=== PATIENT | female | born 1955 | race Caucasian/White ===

== ENCOUNTER 2021-06-09 14:49 | Outpatient (CLI) | payer OTHER, SELFPAY ==
--- NOTE | ~2021-06-09 | DEXA_ITS ---
Bone Density Report Name: GLENNA BETTS Age: 66 Sex: Female Ethnicity: White Date of : 1955 Indication: postmenopausal; parental hip fracture; hysterectomy; Referring Provider: SHADE LARIOS Study: Bone densitometry was performed. Exam Date: June 09, 2021 Accession number: [id number] Bone Density: Region BMD T-score Z-score Classification AP Spine (L1-L4) 1.038 -0.1 1.8 Normal Femoral Neck (Left) 0.849 0.0 1.6 Normal Total Hip (Left) 1.049 0.9 2.2 Normal Total Hip Bilateral Avg 1.020 0.6 2.0 Normal Femoral Neck (Right) 0.853 0.0 1.7 Normal Total Hip (Right) 0.989 0.4 1.7 Normal World Health Organization criteria for BMD impression classify patients as: Normal (T-score at or above -1.0), Osteopenia (T-score between -1.0 and -2.5), or Osteoporosis (T-score at or below -2.5). 10-year Fracture Risk: FRAX not reported because: All T-scores for Spine Total, Hip Total, Femoral Neck at or above -1.0 Previous Exams: Region Exam Age BMD T-score BMD Change BMD Change Date g/cm2 vs Baseline vs Previous AP Spine(L1-L4) 06/09/2021 66 1.038 -0.1 0.052(5.3%)# -0.060(-5.5%)# 08/23/2012 57 1.098 0.5 0.113(11.4%)# 0.086(8.5%)# 05/15/2010 55 1.012 -0.3 0.027(2.8%)* 0.027(2.8%)* 06/24/2006 51 0.985 -0.6 Total Hip(Left) 06/09/2021 66 1.049 0.9 -0.059(-5.4%)# -0.066(-5.9%)# 08/23/2012 57 1.115 1.4 0.006(0.6%)# 0.080(7.7%)# 05/15/2010 55 1.035 0.8 -0.073(-6.6%)* -0.073(-6.6%)* 06/24/2006 51 1.109 1.4 Total Hip(Right) 06/09/2021 66 0.989 0.4 -0.046(-4.4%)# -0.144(-12.7%) 08/23/2012 57 1.133 1.6 0.098(9.5%)# 0.054(5.0%)# 05/15/2010 55 1.079 1.1 0.044(4.3%)* 0.044(4.3%)* 06/24/2006 51 1.035 0.8 *Denotes significance at 95% confidence level, LSC for AP Spine = 0.022 g/cm2, LSC for Total Hip = 0.027 g/cm2 Clinical Information Provided by Patient: Parent has had a hip fracture Has used the following medications: Vitamin D Has the following medical conditions: Hysterectomy Patient maximum height was 61 Menopause Age: 49 No regular weight bearing exercise Drinks caffeinated beverages Onset of menses at age 12 Number of children 1 Impression: The patient has normal bone mass. The patient has risk factors, including: parental hip fracture. No significant bone loss was observed. Discussion: BONE DENSITY IS ABOVE THE MINIMUM DESIRABLE LEVEL AT ALL SKELETAL
--- NOTE | ~2021-06-09 | MM_ITS ---
EXAMINATION: MM screening [facility] BI w олег HISTORY: Screening TECHNIQUE: Craniocaudal and mediolateral oblique 3-D tomosynthesis images were obtained and synthetic 2-D images were generated. CAD analysis was submitted and interpreted. COMPARISON: Comparison to multiple prior studies sequentially, with oldest reviewed study dated 07/26. BREAST PARENCHYMAL COMPOSITION: There are scattered areas of fibroglandular density. FINDINGS: There is no evidence of suspicious mass, calcification, or architectural distortion to sugg est malignancy in either breast. There has been no suspicious interval change. IMPRESSION: 1. No mammographic evidence of malignancy. 2. Recommend routine screening mammography in one year. BI-RADS Category 1: Negative Reviewed, dictated and finalized at location A.
== END 2021-06-09 14:50 | disposition home or self-care (01) ==
LOC: ANHIMG 14:50
PROVIDERS: PCP Emergency Medicine; Visit Provider Emergency Medicine
DX: Z12.31 Encounter for screening mammogram for malignant neoplasm of breast (principal); Z78.0 Asymptomatic menopausal state
CPT/HCPCS: 77063; 77067; 77080

== ENCOUNTER 2023-12-29 13:46 | Outpatient (CLI) | payer OTHER, SELFPAY ==
--- NOTE | ~2023-12-29 | XR_ITS ---
XR chest 2V DATE: 12/29/2023 14:06 INDICATION: Shortness of breath for 3 months, increasing in severity TECHNIQUE: PA and lateral views COMPARISON: None FINDINGS: Cardiomegaly. Aortic calcification and mild unfolding. No pulmonary consolidation, pleural effusion, pulmonary vascular congestion or pneumothorax is eviden t. Osteopenia. Scoliosis and degenerative spurring of the thoracic spine. IMPRESSION: Cardiomegaly, aortic atherosclerosis Reviewed, dictated and finalized at location B.
[2023-12-29 15:27] LABS: Hemoglobin A1C 5.3 % (<5.7)
[2023-12-29 15:31] LABS: Alanine Aminotransferase 15 U/L (6-35); Albumin Level 3.7 g/dL (3.5-5.1); Alkaline Phosphatase 55 U/L (38-126); Anion Gap 5 mmol/L (4-12); Aspartate Amino Transferase 19 U/L (14-36); Bilirubin,Total 0.4 mg/dL (0.2-1.3); Blood Urea Nitrogen 16 mg/dL (7-17); Calcium 9.1 mg/dL (8.4-10.2); Carbon Dioxide 31 mmol/L (22-30); Chloride 103 mmol/L (98-107); Cholesterol 155 mg/dL (0-200); Estimated Glomerular Filt Rate 55; Glucose 89 mg/dL (65-110); HDL Direct 46 mg/dL; Potassium 3.9 mmol/L (3.4-5.0); Sodium 139 mmol/L (137-145); Triglycerides 127 mg/dL (<150)
[2023-12-29 15:42] LABS: LDL Cholesterol Direct 100 mg/dL
[2023-12-29 16:06] LABS: Vitamin D 25 Hydroxy 37.1 ng/mL
== END 2023-12-29 13:47 | disposition home or self-care (01) ==
PROVIDERS: PCP Emergency Medicine; Visit Provider Emergency Medicine
DX: R07.1 Chest pain on breathing (principal); I10 Essential (primary) hypertension; E11.9 Type 2 diabetes mellitus without complications; E55.9 Vitamin D deficiency, unspecified; R06.02 Shortness of breath; I51.7 Cardiomegaly
CPT/HCPCS: 36415; 71046; 80053; 80061; 82306; 83036

== ENCOUNTER 2024-01-16 12:47 | Outpatient (CLI) | payer OTHER, SELFPAY ==
--- NOTE | 2024-01-16 12:51 | ECHO_ITS ---
Patient Info Name: Joann Rice Age: 68 years : 1955 Gender: Female Ht: 61 in Wt: 273 lbs BSA: 2.39 m2 HR: 83 bpm BP: 189 / 115 mmHg Heart Rhythm: Sinus Rhythm Technical Quality: Poor Exam Date: 01/16/2024 1:12 PM Exam Location: Echo Lab Patient Status: Outpatient Admit Date: 01/16/2024 Staff Ordering Physician: Ronnell Figueroa MD Esthetician Facialist: Cierra Palomares RDCS Attending Provider: Ronnell Figueroa MD Referring Physician: Henry FLYNN; Exam Type: CA echo dop color flow w con Study Info Indications - cardiomegaly Complete two-dimensional, color flow and Doppler transthoracic echocardiogram is performed with contrast to opacify the left ventricle and to improve the deliniation of the left ventricle endocardial borders. Contrast/Agitated Saline Contrast/Ag. Saline: Definity Amount: 3.00 ml Reason for Poor Study: poor echocardiographic windows Summary 1. Technically suboptimal study due to poor sonographic images. 2. Contrast administered improved wall motion interpretation. 3. Left ventricular chamber dimension is normal. 4. Left ventricular systolic function is normal, estimated at 65-70%. 5. There is moderate concentric increased left ventricular wall thickness. 6. The left ventricular diastolic function is grade I diastolic dysfunction. 7. E/e' 8 is minimally elevated. 8. No pulmonary hypertension, estimated pulmonary arterial systolic pressure is 11 mmHg. Left Ventricle Technically suboptimal study due to poor sonographic images. E/e' 8 is minimally elevated. Contrast administered improved wall motion interpretation. Left ventricular chamber dimension is normal. Left ventricular systolic function is normal, estimated at 65-70%. There is moderate concentric increased left ventricular wall thickness. The left ventricular diastolic function is grade I diastolic dysfunction. Right Ventricle Right ventricular systolic function is normal and with normal TAPSE 2.7 cm. Right ventricular chamber dimension is normal. Left Atria Left atrial chamber dimension is normal. Right Atria Right atrial chamber dimension is normal. Aortic Valve The aortic valve is not well visualized. Cannot determine number of aortic valve leaflets. There is no aortic valve stenosis. There is no aortic valve regurgitation. Pulmonic Valve There is no pulmonic regurgitation. Mitral Valve There is no mitral valve stenosis. There is no mitral valve regurgitation. Tricuspid Valve There is no tricuspid valve regurgitation. No pulmonary hypertension, estimated pulmonary arterial systolic pressure is 11 mmHg. Pericardium/Pleural There is no pericardial effusion. Inferior Vena Cava Inferior vena cava is not well visualized. Aorta The aortic root size at the sinus of Valsalva is not well visualized. Left Ventricular Outflow Tract Name Value Normal LVOT 2D LVOT Diameter 1.99 cm LVOT Doppler LVOT Peak Gradient 4 mmHg LVOT Mean Gradient 3 mmHg LVOT VTI 26.36 cm LVOT VTI/AV VTI Ratio 0.98 LVOT Stroke Volume 82.27 ml
[2024-01-16] MEDS: PERFLUTREN LIPID MICROSPHERES 1.5 ML VIAL DILUTED TO 10 ML TOTAL VOLUME IV PUSH (13:35)
--- NOTE | 2024-01-16 13:56 | IVDEFINITY ---
Prior to administration of IV Definity the patient was educated on the risks and benefits of the imaging enhancing agent including potential adverse side effects. The patient verbalized understanding. Allergies were verified. No exclusion criteria were identified and at least one of the following inclusion criteria were met: 1) physician request, 2) patient technically difficult to image (per the [place] [employer] of Echocardiography guidelines of two or more segments not discernable within the apical view), or 3) questionable left ventricular function. ?
== END 2024-01-16 12:48 | disposition home or self-care (01) ==
LOC: ANHCARD 12:48
PROVIDERS: PCP Emergency Medicine; Visit Provider Emergency Medicine
DX: I51.7 Cardiomegaly (principal); I70.0 Atherosclerosis of aorta; R93.1 Abnormal findings on diagnostic imaging of heart and coronary circulation
CPT/HCPCS: C8929; Q9957

== ENCOUNTER 2024-09-10 11:52 | Outpatient (CLI) | payer OTHER, SELFPAY ==
[2024-09-10 12:32] LABS: Alanine Aminotransferase 17 U/L (6-35); Albumin Level 4.3 g/dL (3.5-5.1); Alkaline Phosphatase 66 U/L (38-126); Anion Gap 7 mmol/L (4-12); Aspartate Amino Transferase 25 U/L (14-36); Bilirubin,Total 0.8 mg/dL (0.2-1.3); Blood Urea Nitrogen 10 mg/dL (7-17); Calcium 9.2 mg/dL (8.4-10.2); Carbon Dioxide 31 mmol/L (22-30); Chloride 102 mmol/L (98-107); Estimated Glomerular Filt Rate > 60; Glucose 95 mg/dL (65-110); Potassium 3.6 mmol/L (3.4-5.0); Sodium 140 mmol/L (137-145)
== END 2024-09-10 11:53 | disposition home or self-care (01) ==
LOC: ANHLAB 11:55
PROVIDERS: PCP Emergency Medicine; Visit Provider Emergency Medicine
DX: E78.5 Hyperlipidemia, unspecified (principal); E55.9 Vitamin D deficiency, unspecified
CPT/HCPCS: 36415; 80053; 82306

== ENCOUNTER 2025-06-11 20:20 | Inpatient (IN) | payer OTHER, SELFPAY ==
--- NOTE | ~2025-06-11 | CT_ITS ---
EXAMINATION: CTA chest PE abdomen pel DATE: 06/11/2025 23:04 INDICATION: Hypoxia. Abdominal pain. TECHNIQUE: Computed tomography angiography (CTA) of the chest was performed with 100 mL Omnipaque-350 intravenous contrast timed to evaluate the pulmonary arteries. Coronal maximum intensity projection 3D-reconstructions were created by the technologist. Computed tomography (CT) of the abdomen and pelvis was performed with intravenous contrast. Automated exposure control and iterative reconstruction technique were employed. The dose-length product was 2238.86 mGy-cm. COMPARISON: None. FINDINGS: CTA chest: The lungs demonstrate mild atelectasis with a dependent predominance. There are small right and moderate-sized left pleural effusions. Cardiomegaly is noted. No pericardial effusion. The central pulmonary arteries are enlarged, consistent with pulmonary arterial hypertension. There is no pulmonary embolus. There are bridging endplate osteophytes at multiple levels in the spine, consistent with diffuse idiopathic skeletal hyperostosis (DISH). CT abdomen and pelvis: There is heterogeneous liver enhancement, consistent with passive hepatic congestion. The spleen is normal. There are gallstones in the gallbladder, which is normal in size. The pancreas and adrenal glands are normal. 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 There are no dilated loops of bowel. The appendix is normal. There are no pathologically enlarged lymph nodes. There is no free intraperitoneal fluid. Body wall edema is noted. There is severe lumbar spondylosis. IMPRESSION: 1. Small right and moderate-sized left pleural effusions. 2. No pulmonary embolus. 3. Small volume of perihepatic ascites. 4. Heterogeneous liver enhancement, consistent with passive hepatic congestion. Reviewed, dictated and finalized at location E.
--- NOTE | ~2025-06-11 | US_ITS ---
EXAMINATION: US venous doppler [facility], 06/12/2025 8:45 CDT HISTORY: Elevated D-dimer COMPARISON: None Technique: Manuel-scale and color Doppler images were attempted of the lower saphenofemoral junction, common femoral vein,superficial femoral vein, proximal deep femoral vein, proximal deep femoral vein, popliteal vein and posterior tibial veins. Findings: Deep Venous System: There is thrombus within the left femoral vein with diminished flow compression, the remaining visualized deep venous system is unremarkable Within the superficial right greater saphenous vein there is thrombus with diminished flow Probable complex Mejia's cyst right knee measures 2.3 x 1.7 cm, outpatient MRI is suggested. IMPRESSION: 1. Left-sided DVT detailed above. Right-sided superficial thrombophlebitis Reviewed, dictated and finalized at location A.
--- NOTE | ~2025-06-11 | XR_ITS ---
Examination: XR chest 1V portable Clinical History: resp failure Comparison: 06/11/2025 Technique: Portable AP Findings: Right PICC. Heart size unchanged. Persistent left pleural effusion with complete lower lobe atelectasis and consolidation. Diffuse airspace opacities right lung. No acute bony abnormality. IMPRESSION: 1. Developing edema and/or airspace disease right lung. 2. Persistent left pleural effusion with complete lower lobe atelectasis and airspace consolidation. Reviewed, dictated and finalized at location R. IMPRESSION: 1. Developing edema and/or airspace disease right lung. 2. Persistent left pleural effusion with complete lower lobe atelectasis and a irspace consolidation.
--- NOTE | ~2025-06-11 | XR_ITS ---
EXAMINATION: XR chest 1V portable DATE: 06/11/2025 20:39 INDICATION: Hypoxia. Generalized weakness. TECHNIQUE: frontal view of the chest was obtained. COMPARISON: Chest radiograph dated 12/29/2023 FINDINGS: Diffuse perihilar and lower lung predominant indistinct interstitial opacities consistent with mild pulmonary edema. Opacities at the left lower lung zones with blunting at the costophrenic angle consistent with small left pleural effusion and associated left basilar atelectasis and/or pneumonia. No pn eumothorax or right-sided pleural effusion. Indeterminate 3 x 2 cm masslike opacity projecting over the right hilar region. Heart size is normal. There are bridging osteophytes at multiple levels consistent with diffuse idiopathic skeletal hyperostosis (DISH). IMPRESSION: 1. Perihilar and lower lung predominant indistinctness opacities consistent with mild pulmonary edema. 2. Small left pleural effusion with associated left basilar atelectasis and/or pneumonia. 3. Indeterminate 3 x 2 cm masslike opacity in the right hilar region which could represent an enlarged pulmonary artery in the setting of pulmonary hypertension, hilar or pulmonary mass or right hilar lymphadenopathy. Recommend follow-up chest CT with contrast for further evaluation. Reviewed, dictated and finalized at location A. IMPRESSION: 1. Perihilar and lower lung predominant indistinctness opacities consistent wit h mild pulmonary edema. 2. Small left pleural effusion with associated left basilar atelectasis and/or pneumonia. 3. Indeterminate 3 x 2 cm masslike opacity in the right hilar region which coul d represent an enlarged pulmonary artery in the setting of pulmonary hypertensi on, hilar or pulmonary mass or right hilar lymphadenopathy. Recommend follow-up chest CT with contrast for further evaluation.
--- NOTE | ~2025-06-11 | CT_ITS ---
EXAMINATION: CT cervical spine wo con DATE: 06/11/2025 20:58 INDICATION: Fall with head injury TECHNIQUE: Computed tomography (CT) of the cervical spine was performed without intravenous contrast. Automated exposure control and iterative reconstruction technique were employed. The dose-length product was 488.00 mGy-cm. COMPARISON: None FINDINGS: Alignment is normal. Mild osteoarthritis at the atlantoaxial articulation. Vertebral body and disc heights are normal. No fractures identified. Multilevel mild bilateral cervical uncovertebral osteoarthritis. There is also multilevel facet osteoarthritis, severe on the left at C6-C7, moderate severity on the right at C7-T1 and on the left at C2-C3 through C4-C5 and mild at the remaining cervical facet joints. There is also severe facet osteoarthritis bilaterally at T2-3 and T3-T4. No central canal stenosis. Neural foraminal stenosis, moderate on the right and mild on the left at T3-T4, mild bilaterally at T2-T3. Additional mild additional mild neural foraminal stenosis on the left at C6-C7. Small posterior layering pleural effusion at the visualized left upper lung zone. Cervical soft tissues are unremarkable. IMPRESSION: 1. Degenerative skeletal changes as detailed above. No acute osseous abnormality. 2. Incompletely visualized at least small left pleural effusion. Reviewed, dictated and finalized at location A. IMPRESSION: 1. Degenerative skeletal changes as detailed above. No acute osseous abnormalit y. 2. Incompletely visualized at least small left pleural effusion.
--- NOTE | ~2025-06-11 | XR_ITS ---
EXAMINATION: XR chest 1V portable DATE: 06/16/2025 08:55 INDICATION: Pneumonia TECHNIQUE: frontal view of the chest was obtained. COMPARISON: Chest radiograph dated 06/14/2025 FINDINGS: Right upper extremity peripherally inserted central venous catheter (PICC) tip at the caudal superior vena cava. Persistent opacities in the left lower lung zone which likely includes a small left pleural effusion. Mild bronchial wall thickening most prominent in the right perihilar region. No pneumothorax or right-sided pleural effusion. Cardiomegaly. IMPRESSION: 1. Persistent opacity left lower lung zone consistent with small pleural effusion and associated left basilar atelectasis and/or pneumonia. 2. Right perihilar bronchial wall thickening which could be seen with bronchitis or peribronchial cuffing related mild pulmonary edema. 3. Cardiomegaly. Reviewed, dictated and finalized at location A. IMPRESSION: 1. Persistent opacity left lower lung zone consistent with small pleural effusi on and associated left basilar atelectasis and/or pneumonia. 2. Right perihilar bronchial wall thickening which could be seen with bronchiti s or peribronchial cuffing related mild pulmonary edema. 3. Cardiomegaly.
--- NOTE | ~2025-06-11 | CT_ITS ---
EXAMINATION: CT brain wo con DATE: 06/11/2025 20:58 INDICATION: Fall with head injury TECHNIQUE: Computed tomography (CT) of the head was performed without intravenous contrast. Sagittal and coronal reconstructions were performed. The mA was adjusted according to patient size. Iterative reconstruction technique was employed. The dose-length product was 681.00 mGy-cm. COMPARISON: None FINDINGS: No fracture. No acute intracranial hemorrhage, acute infarction or abnormal extra axial fluid collection. There is moderate scattered white matter hypoattenuation consistent with chronic small vessel ischemic disease. Symmetric prominence of the sulci and ventricles consistent with mild age-appropriate diffuse cerebral volume loss. Ventricles are normal and symmetric. No mass/mass effect. The orbits, paranasal sinuses and mastoid air cells are normal. IMPRESSION: 1. Normal aging brain. No fracture or acute intracranial process. Reviewed, dictated and finalized at location A.
[2025-06-11 20:15] VITALS: BP 182/102; PULSE 96; RESP 24; TEMP 36.3; O2SAT 79
[2025-06-11 20:25] VITALS: PULSE 95
--- NOTE | 2025-06-11 20:25 | ECG_ITS ---
Test Date: 2025-06-11 20:27:57 Measurements Intervals [place] Rate: 94 P: 53 NH: 209 QRS: -75 QRSD: 80 T: 91 QT: 341 QTc: 428 Interpretive Statements SINUS RHYTHM MARKED LEFT AXIS DEVIATION [QRS AXIS < -30] POSSIBLE ANTERIOR MYOCARDIAL INFARCTION , OF INDETERMINATE AGE [30 ms Q WAVE IN V3/V4, OR R < 0.2 mV IN V4] ABNORMAL ECG No previous ECG available for comparison Electronically Signed On 06-12-2025 07:57:25 CDT by Nitish Palafox M.D.
[2025-06-11 20:27] VITALS: O2SAT 96; O2SAT 98
--- NOTE | 2025-06-11 20:31 | ED_ITS ---
HPI - Weakness General Chief complaint: Dizziness Stated complaint: LAID IN SAME PLACE x 2 DAYS, DIZZY Time Seen by Provider: 06/11/25 20:27 Source: patient and RN notes reviewed Mode of arrival: EMS History of Present Illness HPI Narrative: Patient presents with generalized weakness. Fell 2 days ago but couldn't get up so laid in the same place until she finally called her sister. Denies underlying respiratory conditions. States she told she has an enlarged heart. She has a months long history of dizziness but not now. Hit her head. No loss of consciousness. Not on anticoagulation. Weakness is not unilateral. Blood sugar 72 for EMS who also found her to be saturating 85% on room air and applied 2L NC. Upon arrival, patient reportedly 77% on room air, placed on 3L NC. She reports she has had a cough productive of mucous/phlegm but attributed it to chronic sinusitis. She has had a light fever and chills. Lives by herself. Sometimes short of breath. Has had abdominal pain for awhile. No nausea/vomiting/diarrhea. Does note that because she was on the ground for 2 days she had urinated and defecated on self. PCP Dr Figueroa. Related Data Allergies Allergy/AdvReac Type Severity Reaction Status Date / Time nystatin (From Mycostatin) Allergy Itching Verified 06/12/25 01:54 [facility] Past Medical History Medical History (Updated 06/12/25 @ 11:18 by Sony De La Cruz DO) Major depressive disorder, single episode, in partial remission URI with cough and congestion Fatigue Primary osteoarthritis of both knees Primary osteoarthritis involving multiple joints Mixed stress and urge urinary incontinence Hypertension Vitamin D deficiency disease Surgical History Surgical History (Updated 06/12/25 @ 04:33 by Phyllis Callejas APRN) History of medial meniscus repair of left knee H/O: hysterectomy Family History Family History Mother Patient's mother is in good health Father Cerebrovascular accident, Onset Age: 89 Other Carcinoma of colon Social History Social History (Updated 06/12/25 @ 04:34 by Phyllis Callejas APRN) Social History: She lives home alone. She has 1 estranged daughter. 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 Code status: Full code Smoking status: Never smoker Alcohol intake: never Substance use: never Do You Feel Safe in your Home?: Yes Lack of Transportation: No Lack of Food: Never True Current Housing: I Have Housing Concerned About Future Housing: No Difficulty Paying Gas/Electric Bills: No Difficulty Paying for Meds: No Currently Unemployed: No Education: Bachelor's Degree Difficulty w/ Childcare or Family Care: No Living arrangements: with family Spiritual care concerns: No Exam 2 Narrative: GENERAL: Well-appearing, well-nourished, and in no acute distress. HEAD: Normocephalic, atraumatic. EYES: Non injected, non icteric ENT: Nares clear, no rhinorrhea or epistaxis. Gross auditory acuity intact. Dry mucous membranes. NECK: Supple. No meningismus. CHEST: Speaking in full sentences. No respiratory distress. Diminished bilaterally. HEART: Regular rate and rhythm. . ABDOMEN: Soft, slightly distended. No rigidity or guarding. Not peritoneal SKIN: Warm, dry, no rash. NEURO: No focal deficits. Alert and oriented, occasional word finding difficulty. Answering questions. Following commands. Normal speech without aphasia or dysarthria. PSYCH:Somewhat strange affect. Course Vital Signs Vital signs: Vital Signs Temperature 97.4 F L 06/11/25 20:15 Pulse Rate 96 06/11/25 20:15 Respiratory Rate 24 H 06/11/25 20:15 Blood Pressure 182/102 H 06/11/25 20:15 Pulse Oximetry 79 L 06/11/25 20:15 Oxygen Delivery Room Air 06/11/25 20:15 Temperature 98.1 F 06/12/25 20:00 Pulse Rate 78 06/12/25 22:00 Respiratory Rate 16 06/12/25 21:15 Blood Pressure 124/71 06/12/25 20:00 Pulse Oximetry 93 06/12/25 21:15 Oxygen Delivery High Flow Nasal Cannula 06/12/25 21:15 Oxygen Flow Rate 6 06/12/25 21:15 MDM - Weakness MDM Narrative Medical decision making narrative: Patient presents with generalized weakness. Fell 2 days ago and struck head. Unable to get self up so laid in same place. In the emergency department she is afebrile with vital signs that show tachypnea, hypoxia on room air requiring nasal cannula, and hypertension. Lactic acid is elevated and she does appear dehydrated but given concern for heart failure, will be judicious with fluids and give 500cc initially. BNP is elevated concerning for acute heart failure with no prior for comparison and no diagnosis in EMR and she denied knowledge of history of this, not on meds for this. No leukocytosis. Her hemoglobin and hematocrit are elevated with no prior for comparison and I suggest this to be due to hemoconcentration given no p.o. intake/dehydration. She has an NSTEMI given the elevated troponin but otherwise normal EKG. No chest pain. Will order aspirin and repeat troponin. She has an LILY. Mild transaminitis. Dimer greater than 3. Will proceed with CTA imaging for PE and include the abdomen pelvis to be comprehensive given these abnormalities. Patient refusing further attempts at ABG. She has evidence of urinary tract infection verses markedly contaminated urine. Out of an abundance of precaution, will treat as such and ceftriaxone given. No previous cultures to guide therapy. It has reflexed to culture this time. Patient being difficult about obtaining repeat labs. I did request that antibiotics be initiated even if 2nd set of cultures not yet obtained. Repeat troponin essentially flat. There is evidence of pulmonary hypertension and this appears to be a new diagnosis given she had an echo in 2023 which explicitly noted that this was not present at the time. CT shows minimal of ground-glass attenuation of the lungs. Given this and her O2 requirement, although felt to likely represent the heart failure, azithromycin to cover for atypicals if there is a pneumonia. Discussed with patient her work up and need for admission. Repeat echo ordered. Discussed with hospitalist NIK Ferguson for admission, IMU given NSTEMI. Differential Diagnosis Differential diagnosis: Likely acute myocardial infarction, anemia, hypoglycemia, hypothyroidism, rhabdomyolysis, sepsis, dehydration and other (acute heart failure; PE; acute viral syndrome; pneumonia; UTI; electrolyte abnormalities) Medical Records Attestation: I reviewed the patient's medical records. Medical records narrative: ECHO 2023 Summary 1. Technically suboptimal study due to poor sonographic images. 2. Contrast administered improved wall motion interpretation. 3. Left ventricular chamber dimension is normal. 4. Left ventricular systolic function is normal, estimated at 65-70%. 5. There is moderate concentric increased left ventricular wall thickness. 6. The left ventricular diastolic function is grade I diastolic dysfunction. 7. E/e' 8 is minimally elevated. 8. No pulmonary hypertension, estimated pulmonary arterial systolic pressure is 11 mmHg. Lab Data 06/12/25 07:26 06/12/25 07:26 Labs: Lab Results 06/11/25 06/11/25 06/11/25 Range/Units 20:46 21:26 23:57 WBC 8.3 (4.5-10.0) K/mm3 RBC 6.00 H (4.2-5.4) M/mm3 Hgb 17.6 H (12.0-15.0) g/dL Hct 57.6 H (37.0-47.0) % MCV 96.0 (80-100) fl MCH 29.3 (26-34) pg MCHC 30.6 L (32-36) g/dl RDW 17.1 H (11.5-14.5) % Plt Count 219 (150-375) k/mm3 MPV 10.4 (7.4-10.4) fl Immature Gran % (Auto) 0.5 (0-0.5) % Neut % (Auto) 78.9 H (45.5-73.1) % Lymph % (Auto) 12.8 L (18.3-44.2) % Morton % (Auto) 7.2 (2.6-8.5) % Eos % (Auto) 0.1 (0-4.4) % Baso % (Auto) 0.5 (0.2-1.2) % Lymph # (Auto) 1.07 (0.9-3.2) K/mm3 Morton # (Auto) 0.6 (0.1-0.6) K/mm3 Eos # (Auto) 0.0 (0-0.3) K/mm3 Baso # (Auto) 0.0 (0.0-0.1) K/mm3 Abs Immat Gran (auto) 0.04 H (0.00-0.031) K/mm3 Absolute Neuts (auto) 6.6 (1.3-6.7) K/mm3 Absolute Nucleated RBC 0.000 (0.0-0.012) K/mm3 Nucleated RBC % 0.0 (0.0-0.2) % D-Dimer 3.35 H (<0.48) ug/mL Sodium 140 (137-145) mmol/L Potassium 4.7 (3.4-5.0) mmol/L Chloride 98 (98-107) mmol/L Carbon Dioxide 31 H (22-30) mmol/L Anion Gap 11 (4-12) mmol/L BUN 48 H D (7-17) mg/dL Creatinine 1.49 H (0.7-1.0) mg/dL Estim Creat Clear Calc 37 ml/min Estimated GFR 34 L (59 - ) Glucose 98 (65-110) mg/dL Lactic Acid 3.2 H (0.7-2.0) mmol/L Calcium 9.7 (8.4-10.2) mg/dL Magnesium 1.9 (1.6-2.3) mg/dL Total Bilirubin 2.2 H (0.2-1.3) mg/dL Direct Bilirubin 0.2 (0-0.3) mg/dL Indirect Bilirubin 0.7 (0-1.1) mg/dL AST 49 H (14-36) U/L ALT 41 H (6-35) U/L Alkaline Phosphatase 63 (38-126) U/L Total Creatine Kinase 94 (30-135) U/L Troponin I 0.069 H* 0.070 H* (0.000-0.034) ng/mL NT-Pro-B Natriuret Pep 04399 H (19.9-100) pg/mL Total Protein 8.2 (6.3-8.2) g/dL Albumin 4.4 (3.5-5.1) g/dL Lipase 158 (23-300) U/L TSH 2.060 (0.465-4.680) uIU/mL Urine Color Dark yellow (Yellow) Urine Appearance Clear (Clear) Urine pH 5.0 (5.0-9.0) Ur Specific [place] 1.022 (1.001-1.035) Urine Protein 1+ H (Negative) mg/dL Urine Glucose (UA) Trace H (Negative) mg/dL Urine Ketones Trace H (Negative) mg/dL Ur Blood (Man) Non-hemolyzed trace H (Negative) Urine Nitrate Positive H (Negative) Urine Bilirubin 1+ H (Negative) Urine Urobilinogen 2.0 H (<2.0) mg/dL Add Ur Microanalysis Reviewed Leukocyte Esterase Rfl 1+ H (Negative) KUSUM/UL Urine RBC 0-2 (0-2) /hpf Urine WBC 11-20 H (0-3) /hpf Ur Squamous Epith Cells Occasional (Few) /hpf Urine Bacteria 3+ H /hpf Urine Casts 11-20 Hyaline Casts Present (None) /lpf Urine Yeast (Budding) Present H (None) /hpf Influenza A (RT-PCR) Negative (Negative) Influenza B (RT-PCR) Negative (Negative) RSV (RT-PCR) Negative (Negative) SARS-CoV-2 RNA (RT-PCR) Negative (Negative) 06/12/25 06/12/25 Range/Units 07:26 07:34 WBC 8.7 (4.5-10.0) K/mm3 RBC 5.62 H (4.2-5.4) M/mm3 Hgb 16.4 H (12.0-15.0) g/dL Hct 54.5 H (37.0-47.0) % MCV 97.0 (80-100) fl MCH 29.2 (26-34) pg MCHC 30.1 L (32-36) g/dl RDW 16.0 H (11.5-14.5) % Plt Count 192 (150-375) k/mm3 MPV 10.6 H (7.4-10.4) fl Immature Gran % (Auto) 0.3 (0-0.5) % Neut % (Auto) 72.0 (45.5-73.1) % Lymph % (Auto) 18.2 L (18.3-44.2) % Morton % (Auto) 9.0 H (2.6-8.5) % Eos % (Auto) 0.3 (0-4.4) % Baso % (Auto) 0.2 (0.2-1.2) % Lymph # (Auto) 1.58 (0.9-3.2) K/mm3 Morton # (Auto) 0.8 H (0.1-0.6) K/mm3 Eos # (Auto) 0.0 (0-0.3) K/mm3 Baso # (Auto) 0.0 (0.0-0.1) K/mm3 Abs Immat Gran (auto) 0.03 (0.00-0.031) K/mm3 Absolute Neuts (auto) 6.2 (1.3-6.7) K/mm3 Absolute Nucleated RBC 0.020 H (0.0-0.012) K/mm3 Nucleated RBC % 0.2 (0.0-0.2) % D-Dimer (<0.48) ug/mL Sodium 139 (137-145) mmol/L Potassium 4.1 (3.4-5.0) mmol/L Chloride 95 L (98-107) mmol/L Carbon Dioxide 35 H (22-30) mmol/L Anion Gap 9 (4-12) mmol/L BUN 44 H (7-17) mg/dL Creatinine 1.45 H (0.7-1.0) mg/dL Estim Creat Clear Calc 39 ml/min Estimated GFR 36 L (59 - ) Glucose 78 (65-110) mg/dL Lactic Acid 1.0 (0.7-2.0) mmol/L Calcium 8.9 (8.4-10.2) mg/dL Magnesium (1.6-2.3) mg/dL Total Bilirubin (0.2-1.3) mg/dL Direct Bilirubin (0-0.3) mg/dL Indirect Bilirubin (0-1.1) mg/dL AST (14-36) U/L ALT (6-35) U/L Alkaline Phosphatase (38-126) U/L Total Creatine Kinase 76 (30-135) U/L Troponin I 0.072 H* (0.000-0.034) ng/mL NT-Pro-B Natriuret Pep (19.9-100) pg/mL Total Protein (6.3-8.2) g/dL Albumin (3.5-5.1) g/dL Lipase (23-300) U/L TSH (0.465-4.680) uIU/mL Urine Color (Yellow) Urine Appearance (Clear) Urine pH (5.0-9.0) Ur Specific [place] (1.001-1.035) Urine Protein (Negative) mg/dL Urine Glucose (UA) (Negative) mg/dL Urine Ketones (Negative) mg/dL Ur Blood (Man) (Negative) Urine Nitrate (Negative) Urine Bilirubin (Negative) Urine Urobilinogen (<2.0) mg/dL Add Ur Microanalysis Leukocyte Esterase Rfl (Negative) KUSUM/UL Urine RBC (0-2) /hpf Urine WBC (0-3) /hpf Ur Squamous Epith Cells (Few) /hpf Urine Bacteria /hpf Urine Casts Hyaline Casts (None) /lpf Urine Yeast (Budding) (None) /hpf Influenza A (RT-PCR) (Negative) Influenza B (RT-PCR) (Negative) RSV (RT-PCR) (Negative) SARS-CoV-2 RNA (RT-PCR) (Negative) ABG Data ABG results: 06/11/25 06/12/25 21:39 07:34 Puncture Site Cancelled Right radial ABG pH Cancelled 7.355 ABG pCO2 Cancelled 56.7 H ABG pO2 Cancelled 77.4 L ABG PO2/FiO2 Ratio Cancelled 2.42 ABG HCO3 Cancelled 31.0 H ABG O2 Saturation Cancelled 94.7 L ABG O2 Content Cancelled 22.1 H ABG Base Excess Cancelled 3.6 A-a Gradient Cancelled 84.4 Oxyhemoglobin Cancelled 92.4 Total Hemoglobin Cancelled 17.0 O2 Delivery Device Cancelled Nasal cannula O2 Liters/Min Cancelled 4.0 FiO2 Cancelled 32 Imaging Data Radiologist's impression: CTA Chest STat Rad: No pulmonary embolism. Cardiomegaly and pulmonary vascular congestion. Moderate left and small right pleural effusions. Pulmonary arterial hypertension. Incidental findings: Enlarged main and central pulmonary arteries suggesting pulmonary arterial hypertension. Mediastinal lipomatosis. Cardiomegaly. Pulmonary vascular congestion. Moderate left and small right pleural effusions with associated atelectasis. Minimal ground-glass attenuation of the lungs. CT Abd & Pelvis: Findings suggesting passive hepatic congestion. Cholelithiasis. Mild bladder wall thickening. Correlate for cystitis. Incidental findings: Dilated IVC. Heterogenous liver enhancement. Cholelithiasis. Horseshoe kidney. Hysterectomy. Edema in the subcutaneous tissues of the body wall. Minimal perihepatic and perisplenic free fluid. There is mild bladder wall thickening. Colonic diverticulosis. Normal appendix. ECG Data EKG #1: Attestation: I personally reviewed and interpreted this ECG as follows: ECG completion date: 06/11/25 ECG completion time: 20:27 Prior ECG tracings: available for review (Left axis deviation and first- degree AV block present previously) Interpretation: Normal sinus rhythm at a rate of 94 beats per minute. CA interval 209 consistent with a first-degree AV block. QRS 80. QT/QTC 341/428. Left axis deviation (QRS is positive with dominant R wave in Lead I; QRS is negative with dominant S wave in leads II, III, and aVF). No T-wave inversions. EKG #2: Attestation: I personally reviewed and interpreted this ECG as follows: ECG completion date: 06/11/25 ECG completion time: 23:42 Interpretation: Normal sinus rhythm at a rate of 92 beats per minute. CA interval 207. QRS 85. QT/QTC 355/441. Poor R-wave progression across the precordial leads. No T- wave inversions. Left axis deviation (QRS is positive with dominant R wave in Lead I; QRS is negative with dominant S wave in leads II, III, and aVF) Discharge Plan Discharge Clinical Impression: Weakness, Fall, Left axis deviation, First degree atrioventricular block by electrocardiogram, Pulmonary edema, Hypoxia, Acute heart failure, LILY (acute kidney injury), Non-ST elevation CO (NSTEMI), UTI (urinary tract infection), Cardiomegaly, Pulmonary vascular congestion, Bilateral pleural effusion, Pulmonary arterial hypertension, Hepatic congestion, Cholelithiasis, Cystitis, Horseshoe kidney, Colon, diverticulosis Patient Disposition: Still a Patient Condition: Stable
[2025-06-11 20:32] VITALS: BP 165/99; PULSE 93; RESP 26; O2SAT 96
[2025-06-11 20:53] LABS: Hematocrit 57.6 % (37.0-47.0); Hemoglobin 17.6 g/dL (12.0-15.0); Immature Granulocyte Percent A 0.5 % (0-0.5); Lymphocytes Absolute Auto 1.07 K/mm3 (0.9-3.2); Mean Corpuscular HGB Conc 30.6 g/dl (32-36); Mean Corpuscular Hemoglobin 29.3 pg (26-34); Mean Corpuscular Volume 96.0 fl (80-100); Nucleated Red Blood Cells Absolute Auto 0.000 K/mm3 (0.0-0.012); Nucleated Red Blood Cells Perc 0.0 % (0.0-0.2); Platelet Count Result 219 k/mm3 (150-375); Red Blood Count 6.00 M/mm3 (4.2-5.4); White Blood Count 8.3 K/mm3 (4.5-10.0)
[2025-06-11 21:03] LABS: Alanine Aminotransferase 41 U/L (6-35); Albumin Level 4.4 g/dL (3.5-5.1); Alkaline Phosphatase 63 U/L (38-126); Anion Gap 11 mmol/L (4-12); Aspartate Amino Transferase 49 U/L (14-36); Bilirubin,Total 2.2 mg/dL (0.2-1.3); Blood Urea Nitrogen 48 mg/dL (7-17); Calcium 9.7 mg/dL (8.4-10.2); Carbon Dioxide 31 mmol/L (22-30); Chloride 98 mmol/L (98-107); Creatine Kinase 94 U/L (30-135); Estimated CRCL calculation 37 ml/min; Estimated Glomerular Filt Rate 34; Glucose 98 mg/dL (65-110); Magnesium 1.9 mg/dL (1.6-2.3); Potassium 4.7 mmol/L (3.4-5.0); Sodium 140 mmol/L (137-145); Total Protein 8.2 g/dL (6.3-8.2)
[2025-06-11 21:22] LABS: NT Pro B Type Natriuretic Pept 29400 pg/mL (19.9-100); Troponin I 0.069 ng/mL (0.000-0.034)
[2025-06-11] MEDS: ASPIRIN 81 MG CHEWABLE TABLET 324 MG PO (21:34)
[2025-06-11] MEDS: SODIUM CHLORIDE 0.9% IV 500 ML 999 ML IV CONT (21:34)
[2025-06-11 21:39] LABS: Thyroid Stimulating Hormone 2.060 uIU/mL (0.465-4.680)
[2025-06-11 21:46] LABS: Lipase 158 U/L (23-300)
[2025-06-11 21:57] LABS: Add Urine Microscopic? YES; Appearance Urine Clear (Clear); Budding Yeast Urine Present /hpf; Glucose Urine UA Trace mg/dL (Negative); Leukocyte Esterase Ur 1+ LEU/UL (Negative); Need Manual Microscopic Reviewed; Nitrate Urine Positive (Negative); Specific Grav Ur 1.022 (1.001-1.035)
[2025-06-11 22:11] LABS: Influenza A QL RT-PCR Negative (Negative); Influenza B QL RT-PCR Negative (Negative); RSV RNA, RT-PCR Negative (Negative); SARS-CoV-2 RNA PCR Negative (Negative)
--- NOTE | 2025-06-11 22:30 | PC.NURSE ---
Phlebotomy was called due to being unable to collect second set of cultures by multiple attempts/people. Phlebotomy reports pt refuses to be stuck again. EDP notified.
--- NOTE | 2025-06-11 23:12 | PC.NURSE ---
This RN attempted to draw labs on pt. Pt asked for RN to come back in 30 minutes to draw blood.
[2025-06-11] MEDS: cefTRIAXone 1 GM in SODIUM CHLORIDE 0.9% IV 50 ML 100 ML IVPB (23:18)
--- NOTE | 2025-06-11 23:18 | PC.NURSE ---
EDP notified of no second set of cultures due to pt refusal. Antibiotic started per EDP order.
[2025-06-11 23:23] VITALS: BP 171/96; PULSE 95; RESP 21; O2SAT 100
[2025-06-11 23:32] VITALS: BP 174/98; PULSE 92; RESP 21; O2SAT 95
--- NOTE | 2025-06-11 23:46 | ECG_ITS ---
Test Date: 2025-06-11 23:42:41 Measurements Intervals [place] Rate: 92 P: 48 OR: 207 QRS: -84 QRSD: 85 T: 104 QT: 355 QTc: 441 Interpretive Statements SINUS RHYTHM WITH OCCASIONAL SUPRAVENTRICULAR PREMATURE COMPLEXES LEFT AXIS DEVIATION [QRS AXIS < -30] ANTERIOR MYOCARDIAL INFARCTION , OF INDETERMINATE AGE [40+ ms Q WAVE AND/OR ST/T ABNORMALITY IN V3/V4] ABNORMAL ECG Compared to ECG 06/11/2025 20:27:57 No significant changes Electronically Signed On 06-12-2025 07:59:10 CDT by Nitish Palafox M.D.
[2025-06-12] VITALS (30 sets, daily range): BP systolic 124–174; BP diastolic 59–101; PULSE 73–99; RESP 16–27; TEMP 36.3–36.9; O2SAT 88–100; BMI 51.0; BMI 50.7
--- NOTE | 2025-06-12 | ECHO_ITS ---
Patient Info Name: Joann Rice Age: 70 years : 1955 Gender: Female Ht: 61 in Wt: 260 lbs BSA: 2.33 m2 HR: 87 bpm BP: 152 / 87 mmHg Technical Quality: Poor Exam Date: 06/12/2025 12:16 PM Patient Status: I Admit Date: 06/12/2025 Exam Type: CA echo dop color flow w con Complete two-dimensional, color flow and Doppler transthoracic echocardiogram is performed with contrast to opacify the left ventricle and to improve the deliniation of the left ventricle endocardial borders. Staff Referring Physician: Phyllis Callejas NP Power Plant Inspector: Peng Pedro III Attending Provider: Kiko Contreras MD Contrast/Agitated Saline Contrast/Ag. Saline: Definity Amount: 2.00 ml Administered By: Peng Pedro III Existing IV Access: Yes IV Access Condition: patent with no signs of infiltration Summary 1. Technically suboptimal study due to poor sonographic images. 2. Definity contrast administered improved wall motion interpretation. 3. Left ventricular chamber dimension is normal. 4. D shape ventricular septum during systole suggest right pressure overload. 5. Left ventricular systolic function is preserved, estimated at 50-55. 6. There is moderate concentric increased left ventricular wall thickness. 7. The left ventricular diastolic function is normal. 8. Right ventricular chamber dimension is severely enlarged. 9. Right ventricular systolic function is significantly reduced with abnormal TAPSE 1.1 cm. 10. Right atrial chamber dimension is moderately enlarged. 11. There is mild aortic valve sclerosis. 12. There is moderate tricuspid valve regurgitation. 13. Moderate pulmonary hypertension, estimated pulmonary arterial systolic pressure is 50 mmHg. 14. There is trivial pericardial effusion. Left Ventricle Technically suboptimal study due to poor sonographic images. Left ventricular chamber dimension is normal. Left ventricular systolic function is preserved, estimated at 50-55. There is moderate concentric increased left ventricular wall thickness. The left ventricular diastolic function is normal. Tissue doppler was not performed. D shape ventricular septum during systole suggest right pressure overload. Definity contrast administered improved wall motion interpretation. Right Ventricle Right ventricular chamber dimension is severely enlarged. Right ventricular systolic function is significantly reduced with abnormal TAPSE 1.1 cm. Right ventricle was not well seen. Left Atria Left atrial chamber dimension is normal. Right Atria Right atrial chamber dimension is moderately enlarged. Aortic Valve The aortic valve is trileaflet. There is mild aortic valve sclerosis. There is no aortic valve stenosis. There is no aortic valve regurgitation. Pulmonic Valve There is no pulmonic regurgitation. Mitral Valve There is no mitral valve stenosis. There is no mitral valve regurgitation. Tricuspid Valve There is moderate tricuspid valve regurgitation. Moderate pulmonary hypertension, estimated pulmonary arterial systolic pressure is 50 mmHg. Pericardium/Pleural There is trivial pericardial effusion. Inferior Vena Cava Normal inferior vena cava with >50% collapse upon inspiration consistent with normal right atrial pressure, 5 mmHg. Aorta The aortic root size at the sinus of Valsalva is normal. Left Ventricular Outflow Tract Name Value Normal LVOT 2D LVOT Diameter 2.2 cm Pulmonic Valve Name Value Normal PV Doppler PV Peak Velocity 69 cm/s PV Peak Gradient 2 mmHg PV Mean Gradient 1 mmHg Mitral Valve Name Value Normal MV Doppler MV Peak Gradient 3 mmHg MV Mean Gradient 1 mmHg Tricuspid Valve Name Value Normal TV Regurgitation Doppler TR Peak Velocity 335 cm/s TR Peak Gradient 45 mmHg Estimated PAP/RSVP RA Pressure 5 mmHg <=5 PA Systolic Pressure 50 mmHg <36 RV Systolic Pressure 50 mmHg <36 TV Annular TDI TV Lateral [place]ber[place] s' Velocity 6.7 cm/s >=9.5 Aortic Valve Name Value Normal AV Regurgitation 2D LVOT Area 3.9 cm2 Ventricles Name Value Normal LV Dimensions 2D/MM IVS Diastolic Thickness (2D) 1.4 cm 0.6-1.0 LVID Diastole (2D) 3.4 cm 3.8-5.2 LVIW Diastolic Thickness (2D) 1.4 cm 0.6-0.9 LVID Systole (2D) 2.7 cm 2.2-3.5 LVOT Diameter 2.2 cm LV Mass (2D Cubed) 169.34 g 67.00-162.00 LV Mass Index (2D Cubed) 73 g/m2 43-95 Relative Wall Thickness (2D) 0.84 <=0.42 LV Fractional Shortening/Ejection Fraction 2D/MM LV Fractional Shortening (2D) 20 % 27-45 LV EF (2D Teichholz) 41 % Atria Name Value Normal RA Dimensions RA Systolic Major [place] Length (4C) 6.2 cm 2.2-2.8 RA Area (4C) 24.4 cm2 <=18.0 Report Signatures
[2025-06-12 00:29] LABS: Troponin I 0.070 ng/mL (0.000-0.034)
--- NOTE | 2025-06-12 00:37 | PCRCNOTE ---
Multiple attempts at collecting blood for ABG, second RT called and attempted, all unsuccessful. Patient refused any other attempts, including blood draws by RNs.
[2025-06-12] MEDS: AZITHROMYCIN IV 500 MG in SODIUM CHLORIDE 0.9% IV 250 ML IVPB (01:14)
[2025-06-12] MEDS: FUROSEMIDE INJ 40 MG/4 ML VIAL IV PUSH ×3 (01:24→17:19)
--- NOTE | 2025-06-12 02:34 | ADMGEN ---
This patient, Joann Rice, was admitted to IMU Room 203-01. Patient/family oriented to hospital policies and general routines including ID bracelet, bed and alarms, visiting hours, pain management, procedures, bathroom and other care routines, personal items, smoking policy, room service/diet, and visiting hours. Information on how to activate the Rapid Response Team has been discussed. Patient/Family are encouraged to report perceived risks to care and to ask questions if they do not understand what they are told or what they should do.
--- NOTE | 2025-06-12 03:44 | PM.IMHP ---
H&P: HPI History of Present Illness Date/Time: 06/12/25 03:44 Chief Complaint: Dizziness Narrative: This is a 70-year-old female patient who had a dizzy spell at home and had laid on the floor for couple days. She stated that she has been coughing since February and feels that she had an infection since then. She has been feeling weak ever since February. In the emergency room the patient had tachypnea and hypoxia. Oxygen was applied at 2 L per nasal cannula. Her EKG was read as sinus rhythm with occasional supraventricular premature complexes left axis deviation. Anterior myocardial infarction. Indeterminate age. STT wave abnormal T in V3 and V4. Chest x-ray was read as. Perihilar and lower lung predominant indistinctness opacities consistent with mild pulmonary edema. 2. Small left pleural effusion with associated left basilar atelectasis and/or pneumonia. 3. Indeterminate 3 x 2 cm masslike opacity in the right hilar region which could represent an enlarged pulmonary artery in the setting of pulmonary hypertension, hilar or pulmonary mass or right hilar lymphadenopathy. Recommend follow-up chest CT with contrast for further evaluation. Head CT was read by radiologist as a normal aging brain. No fracture or acute intracranial process. CT of the cervical spine was read as1. Degenerative skeletal changes as detailed above. No acute osseous abnormality. 2. Incompletely visualized at least small left pleural effusion. Her D-dimer was elevated to 3.35. The patient refused ABGs in the emergency room. Other abnormal labs include BUN 48, creatinine 1.49, estimated GFR 34, AST is 49, ALT is 41, and pro BMP 29,400. UA shows positive nitrates, 1+ leukocyte Estrace and urine wbc's 11 -20. Viral serologies negative. CT shows minimal of ground-glass attenuation of the lungs. Given this and her O2 requirement, although felt to likely represent the heart failure, azithromycin to cover for atypicals if there is a pneumonia. The patient was given Tylenol, Zofran, a L of IV fluids, aspirin, ceftriaxone, and azithromycin, and IV Lasix in the emergency room. The patient is being admitted to observation status in IMU on the date of service of 06/12/2025 Review of Systems Constitutional: Constitutional: Reports as per HPI and Reports no additional constitutional complaints Eyes: Eyes: Reports as per HPI and Reports no additional eye complaints ENT: Reports no additional ear, nose, mouth, and throat complaints and Reports Normal hearing present Cardiovascular: Cardiovascular: Reports no additional cardiovascular complaints Respiratory: Respiratory: Reports as per HPI and Reports no additional respiratory complaints Gastrointestinal: Gastrointestinal: Reports as per HPI and Reports no additional gastrointestinal complaints Genitourinary: Genitourinary: Reports no additional female genitourinary complaints Musculoskeletal: Musculoskeletal: Reports no additional musculoskeletal complaints Integumentary/Breasts: Skin/Breast: Reports system reviewed and no additional complaints, except as docu Neurologic: Reports no additional neurologic complaints and Reports Normal hearing present Psychiatric: Psychiatric: Reports no additional psychiatric complaints and Reports as per HPI Hematologic/Lymphatic: Hematologic/Lymphatic: Reports no additional hematologic/lymphatic complaints Allergic/Immunologic: Allergic/Immunologic: Reports no additional allergic/immunologic complaints [facility] Past Medical History Medical History (Updated 06/12/25 @ 04:54 by Phyllis Callejas APRN) Major depressive disorder, single episode, in partial remission URI with cough and congestion Fatigue Primary osteoarthritis of both knees Primary osteoarthritis involving multiple joints Mixed stress and urge urinary incontinence Hypertension Vitamin D deficiency disease Surgical History Surgical History (Updated 06/12/25 @ 04:33 by Phyllis Callejas APRN) History of medial meniscus repair of left knee H/O: hysterectomy Family History Family History Mother Patient's mother is in good health Father Cerebrovascular accident, Onset Age: 89 Other Carcinoma of colon Social History Social History (Updated 06/12/25 @ 04:34 by Phyllis Callejas APRN) Social History: She lives home alone. She has 1 estranged daughter. 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 Code status: Full code Smoking status: Never smoker Alcohol intake: never Substance use: never Do You Feel Safe in your Home?: Yes Lack of Transportation: No Lack of Food: Never True Current Housing: I Have Housing Concerned About Future Housing: No Difficulty Paying Gas/Electric Bills: No Difficulty Paying for Meds: No Currently Unemployed: No Education: Bachelor's Degree Difficulty w/ Childcare or Family Care: No Living arrangements: with family Spiritual care concerns: No Meds Home Medications and Allergies Home Medications ?Medication ?Instructions ?Recorded ?Confirmed ?Type duloxetine 60 mg capsule,delayed See Rx Instructions .Route 04/29/24 06/12/25 Rx release .COMPLEX #90 caps lisinopril 20 mg tablet See Rx Instructions .Route 04/29/24 06/12/25 Rx .COMPLEX #90 tabs albuterol sulfate 90 mcg/actuation See Rx Instructions .Route 09/09/24 06/12/25 Rx aerosol inhaler .COMPLEX #8.5 ea fluticasone propionate 50 See Rx Instructions .Route 10/01/24 06/12/25 Rx mcg/actuation nasal .COMPLEX #48 mL spray,suspension cholecalciferol (vitamin D3) 50 See Rx Instructions .Route 02/03/25 06/12/25 Rx mcg (2,000 unit) tablet .COMPLEX #90 tabs celecoxib 200 mg capsule See Rx Instructions .Route 04/21/25 06/12/25 Rx .COMPLEX #90 caps metoprolol succinate 50 mg 50 mg PO DAILY #90 tabs 04/21/25 06/12/25 Rx tablet,extended release 24 hr (Toprol XL) verapamil 240 mg tablet,extended See Rx Instructions .Route 04/21/25 06/12/25 Rx release .COMPLEX #90 tabs Allergies Allergy/AdvReac Type Severity Reaction Status Date / Time nystatin (From Mycostatin) Allergy Itching Verified 06/12/25 01:54 Vital Signs Vital Signs - 24 hr 06/11/25 20:15 06/11/25 20:25 06/11/25 20:27 Temperature 97.4 F L Pulse Rate 96 95 Respiratory Rate 24 H Blood Pressure 182/102 H Pulse Oximetry 79 L 96 Oxygen Delivery Room Air Nasal Cannula Oxygen Flow Rate 3 06/11/25 20:27 06/11/25 20:32 06/11/25 23:23 Temperature Pulse Rate 93 95 Respiratory Rate 26 H 21 H Blood Pressure 165/99 H 171/96 H Pulse Oximetry 98 96 100 Oxygen Delivery Nasal Cannula Oxygen Flow Rate 3 06/11/25 23:32 06/12/25 00:30 06/12/25 01:26 Temperature Pulse Rate 92 94 88 Respiratory Rate 21 H 27 H 23 H Blood Pressure 174/98 H 174/101 H Pulse Oximetry 95 98 Oxygen Delivery Oxygen Flow Rate 06/12/25 01:32 06/12/25 02:21 06/12/25 03:23 Temperature 97.7 F Pulse Rate 91 92 93 Respiratory Rate 20 22 H 20 Blood Pressure 164/100 H 160/100 H 152/87 H Pulse Oximetry 100 100 95 Oxygen Delivery Oxygen Flow Rate 06/12/25 03:31 Temperature Pulse Rate 87 Respiratory Rate 26 H Blood Pressure Pulse Oximetry 96 Oxygen Delivery Nasal Cannula Oxygen Flow Rate 5 Exam Const: General: cooperative, healthy appearing, comfortable, no acute distress, well developed, awake, Physically active, average body habitus and well nourished Nutritional Appearance: average body habitus and well nourished Orientation/consciousness: oriented to person, oriented to place, oriented to time and patient oriented x3 HENMT: Head: normal to inspection, No palpable skull fracture present, normocephalic, atraumatic and abrasion Ears: hearing grossly normal bilaterally and external ears normal Eyes: General: appearance normal, both eyes and all related structures Alignment and Position: alignment normal Periorbital: periorbital findings normal Eyelids: eyelids normal EOM: EOMs intact bilaterally Neck: Neck: normal visual inspection and full ROM Resp: Effort & Inspection: normal respiratory effort Auscultation: clear to auscultation bilaterally Cardio: Palpation: normal PMI Rate: regular rate Rhythm: regular rhythm Heart sounds: S1 normal heart sound present and S2 normal heart sound present Peripheral pulses: Peripheral pulses 2+ throughout GI: Inspection: normal to inspection Percussion: Yes normal to percussion Auscultation: normal bowel sounds Rectal Exam: deferred Skin: General skin exam: normal color Lesions: no lesions Rashes: no rashes Trauma: no lacerations or abrasions Wounds: no wounds Hair: normal Nails: normal Neuro: General: oriented to person, oriented to place, oriented to time and patient oriented x3 Cranial nerves: Yes Equal, round and reactive pupils present and Yes Normal hearing present Cognition (Neuro): normal cognition Speech: normal speech Motor exam (neuro): 5/5 motor strength present throughout Sensory Exam: normal sensation Extrem: General: normal to inspection Right upper extremity: normal to inspection and shoulder/upper arm Left upper extremity: normal to inspection and shoulder/upper arm Right lower extremity: normal to inspection Left lower extremity: normal to inspection Psych: Appearance: grossly normal Mental Status: mental status grossly normal Speech and movement: Normal speech and movement present Affect: normal affect Attitude: cooperative Thought process: Normal thought process present Thought content: Yes Normal thought content present H&P: Results Labs Labs: Short CBC 06/11/25 Range/Units 20:46 WBC 8.3 (4.5-10.0) K/mm3 Hgb 17.6 H (12.0-15.0) g/dL Hct 57.6 H (37.0-47.0) % Plt Count 219 (150-375) k/mm3 BMP 06/11/25 20:46 Sodium 140 Potassium 4.7 Chloride 98 Carbon Dioxide 31 H BUN 48 H D Creatinine 1.49 H Glucose 98 Calcium 9.7 Cardiac Enzymes 06/11/25 06/11/25 Range/Units 20:46 23:57 Total Creatine Kinase 94 (30-135) U/L Troponin I 0.069 H* 0.070 H* (0.000-0.034) ng/mL Liver Function 06/11/25 Range/Units 20:46 Total Bilirubin 2.2 H (0.2-1.3) mg/dL Direct Bilirubin 0.2 (0-0.3) mg/dL AST 49 H (14-36) U/L ALT 41 H (6-35) U/L Alkaline Phosphatase 63 (38-126) U/L Albumin 4.4 (3.5-5.1) g/dL Urine 06/11/25 Range/Units 21:26 Urine Color Dark yellow (Yellow) Urine Appearance Clear (Clear) Urine pH 5.0 (5.0-9.0) Ur Specific [place] 1.022 (1.001-1.035) Urine Protein 1+ H (Negative) mg/dL Urine Glucose (UA) Trace H (Negative) mg/dL ECG Interpretation: -Rate 92 [place] 207 QRSd 85 QT 355 QTc 441 --[place]-- P 48 QRS -84 T 104 SINUS RHYTHM WITH OCCASIONAL SUPRAVENTRICULAR PREMATURE COMPLEXES LEFT AXIS DEVIATION [QRS AXIS < -30] ANTERIOR MYOCARDIAL INFARCTION , OF INDETERMINATE AGE [40+ ms Q WAVE AND/OR ST/T ABNORMALITY IN V3/V4] Compared to ECG 06/11/2025 20:27:57 No significant changes Imaging CT scan - head: Radiologist's impression: Impressions Chest X-Ray 06/11/25 20:44 IMPRESSION: 1. Perihilar and lower lung predominant indistinctness opacities consistent with mild pulmonary edema. 2. Small left pleural effusion with associated left basilar atelectasis and/or pneumonia. 3. Indeterminate 3 x 2 cm masslike opacity in the right hilar region which could represent an enlarged pulmonary artery in the setting of pulmonary hypertension, hilar or pulmonary mass or right hilar lymphadenopathy. Recommend follow-up chest CT with contrast for further evaluation. Head CT 06/11/25 21:02 IMPRESSION: 1. Normal aging brain. No fracture or acute intracranial process. Cervical Spine CT 06/11/25 21:05 IMPRESSION: 1. Degenerative skeletal changes as detailed above. No acute osseous abnormality. 2. Incompletely visualized at least small left pleural effusion. CT shows minimal of ground-glass attenuation of the lungs. Assessment and Plan Assessment and plan (1) Pneumonia: Code(s): J18.9 - Pneumonia, unspecified organism Status: Acute Assessment and Plan: -continue with azithromycin and Rocephin at this time. QTC is at the higher end of normal. If there is concern for prolonged QTC may consider changing the azithromycin to doxycycline. -blood and sputum cultures are pending. -initially the patient was refusing the blood cultures however she did allow it after I explained why we needed to get the cultures. -continue with DuoNebs (2) Acute heart failure: Code(s): I50.9 - Heart failure, unspecified Status: Acute Assessment and Plan: -her last echo from 01/16/2024 was read as a following 1. Technically suboptimal study due to poor sonographic images. 2. Contrast administered improved wall motion interpretation. 3. Left ventricular chamber dimension is normal. 4. Left ventricular systolic function is normal, estimated at 65-70%. 5. There is moderate concentric increased left ventricular wall thickness. 6. The left ventricular diastolic function is grade I diastolic dysfunction. 7. E/e' 8 is minimally elevated. 8. No pulmonary hypertension, estimated pulmonary arterial systolic pressure is 11 mmHg. - echo has been ordered for today. -cardiology consultation would greatly be appreciated for CHF and elevated troponins. -she was initially given IV fluids in the emergency room and then a dose of Lasix. However given her acute kidney injury I did not continue with Lasix for now. -continue with strict I&O -daily weight -continued metoprolol -lisinopril is on hold at this time. (3) Hypertension: Qualifiers: Hypertension type: primary hypertension Qualified Code(s): I10 - Essential (primary) hypertension Code(s): I10 - Essential (primary) hypertension Status: Acute Assessment and Plan: Blood pressure is 152/87. -lisinopril currently on hold due to the acute kidney injury -continue with metoprolol -continued for a mental (4) Major depressive disorder, single episode, in partial remission: Code(s): F32.4 - Major depressive disorder, single episode, in partial remission Status: Acute Assessment and Plan: -continue duloxetine (5) LILY (acute kidney injury): Code(s): N17.9 - Acute kidney failure, unspecified Status: Acute Assessment and Plan: -no further Lasix were given at this time. -lisinopril is on hold. -the patient was just given a L of normal saline in the emergency room and then was given IV Lasix. -daily BMPs -avoid nephrotoxic medication. (6) UTI (urinary tract infection): Code(s): N39.0 - Urinary tract infection, site not specified Status: Acute Assessment and Plan: -the patient is currently on Rocephin -blood cultures are pending -UA with reflux culture. -she does not appear toxic. (7) Fall: Code(s): W19.XXXA - Unspecified fall, initial encounter Status: Acute Assessment and Plan: -the patient stated that she was weak and fell and laid on the floor for 2 days. -check daily CK. -care management specialist evaluation greatly be appreciated for possible rehab -PT OT evaluation currently be appreciated. Quality VTE Prophylaxis VTE prophylaxis: mechanical ordered
--- NOTE | 2025-06-12 04:30 | PC.NURSE ---
Addendum entered by Roz Curiel RN 06/12/25 04:44: phlebotomy tried to get culture with no luck, Kd in vascular access was called and message left. Original Note: phlebotomy tried to get ABGs with no luck, Kd in vascular access was called and message left.
[2025-06-12 07:34] LABS: Hematocrit 54.5 % (37.0-47.0); Hemoglobin 16.4 g/dL (12.0-15.0); Immature Granulocyte Percent A 0.3 % (0-0.5); Lymphocytes Absolute Auto 1.58 K/mm3 (0.9-3.2); Mean Corpuscular HGB Conc 30.1 g/dl (32-36); Mean Corpuscular Hemoglobin 29.2 pg (26-34); Mean Corpuscular Volume 97.0 fl (80-100); Nucleated Red Blood Cells Absolute Auto 0.020 K/mm3 (0.0-0.012); Nucleated Red Blood Cells Perc 0.2 % (0.0-0.2); Platelet Count Result 192 k/mm3 (150-375); Red Blood Count 5.62 M/mm3 (4.2-5.4); White Blood Count 8.7 K/mm3 (4.5-10.0)
[2025-06-12 07:37] LABS: Alveolar/Arterial O2 Gradient 84.4 mmHg; Fractional Inspired Oxygen 32 %; HCO3 ABG 31.0 mEq/l (22.0-26.0); Oxygen Content ABG 22.1 %vol (16.0-22.0); Oxygen Saturation ABG 94.7 % (95.0-100.0); PCO2 ABG 56.7 mmHg (35.0-45.0); PO2 ABG 77.4 mmHg (80.0-100.0); PO2 FiO2 Ratio Arterial Blood 2.42 %
[2025-06-12 07:48] LABS: Liters per Minute 4.0 LPM; Modified Allen's Test Pass; Site Drawn RIGHT RADIAL
[2025-06-12 07:54] LABS: Anion Gap 9 mmol/L (4-12); Blood Urea Nitrogen 44 mg/dL (7-17); Calcium 8.9 mg/dL (8.4-10.2); Carbon Dioxide 35 mmol/L (22-30); Chloride 95 mmol/L (98-107); Estimated CRCL calculation 39 ml/min; Estimated Glomerular Filt Rate 36; Glucose 78 mg/dL (65-110); Potassium 4.1 mmol/L (3.4-5.0); Sodium 139 mmol/L (137-145)
[2025-06-12 07:57] LABS: Creatine Kinase 76 U/L (30-135)
[2025-06-12 08:06] LABS: Troponin I 0.072 ng/mL (0.000-0.034)
[2025-06-12] MEDS: IPRATROPIUM 0.5 MG/ALBUTEROL SULFATE 2.5 MG AMPUL.NEB 3 ML INHALATION ×3 (08:23→21:15)
[2025-06-12] MEDS: METOPROLOL SUCCINATE EXT REL 50 MG TABCR PO ×2 (09:35→20:11)
[2025-06-12] MEDS: DULoxetine HCL 60 MG CAPSULE.DR BY MOUTH (09:35)
[2025-06-12] MEDS: VERAPAMIL HCL ER 240 MG TABLET.ER BY MOUTH (09:35)
[2025-06-12] MEDS: FLUTICASONE PROPIONATE 0.05% NA SPR 16 GM BTL (*BKC) 2 SPRAY NASAL (09:37)
--- NOTE | 2025-06-12 10:41 | PCPTNOTE ---
Pt has new DVT. Per nursing, pt not appropriate to see at this time. Will follow.
--- NOTE | 2025-06-12 11:14 | P.CONCA_ITS ---
Assessment and Plan Assessment and plan (1) BIRD (dyspnea on exertion): Code(s): R06.09 - Other forms of dyspnea Status: Acute Assessment and Plan: This could be due to pneumonia, CHF. (2) Pneumonia: Code(s): J18.9 - Pneumonia, unspecified organism Status: Acute Assessment and Plan: On antibiotics as per hospitalist. (3) Pulmonary vascular congestion: Code(s): R09.89 - Other specified symptoms and signs involving the circulatory and respiratory systems Status: Acute Assessment and Plan: On Lasix 40 mg IV BID. Check echo. (4) Hypertension: Qualifiers: Hypertension type: primary hypertension Qualified Code(s): I10 - Essential (primary) hypertension Code(s): I10 - Essential (primary) hypertension Status: Acute Assessment and Plan: Stable. Stop Verapamil since on Metoprolol. (5) Elevated troponin: Code(s): R79.89 - Other specified abnormal findings of blood chemistry Status: Acute Assessment and Plan: Slight elevation at 0.072. This could be due to pneumonia or CHF. Check echo. History of Present Illness History of Present Illness Consult date/time: 06/12/25 11:14 Reason For Visit: NSTEMI, Acute heart failure; Pulm HTN; Weakness; A Narrative: 70 yr old woman presents to hospital with weakness and sob. She has a history of hypertension. Reports she felt dizzy and weak at home, living alone and could not get up for 2 days. Admits to cough, fever, chills. Finally she called fire department to come get her and brought her to hospital. It was found she has pneumonia, CHF, started on antibiotics and diuretics. Currently not feeling dizzy. She normally can walk only around her house due to weakness. Denies chest pain, orthopnea, PND, edema, palpitations. Review of Systems 2 Review of Systems: All systems reviewed & are unremarkable except as noted in HPI and below Constitutional: Constitutional: Reports as per HPI, Reports chills, Reports fatigue and Reports fever(s) Cardiovascular: Cardiovascular: Reports as per HPI, Denies chest pain and Denies irregular heart rhythm Respiratory: Respiratory: Reports as per HPI, Reports cough and Reports dyspnea Gastrointestinal: Gastrointestinal: Reports as per HPI and Denies abdominal pain Genitourinary: Genitourinary: Reports as per HPI and Denies dysuria Musculoskeletal: Musculoskeletal: Reports as per HPI Neurologic: Reports as per HPI, Reports dizziness and Denies syncope [facility] Past Medical History Medical History (Updated 06/12/25 @ 11:18 by Sony De La Cruz DO) Major depressive disorder, single episode, in partial remission URI with cough and congestion Fatigue Primary osteoarthritis of both knees Primary osteoarthritis involving multiple joints Mixed stress and urge urinary incontinence Hypertension Vitamin D deficiency disease Surgical History Surgical History (Updated 06/12/25 @ 04:33 by Phyllis Callejas APRN) History of medial meniscus repair of left knee H/O: hysterectomy Family History Family History Mother Patient's mother is in good health Father Cerebrovascular accident, Onset Age: 89 Other Carcinoma of colon Social History Social History (Updated 06/12/25 @ 04:34 by Phyllis Callejas APRN) Social History: She lives home alone. She has 1 estranged daughter. 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 Code status: Full code Smoking status: Never smoker Alcohol intake: never Substance use: never Do You Feel Safe in your Home?: Yes Lack of Transportation: No Lack of Food: Never True Current Housing: I Have Housing Concerned About Future Housing: No Difficulty Paying Gas/Electric Bills: No Difficulty Paying for Meds: No Currently Unemployed: No Education: Bachelor's Degree Difficulty w/ Childcare or Family Care: No Living arrangements: with family Spiritual care concerns: No Meds Home Medications and Allergies Home Medications ?Medication ?Instructions ?Recorded ?Confirmed ?Type duloxetine 60 mg capsule,delayed See Rx Instructions . Route 04/29/24 06/12/25 Rx release .COMPLEX #90 caps lisinopril 20 mg tablet See Rx Instructions .Route 0 04/29/24 06/12/25 Rx .COMPLEX #90 tabs albuterol sulfate 90 mcg/actuation See Rx Instructions .Route 09/09/24 06/12/25 Rx aerosol inhaler .COMPLEX #8.5 ea fluticasone propionate 50 See Rx Instructions .Route 0 10/01/24 06/12/25 Rx mcg/actuation nasal .COMPLEX #48 mL spray,suspension cholecalciferol (vitamin D3) 50 See Rx Instructions .R oute 02/03/25 06/12/25 Rx mcg (2,000 unit) tablet .COMPLEX #90 tabs celecoxib 200 mg capsule See Rx Instructions .Route 0 04/21/25 06/12/25 Rx .COMPLEX #90 caps metoprolol succinate 50 mg 50 mg PO DAILY #90 tabs 06/12/25 Rx tablet,extended release 24 hr (Toprol XL) verapamil 240 mg tablet,extended See Rx Instructions . Route 04/21/25 06/12/25 Rx release .COMPLEX #90 tabs Allergies Allergy/AdvReac Type Severity Reaction Status Date / Time nystatin (From Mycostatin) Allergy Itching Verified 06/12/25 01:54 Vital Signs Vital Signs - 24 hr 06/11/25 20:15 06/11/25 20:25 06/11/25 20:27 Temperature 97.4 F L Pulse Rate 96 95 Respiratory Rate 24 H Blood Pressure 182/102 H Pulse Oximetry 79 L 96 Oxygen Delivery Room Air Nasal Cannula Oxygen Flow Rate 3 06/11/25 20:27 06/11/25 20:32 06/11/25 23:23 Temperature Pulse Rate 93 95 Respiratory Rate 26 H 21 H Blood Pressure 165/99 H 171/96 H Pulse Oximetry 98 96 100 Oxygen Delivery Nasal Cannula Oxygen Flow Rate 3 06/11/25 23:32 06/12/25 00:30 06/12/25 01:26 Temperature Pulse Rate 92 94 88 Respiratory Rate 21 H 27 H 23 H Blood Pressure 174/98 H 174/101 H Pulse Oximetry 95 98 Oxygen Delivery Oxygen Flow Rate 06/12/25 01:32 06/12/25 02:21 06/12/25 03:23 Temperature 97.7 F Pulse Rate 91 92 93 Respiratory Rate 20 22 H 20 Blood Pressure 164/100 H 160/100 H 152/87 H Pulse Oximetry 100 100 95 Oxygen Delivery Oxygen Flow Rate 06/12/25 03:31 06/12/25 04:00 06/12/25 06:00 Temperature Pulse Rate 87 85 87 Respiratory Rate 26 H Blood Pressure Pulse Oximetry 96 Oxygen Delivery Nasal Cannula Oxygen Flow Rate 5 06/12/25 07:55 06/12/25 08:24 06/12/25 08:24 Temperature 97.5 F L Pulse Rate 94 97 Respiratory Rate 20 20 Blood Pressure 158/89 H Pulse Oximetry 92 93 Oxygen Delivery Nasal Cannula Oxygen Flow Rate 4 06/12/25 08:32 06/12/25 08:35 06/12/25 08:44 Temperature Pulse Rate 99 Respiratory Rate 20 Blood Pressure Pulse Oximetry 88 L 94 Oxygen Delivery Nasal Cannula High Flow Nasal Cannula Oxygen Flow Rate 4 6 06/12/25 09:35 Temperature Pulse Rate 98 Respiratory Rate Blood Pressure Pulse Oximetry Oxygen Delivery Oxygen Flow Rate Exam 2 Const: General: cooperative, healthy appearing, comfortable and obese Resp: Auscultation: clear to auscultation bilaterally, no crackles, no rales, no rhonchi and no wheezes Cardio: Rate: regular rate Rhythm: regular rhythm Heart sounds: no murmurs Peripheral pulses: dorsalis pedis present GI: GI Palp: No abdominal tenderness and Yes Soft to palpation Neuro: General: oriented to person, oriented to place and oriented to time Extrem: Right lower extremity: no edema Left lower extremity: no edema Results Labs and Meds 06/12/25 07:26 06/12/25 07:26 Lab results: Cardiac Enzymes 06/11/25 06/11/25 06/12/25 Range/Units 20:46 23:57 07:26 AST 49 H (14-36) U/L Troponin I 0.069 H* 0.070 H* 0.072 H* (0.000-0.034) ng/mL CBC 06/11/25 06/12/25 Range/Units 20:46 07:26 WBC 8.3 8.7 (4.5-10.0) K/mm3 RBC 6.00 H 5.62 H (4.2-5.4) M/mm3 Hgb 17.6 H 16.4 H (12.0-15.0) g/dL Hct 57.6 H 54.5 H (37.0-47.0) % Plt Count 219 192 (150-375) k/mm3 Lymph # (Auto) 1.07 1.58 (0.9-3.2) K/mm3 [place] # (Auto) 0.6 0.8 H (0.1-0.6) K/mm3 Eos # (Auto) 0.0 0.0 (0-0.3) K/mm3 Baso # (Auto) 0.0 0.0 (0.0-0.1) K/mm3 Comprehensive Metabolic Panel 06/11/25 06/12/25 Range/Units 20:46 07:26 Sodium 140 139 (137-145) mmol/L Potassium 4.7 4.1 (3.4-5.0) mmol/L Chloride 98 95 L (98-107) mmol/L Carbon Dioxide 31 H 35 H (22-30) mmol/L BUN 48 H D 44 H (7-17) mg/dL Creatinine 1.49 H 1.45 H (0.7-1.0) mg/dL Glucose 98 78 (65-110) mg/dL Calcium 9.7 8.9 (8.4-10.2) mg/dL Direct Bilirubin 0.2 (0-0.3) mg/dL Indirect Bilirubin 0.7 (0-1.1) mg/dL AST 49 H (14-36) U/L ALT 41 H (6-35) U/L Alkaline Phosphatase 63 (38-126) U/L Total Protein 8.2 (6.3-8.2) g/dL Albumin 4.4 (3.5-5.1) g/dL Intake and Output 06/11/25 06/12/25 06/12/25 23:59 07:59 15:59 Intake Total 550 250 360 Output Total 300 1500 Balance 250 -1250 360 Intake: IV 550 250 Sodium Chloride 0.9% IV 500 ml 500 @ 999 mls/hr IV CONT .Q31M STA Rx#:[id number] Azithromycin IV 500 mg In 250 Sodium Chloride 0.9% IV 250 ml @ 250 mls/hr IVPB ONCE ONE Rx#: [id number] 1 gm In Sodium 50 Chloride 0.9% IV 50 ml @ 100 mls/hr IVPB ONCE STA Rx#: [id number] Oral 360 Output: Urine 300 1500 Patient Weight 06/12/25 23:59 Weight 121.8 kg
[2025-06-12] MEDS: LIDOCAINE 1% PF INJ 5 ML VIAL INFILTRATE (11:30)
[2025-06-12 12:45] LABS: INR 1.3; Prothrombin Time 15.7 Seconds (11.1-14.7)
[2025-06-12 12:46] LABS: Partial Thromboplastin Time 26.5 Seconds (22.3-36.8)
[2025-06-12] MEDS: PERFLUTREN LIPID MICROSPHERES 1.5 ML VIAL DILUTED TO 10 ML TOTAL VOLUME IV PUSH (12:48)
--- NOTE | 2025-06-12 12:48 | IVDEFINITY ---
Prior to administration of IV Definity the patient was educated on the risks and benefits of the imaging enhancing agent including potential adverse side effects. The patient verbalized understanding. Allergies were verified. No exclusion criteria were identified and at least one of the following inclusion criteria were met: 1) physician request, 2) patient technically difficult to image (per the [place] [employer] guidelines of two or more segments not discernable within the apical view), or 3) questionable left ventricular function. ?
[2025-06-12] MEDS: ALBUMIN HUMAN 25% 25 GM/100 ML 100 ML IVPB (12:57)
[2025-06-12] MEDS: HEPARIN SOD/D5W 100 UNITS/ML 25,000 UNITS/250 ML BAG 14 UNITS IV CONT (12:58)
[2025-06-12] MEDS: CENTRAL LINE FLUSH 10 ML IV PUSH ×2 (14:15→22:32)
--- NOTE | 2025-06-12 17:10 | PM.IMPN ---
Progress Note: A&P Assessment and Plan (1) Pneumonia: Code(s): J18.9 - Pneumonia, unspecified organism Status: Acute Assessment and Plan: CT chest no pneumonia Stop Antibiotics Pneumonia ruled out (2) Acute heart failure: Code(s): I50.9 - Heart failure, unspecified Status: Acute Assessment and Plan: Presented with fall and SOB CT chest showed bilateral pleural effusion ECHO showed grade I diastolic dysfunction, eF wnl Continue lasix 40mg bid IV cardiology following (3) Hypertension: Qualifiers: Hypertension type: primary hypertension Qualified Code(s): I10 - Essential (primary) hypertension Code(s): I10 - Essential (primary) hypertension Status: Acute Assessment and Plan: Blood pressure is 152/87. -lisinopril currently on hold due to the acute kidney injury -continue with metoprolol -continued for a mental (4) Major depressive disorder, single episode, in partial remission: Code(s): F32.4 - Major depressive disorder, single episode, in partial remission Status: Acute Assessment and Plan: -continue duloxetine (5) LILY (acute kidney injury): Code(s): N17.9 - Acute kidney failure, unspecified Status: Acute Assessment and Plan: likely cardiorenal . -lisinopril is on hold. contineu Lasix and monitor (6) UTI (urinary tract infection): Code(s): N39.0 - Urinary tract infection, site not specified Status: Acute Assessment and Plan: -the patient is currently on Rocephin -blood cultures are pending -UA with reflux culture. Ceftriaxone (7) Fall: Code(s): W19.XXXA - Unspecified fall, initial encounter Status: Acute Assessment and Plan: -the patient stated that she was weak and fell and laid on the floor for 2 days. -check daily CK. -healthcare administrator evaluation greatly be appreciated for possible rehab -PT OT evaluation currently be appreciated. Plan LLE DVT Venous doppler showed left sided DVT Started Heparin infusion Monitor DVT prophylaxis on heparin infusion Subjective Date/time seen: 06/12/25 17:10 Interval history: Comfortable at bedside Review of Systems Constitutional: Constitutional: Reports as per HPI and Reports no additional constitutional complaints Eyes: Eyes: Reports as per HPI and Reports no additional eye complaints ENT: Reports system reviewed and no additional complaints, except as documented and Reports Normal hearing present Cardiovascular: Cardiovascular: Reports no additional cardiovascular complaints Respiratory: Respiratory: Reports as per HPI and Reports no additional respiratory complaints Gastrointestinal: Gastrointestinal: Reports as per HPI and Reports no additional gastrointestinal complaints Genitourinary: Genitourinary: Reports no additional female genitourinary complaints Musculoskeletal: Musculoskeletal: Reports no additional musculoskeletal complaints Integumentary/Breasts: Skin/Breast: Reports system reviewed and no additional complaints, except as docu Neurologic: Reports system reviewed and no additional complaints, except as documented and Reports Normal hearing present Psychiatric: Psychiatric: Reports no additional psychiatric complaints and Reports as per HPI Hematologic/Lymphatic: Hematologic/Lymphatic: Reports no additional hematologic/lymphatic complaints Allergic/Immunologic: Allergic/Immunologic: Reports no additional allergic/immunologic complaints Exam Const: General: cooperative, healthy appearing, comfortable, no acute distress, well developed, awake, Physically active, average body habitus and well nourished Nutritional Appearance: average body habitus and well nourished Orientation/consciousness: oriented to person, oriented to place, oriented to time and patient oriented x3 HENMT: Head: normal to inspection, No palpable skull fracture present, normocephalic, atraumatic and abrasion Ears: hearing grossly normal bilaterally and external ears normal Eyes: General: appearance normal, both eyes and all related structures Alignment and Position: alignment normal Periorbital: periorbital findings normal Eyelids: eyelids normal Pupils: Equal, round and reactive pupils present EOM: EOMs intact bilaterally Neck: Neck: normal visual inspection and full ROM Resp: Effort & Inspection: normal respiratory effort Auscultation: clear to auscultation bilaterally Cardio: Palpation: normal PMI Rate: regular rate Rhythm: regular rhythm Heart sounds: S1 normal heart sound present and S2 normal heart sound present Peripheral pulses: Peripheral pulses 2+ throughout GI: Inspection: normal to inspection Auscultation: normal bowel sounds Rectal Exam: deferred Skin: General skin exam: normal color Lesions: no lesions Rashes: no rashes Trauma: no lacerations or abrasions Wounds: no wounds Hair: normal Nails: normal Neuro: General: oriented to person, oriented to place, oriented to time and patient oriented x3 Cranial nerves: Yes Equal, round and reactive pupils present and Yes Normal hearing present Cognition (Neuro): normal cognition Speech: normal speech Motor exam (neuro): 5/5 motor strength present throughout Sensory Exam: normal sensation Extrem: General: normal to inspection Right upper extremity: normal to inspection and shoulder/upper arm Left upper extremity: normal to inspection and shoulder/upper arm Right lower extremity: normal to inspection Left lower extremity: normal to inspection Psych: Appearance: grossly normal Mental Status: mental status grossly normal Speech and movement: Normal speech and movement present Affect: normal affect Attitude: cooperative Thought process: Normal thought process present Objective Data Vital Signs Vital Signs: Vital Signs - 24 hr 06/11/25 20:15 06/11/25 20:25 06/11/25 20:27 Temperature 97.4 F L Pulse Rate 96 95 Respiratory Rate 24 H Blood Pressure 182/102 H Pulse Oximetry 79 L 96 Oxygen Delivery Room Air Nasal Cannula Oxygen Flow Rate 3 06/11/25 20:27 06/11/25 20:32 06/11/25 23:23 Temperature Pulse Rate 93 95 Respiratory Rate 26 H 21 H Blood Pressure 165/99 H 171/96 H Pulse Oximetry 98 96 100 Oxygen Delivery Nasal Cannula Oxygen Flow Rate 3 06/11/25 23:32 06/12/25 00:30 06/12/25 01:26 Temperature Pulse Rate 92 94 88 Respiratory Rate 21 H 27 H 23 H Blood Pressure 174/98 H 174/101 H Pulse Oximetry 95 98 Oxygen Delivery Oxygen Flow Rate 06/12/25 01:32 06/12/25 02:21 06/12/25 03:23 Temperature 97.7 F Pulse Rate 91 92 93 Respiratory Rate 20 22 H 20 Blood Pressure 164/100 H 160/100 H 152/87 H Pulse Oximetry 100 100 95 Oxygen Delivery Oxygen Flow Rate 06/12/25 03:31 06/12/25 04:00 06/12/25 06:00 Temperature Pulse Rate 87 85 87 Respiratory Rate 26 H Blood Pressure Pulse Oximetry 96 Oxygen Delivery Nasal Cannula Oxygen Flow Rate 5 06/12/25 07:55 06/12/25 08:00 06/12/25 08:00 Temperature 97.5 F L Pulse Rate 94 93 Respiratory Rate 20 Blood Pressure 158/89 H Pulse Oximetry 92 94 Oxygen Delivery Nasal Cannula Oxygen Flow Rate 6 06/12/25 08:24 06/12/25 08:24 06/12/25 08:32 Temperature Pulse Rate 97 99 Respiratory Rate 20 20 Blood Pressure Pulse Oximetry 93 Oxygen Delivery Nasal Cannula Oxygen Flow Rate 4 06/12/25 08:35 06/12/25 08:44 06/12/25 09:35 Temperature Pulse Rate 98 Respiratory Rate Blood Pressure Pulse Oximetry 88 L 94 Oxygen Delivery Nasal Cannula High Flow Nasal Cannula Oxygen Flow Rate 4 6 06/12/25 10:00 06/12/25 12:00 06/12/25 12:00 Temperature Pulse Rate 96 86 Respiratory Rate Blood Pressure Pulse Oximetry 92 Oxygen Delivery Nasal Cannula Oxygen Flow Rate 6 06/12/25 12:49 06/12/25 13:45 06/12/25 13:53 Temperature 97.3 F L Pulse Rate 83 85 82 Respiratory Rate 18 20 20 Blood Pressure 125/68 Pulse Oximetry 92 Oxygen Delivery Oxygen Flow Rate 06/12/25 14:00 06/12/25 16:00 06/12/25 16:00 Temperature Pulse Rate 82 84 Respiratory Rate Blood Pressure Pulse Oximetry 92 Oxygen Delivery Nasal Cannula Oxygen Flow Rate 6 06/12/25 16:31 Temperature 98.5 F Pulse Rate 83 Respiratory Rate 18 Blood Pressure 124/59 L Pulse Oximetry 92 Oxygen Delivery Oxygen Flow Rate Intake/Output Intake/Output: Intake & Output 06/09/25 06/10/25 06/11/25 06/12/25 23:59 23:59 23:59 23:59 Intake Total 550 850 Output Total 300 2250 Balance 250 -1400 Meds/Results Medications: Active Medications Generic Name Dose Route Start Last Admin Trade Name Freq PRN Reason Stop Dose Admin Acetaminophen 650 mg 06/12/25 01:20 Acetaminophen 325 Mg Tablet PO Q4H PRN Mild Pain (1-3) or Fever Albuterol/Ipratropium 3 ml 06/12/25 08:00 06/12/25 13:44 Ipratropium 0.5 Mg/Albuterol Sulfate 2.5 Mg Ampul.Neb 3 Ml INHALATION 3 ml Q6HRT NEIL Administration Amlodipine Besylate 10 mg 06/13/25 09:00 Amlodipine Besylate 10 Mg Tablet PO DAILY NEIL Duloxetine HCl 60 mg 06/12/25 09:00 06/12/25 09:35 Duloxetine Hcl 60 Mg Capsule.Dr BY MOUTH 60 mg DAILY NEIL Administration Fluticasone Propionate 2 spray 06/12/25 09:00 06/12/25 09:37 Fluticasone Propionate 0.05% Na Spr 16 Gm Btl (*Bkc) NASAL 2 spray DAILY NEIL Administration Furosemide 40 mg 06/12/25 09:55 06/12/25 12:58 Furosemide Inj 40 Mg/4 Ml Vial IV PUSH 40 mg BID NEIL Administration Heparin Sodium (Porcine) 6,000 units 06/12/25 10:17 Heparin Sodium 5,000 Units/Ml Vial IV PUSH PRN PRN aPTT less than 55 seconds Heparin Sodium (Porcine) 3,000 units 06/12/25 10:17 Heparin Sodium 5,000 Units/Ml Vial IV PUSH PRN PRN aPTT 55 - 70 seconds Ceftriaxone Sodium 1 gm/ 50 mls @ 100 mls/hr 06/12/25 23:00 Sodium Chloride IVPB Q24H NEIL Azithromycin 500 mg/ Sodium 250 mls @ 250 mls/hr 06/12/25 23:00 Chloride IVPB 06/16/25 23:59 Q24H NEIL Heparin Sodium/Dextrose 25,000 units in 250 mls @ 14 mls/hr 06/12/25 10:20 06/12/25 12:58 Heparin Sodium/D5w 100 Units/Ml IV CONT 1,400 units/hr .[id number] NEIL 14 mls/hr Protocol Administration 1,400 UNITS/HR Metoprolol Succinate 50 mg 06/12/25 09:00 06/12/25 09:35 Metoprolol Succinate Ext Rel 50 Mg Tabcr PO 50 mg DAILY NEIL Administration Ondansetron HCl 4 mg 06/12/25 01:20 Ondansetron Inj 4 Mg/2 Ml Vial IV PUSH Q4H PRN Nausea Sodium Chloride 10 ml 06/12/25 14:00 06/12/25 14:15 Central Line Flush IV PUSH 10 ml Q8HR NEIL Administration Sodium Chloride 10 ml 06/12/25 12:09 Central Line Flush IV PUSH PRN PRN with TPN bag changes Sodium Chloride 20 ml 06/12/25 12:09 Central Line Flush IV PUSH PRN PRN after blood draws Radiology Results: ITS Impressions Chest X-Ray 06/11/25 20:44 IMPRESSION: 1. Perihilar and lower lung predominant indistinctness opacities consistent with mild pulmonary edema. 2. Small left pleural effusion with associated left basilar atelectasis and/or pneumonia. 3. Indeterminate 3 x 2 cm masslike opacity in the right hilar region which could represent an enlarged pulmonary artery in the setting of pulmonary hypertension, hilar or pulmonary mass or right hilar lymphadenopathy. Recommend follow-up chest CT with contrast for further evaluation. Head CT 06/11/25 21:02 IMPRESSION: 1. Normal aging brain. No fracture or acute intracranial process. Cervical Spine CT 06/11/25 21:05 IMPRESSION: 1. Degenerative skeletal changes as detailed above. No acute osseous abnormality. 2. Incompletely visualized at least small left pleural effusion. Chest/Abdomen/Pelvis CTA 06/12/25 07:59 IMPRESSION: 1. Small right and moderate-sized left pleural effusions. 2. No pulmonary embolus. 3. Small volume of perihepatic ascites. 4. Heterogeneous liver enhancement, consistent with passive hepatic congestion. Venous Doppler Study 06/12/25 09:59 IMPRESSION: 1. Left-sided DVT detailed above. Right-sided superficial thrombophlebitis Labs Labs: Laboratory Results - last 24 hr 06/11/25 06/11/25 06/11/25 20:46 21:26 21:39 WBC 8.3 RBC 6.00 H Hgb 17.6 H Hct 57.6 H MCV 96.0 MCH 29.3 MCHC 30.6 L RDW 17.1 H Plt Count 219 MPV 10.4 Immature Gran % (Auto) 0.5 Neut % (Auto) 78.9 H Lymph % (Auto) 12.8 L [place] % (Auto) 7.2 Eos % (Auto) 0.1 Baso % (Auto) 0.5 Lymph # (Auto) 1.07 [place] # (Auto) 0.6 Eos # (Auto) 0.0 Baso # (Auto) 0.0 Abs Immat Gran (auto) 0.04 H Absolute Neuts (auto) 6.6 Absolute Nucleated RBC 0.000 Nucleated RBC % 0.0 PT INR APTT D-Dimer 3.35 H Puncture Site Cancelled ABG pH Cancelled ABG pCO2 Cancelled ABG pO2 Cancelled ABG PO2/FiO2 Ratio Cancelled ABG HCO3 Cancelled ABG O2 Saturation Cancelled ABG O2 Content Cancelled ABG Base Excess Cancelled A-a Gradient Cancelled Oxyhemoglobin Cancelled Total Hemoglobin Cancelled O2 Delivery Device Cancelled O2 Liters/Min Cancelled FiO2 Cancelled Sodium 140 Potassium 4.7 Chloride 98 Carbon Dioxide 31 H Anion Gap 11 BUN 48 H D Creatinine 1.49 H Estim Creat Clear Calc 37 Estimated GFR 34 L Glucose 98 Lactic Acid 3.2 H Calcium 9.7 Magnesium 1.9 Total Bilirubin 2.2 H Direct Bilirubin 0.2 Indirect Bilirubin 0.7 AST 49 H ALT 41 H Alkaline Phosphatase 63 Total Creatine Kinase 94 Troponin I 0.069 H* NT-Pro-B Natriuret Pep 95711 H Total Protein 8.2 Albumin 4.4 Lipase 158 TSH 2.060 Urine Color Dark yellow Urine Appearance Clear Urine pH 5.0 Ur Specific [place] 1.022 Urine Protein 1+ H Urine Glucose (UA) Trace H Urine Ketones Trace H Ur Blood (Man) Non-hemolyzed trace H Urine Nitrate Positive H Urine Bilirubin 1+ H Urine Urobilinogen 2.0 H Add Ur Microanalysis Reviewed Leukocyte Esterase Rfl 1+ H Urine RBC 0-2 Urine WBC 11-20 H Ur Squamous Epith Cells Occasional Urine Bacteria 3+ H Urine Casts 11-20 Hyaline Casts Present Urine Yeast (Budding) Present H Influenza A (RT-PCR) Negative Influenza B (RT-PCR) Negative RSV (RT-PCR) Negative SARS-CoV-2 RNA (RT-PCR) Negative 06/11/25 06/12/25 06/12/25 23:57 07:26 07:34 WBC 8.7 RBC 5.62 H Hgb 16.4 H Hct 54.5 H MCV 97.0 MCH 29.2 MCHC 30.1 L RDW 16.0 H Plt Count 192 MPV 10.6 H Immature Gran % (Auto) 0.3 Neut % (Auto) 72.0 Lymph % (Auto) 18.2 L [place] % (Auto) 9.0 H Eos % (Auto) 0.3 Baso % (Auto) 0.2 Lymph # (Auto) 1.58 [place] # (Auto) 0.8 H Eos # (Auto) 0.0 Baso # (Auto) 0.0 Abs Immat Gran (auto) 0.03 Absolute Neuts (auto) 6.2 Absolute Nucleated RBC 0.020 H Nucleated RBC % 0.2 PT INR APTT D-Dimer Puncture Site Right radial ABG pH 7.355 ABG pCO2 56.7 H ABG pO2 77.4 L ABG PO2/FiO2 Ratio 2.42 ABG HCO3 31.0 H ABG O2 Saturation 94.7 L ABG O2 Content 22.1 H ABG Base Excess 3.6 A-a Gradient 84.4 Oxyhemoglobin 92.4 Total Hemoglobin 17.0 O2 Delivery Device Nasal cannula O2 Liters/Min 4.0 FiO2 32 Sodium 139 Potassium 4.1 Chloride 95 L Carbon Dioxide 35 H Anion Gap 9 BUN 44 H Creatinine 1.45 H Estim Creat Clear Calc 39 Estimated GFR 36 L Glucose 78 Lactic Acid 1.0 Calcium 8.9 Magnesium Total Bilirubin Direct Bilirubin Indirect Bilirubin AST ALT Alkaline Phosphatase Total Creatine Kinase 76 Troponin I 0.070 H* 0.072 H* NT-Pro-B Natriuret Pep Total Protein Albumin Lipase TSH Urine Color Urine Appearance Urine pH Ur Specific [place] Urine Protein Urine Glucose (UA) Urine Ketones Ur Blood (Man) Urine Nitrate Urine Bilirubin Urine Urobilinogen Add Ur Microanalysis Leukocyte Esterase Rfl Urine RBC Urine WBC Ur Squamous Epith Cells Urine Bacteria Urine Casts Hyaline Casts Urine Yeast (Budding) Influenza A (RT-PCR) Influenza B (RT-PCR) RSV (RT-PCR) SARS-CoV-2 RNA (RT-PCR) 06/12/25 12:23 WBC RBC Hgb Hct MCV MCH MCHC RDW Plt Count MPV Immature Gran % (Auto) Neut % (Auto) Lymph % (Auto) [place] % (Auto) Eos % (Auto) Baso % (Auto) Lymph # (Auto) [place] # (Auto) Eos # (Auto) Baso # (Auto) Abs Immat Gran (auto) Absolute Neuts (auto) Absolute Nucleated RBC Nucleated RBC % PT 15.7 H INR 1.3 APTT 26.5 D-Dimer Puncture Site ABG pH ABG pCO2 ABG pO2 ABG PO2/FiO2 Ratio ABG HCO3 ABG O2 Saturation ABG O2 Content ABG Base Excess A-a Gradient Oxyhemoglobin Total Hemoglobin O2 Delivery Device O2 Liters/Min FiO2 Sodium Potassium Chloride Carbon Dioxide Anion Gap BUN Creatinine Estim Creat Clear Calc Estimated GFR Glucose Lactic Acid Calcium Magnesium Total Bilirubin Direct Bilirubin Indirect Bilirubin AST ALT Alkaline Phosphatase Total Creatine Kinase Troponin I NT-Pro-B Natriuret Pep Total Protein Albumin Lipase TSH Urine Color Urine Appearance Urine pH Ur Specific [place] Urine Protein Urine Glucose (UA) Urine Ketones Ur Blood (Man) Urine Nitrate Urine Bilirubin Urine Urobilinogen Add Ur Microanalysis Leukocyte Esterase Rfl Urine RBC Urine WBC Ur Squamous Epith Cells Urine Bacteria Urine Casts Hyaline Casts Urine Yeast (Budding) Influenza A (RT-PCR) Influenza B (RT-PCR) RSV (RT-PCR) SARS-CoV-2 RNA (RT-PCR) Quality VTE Prophylaxis VTE prophylaxis: mechanical ordered
[2025-06-12 19:13] LABS: Partial Thromboplastin Time 125.1 Seconds (22.3-36.8)
[2025-06-12] MEDS: cefTRIAXone 1 GM in SODIUM CHLORIDE 0.9% IV 50 ML 100 ML IVPB (22:09)
[2025-06-13] VITALS (29 sets, daily range): BP systolic 90–126; BP diastolic 43–74; PULSE 58–74; RESP 16–23; TEMP 36.3–36.9; O2SAT 93–100
[2025-06-13 03:48] LABS: Alanine Aminotransferase 26 U/L (6-35); Albumin Level 3.7 g/dL (3.5-5.1); Alkaline Phosphatase 52 U/L (38-126); Aspartate Amino Transferase 36 U/L (14-36); Bilirubin,Total 1.1 mg/dL (0.2-1.3); Blood Urea Nitrogen 42 mg/dL (7-17); Calcium 8.5 mg/dL (8.4-10.2); Carbon Dioxide > 40 mmol/L (22-30); Chloride 91 mmol/L (98-107); Estimated CRCL calculation 37 ml/min; Estimated Glomerular Filt Rate 33; Glucose 118 mg/dL (65-110); Hematocrit 47.5 % (37.0-47.0); Hemoglobin 14.4 g/dL (12.0-15.0); Immature Granulocyte Percent A 0.4 % (0-0.5); Lymphocytes Absolute Auto 1.49 K/mm3 (0.9-3.2); Magnesium 1.5 mg/dL (1.6-2.3); Mean Corpuscular HGB Conc 30.3 g/dl (32-36); Mean Corpuscular Hemoglobin 29.3 pg (26-34); Mean Corpuscular Volume 96.7 fl (80-100); Nucleated Red Blood Cells Absolute Auto 0.000 K/mm3 (0.0-0.012); Nucleated Red Blood Cells Perc 0.0 % (0.0-0.2); Platelet Count Result 177 k/mm3 (150-375); Potassium 3.8 mmol/L (3.4-5.0); Red Blood Count 4.91 M/mm3 (4.2-5.4); Sodium 139 mmol/L (137-145); Total Protein 6.5 g/dL (6.3-8.2); White Blood Count 9.5 K/mm3 (4.5-10.0)
[2025-06-13 04:00] LABS: Partial Thromboplastin Time 125.5 Seconds (22.3-36.8)
[2025-06-13] MEDS: IPRATROPIUM 0.5 MG/ALBUTEROL SULFATE 2.5 MG AMPUL.NEB 3 ML INHALATION ×3 (07:43→20:05)
--- NOTE | 2025-06-13 08:00 | PM.PNCARD ---
Progress Note: A&P Assessment and Plan (1) BIRD (dyspnea on exertion): Code(s): R06.09 - Other forms of dyspnea Status: Acute Assessment and Plan: This could be due to acute on chronic diastolic CHF. (2) Pulmonary vascular congestion: Code(s): R09.89 - Other specified symptoms and signs involving the circulatory and respiratory systems Status: Acute Assessment and Plan: On Lasix 40 mg IV BID. 06/12/25 Echo: EF 50-55%, mod LVH, diastolic function not assessed with tissue doppler, severe RVE, mod RV dysfunction, mod MIKKI, mod TR, RVSP 50 mmHg. Change Lasix from IV to 40 mg PO BID. Start Jardiance 10 mg daily. No further cardiac workup is needed. Will sign off, please call with any questions. (3) Hypertension: Qualifiers: Hypertension type: primary hypertension Qualified Code(s): I10 - Essential (primary) hypertension Code(s): I10 - Essential (primary) hypertension Status: Acute Assessment and Plan: Stable. Stopped Verapamil since on Metoprolol. (4) Elevated troponin: Code(s): R79.89 - Other specified abnormal findings of blood chemistry Status: Acute Assessment and Plan: Slight elevation at 0.072. This could be due to acute on chronic diastolic CHF. (5) NSVT (nonsustained ventricular tachycardia): Code(s): I47.29 - Other ventricular tachycardia Status: Acute Assessment and Plan: Increase Metoprolol Succinate 50 mg BID. Replete Mag with Mag Sulfate 2 gm IV then 400 mg PO daily. (6) Left femoral vein DVT: Code(s): I82.412 - Acute embolism and thrombosis of left femoral vein Status: Acute Assessment and Plan: Due to sedentary state and weakness unable to get up for 2 days. Started on heparin drip. Needs to change to DOAC upon discharge for 3-6 months. Subjective Date/time seen: 06/13/25 08:00 Interval history: Feels weak. No chest pain or sob. Exam Const: General: cooperative, healthy appearing, comfortable and obese Nutritional Appearance: obese Orientation/consciousness: oriented to person, oriented to place and oriented to time Resp: Auscultation: clear to auscultation bilaterally, no crackles, no rales, no rhonchi and no wheezes Cardio: Rate: regular rate Rhythm: regular rhythm Heart sounds: no murmurs Peripheral pulses: dorsalis pedis present Neuro: General: oriented to person, oriented to place and oriented to time Extrem: Right lower extremity: no edema Left lower extremity: no edema Objective Data Vital Signs Vital Signs: Vital Signs - 24 hr 06/12/25 08:24 06/12/25 08:24 06/12/25 08:32 Temperature Pulse Rate 97 99 Respiratory Rate 20 20 Blood Pressure Pulse Oximetry 93 Oxygen Delivery Nasal Cannula Oxygen Flow Rate 4 Fraction of Inspired Oxygen 06/12/25 08:35 06/12/25 08:44 06/12/25 09:35 Temperature Pulse Rate 98 Respiratory Rate Blood Pressure Pulse Oximetry 88 L 94 Oxygen Delivery Nasal Cannula High Flow Nasal Cannula Oxygen Flow Rate 4 6 Fraction of Inspired Oxygen 06/12/25 10:00 06/12/25 12:00 06/12/25 12:00 Temperature Pulse Rate 96 86 Respiratory Rate Blood Pressure Pulse Oximetry 92 Oxygen Delivery Nasal Cannula Oxygen Flow Rate 6 Fraction of Inspired Oxygen 06/12/25 12:49 06/12/25 13:45 06/12/25 13:53 Temperature 97.3 F L Pulse Rate 83 85 82 Respiratory Rate 18 20 20 Blood Pressure 125/68 Pulse Oximetry 92 Oxygen Delivery Oxygen Flow Rate Fraction of Inspired Oxygen 06/12/25 14:00 06/12/25 16:00 06/12/25 16:00 Temperature Pulse Rate 82 84 Respiratory Rate Blood Pressure Pulse Oximetry 92 Oxygen Delivery Nasal Cannula Oxygen Flow Rate 6 Fraction of Inspired Oxygen 06/12/25 16:31 06/12/25 18:00 06/12/25 19:44 Temperature 98.5 F Pulse Rate 83 83 Respiratory Rate 18 Blood Pressure 124/59 L Pulse Oximetry 92 92 Oxygen Delivery High Flow Nasal Cannula Oxygen Flow Rate 6 Fraction of Inspired Oxygen 06/12/25 20:00 06/12/25 20:00 06/12/25 20:11 Temperature 98.1 F Pulse Rate 81 73 83 Respiratory Rate 22 H Blood Pressure 124/71 Pulse Oximetry 92 Oxygen Delivery Oxygen Flow Rate Fraction of Inspired Oxygen 06/12/25 21:15 06/12/25 21:15 06/12/25 22:00 Temperature Pulse Rate 81 81 78 Respiratory Rate 16 16 Blood Pressure Pulse Oximetry 93 Oxygen Delivery High Flow Nasal Cannula Oxygen Flow Rate 6 Fraction of Inspired Oxygen 06/12/25 23:10 06/13/25 00:00 06/13/25 00:00 Temperature 98 F Pulse Rate 67 68 Respiratory Rate 22 H Blood Pressure 120/66 Pulse Oximetry 90 93 Oxygen Delivery High Flow Nasal Cannula Oxygen Flow Rate 6 Fraction of Inspired Oxygen 06/13/25 02:00 06/13/25 04:00 06/13/25 04:00 Temperature 98.5 F Pulse Rate 60 61 Respiratory Rate 20 Blood Pressure 90/74 L Pulse Oximetry 93 95 Oxygen Delivery High Flow Nasal Cannula Oxygen Flow Rate 6 Fraction of Inspired Oxygen 06/13/25 04:00 06/13/25 05:12 06/13/25 06:00 Temperature Pulse Rate 62 60 Respiratory Rate Blood Pressure 121/63 Pulse Oximetry Oxygen Delivery Oxygen Flow Rate Fraction of Inspired Oxygen 06/13/25 07:43 06/13/25 07:57 06/13/25 07:58 Temperature 98.2 F Pulse Rate 74 60 60 Respiratory Rate 18 16 23 H Blood Pressure 114/57 L Pulse Oximetry 95 100 Oxygen Delivery High Flow Therapy with Fa Oxygen Flow Rate 30 Fraction of Inspired Oxygen 50 06/13/25 07:59 Temperature Pulse Rate 68 Respiratory Rate 18 Blood Pressure Pulse Oximetry Oxygen Delivery Oxygen Flow Rate Fraction of Inspired Oxygen Intake/Output Intake/Output: Intake & Output 06/10/25 06/11/25 06/12/25 06/13/25 23:59 23:59 23:59 23:59 Intake Total 550 1528 333 Output Total 300 2651 1200 Balance 144 -6993 -442 Meds/Results Medications: Active Medications Generic Name Dose Route Start Last Admin Trade Name Freq PRN Reason Stop Dose Admin Acetaminophen 650 mg 06/12/25 01:20 Acetaminophen 325 Mg Tablet PO Q4H PRN Mild Pain (1-3) or Fever Albuterol/Ipratropium 3 ml 06/12/25 08:00 06/13/25 07:43 Ipratropium 0.5 Mg/Albuterol Sulfate 2.5 Mg Ampul.Neb 3 Ml INHALATION 3 ml Q6HRT NEIL Administration Duloxetine HCl 60 mg 06/12/25 09:00 06/12/25 09:35 Duloxetine Hcl 60 Mg Capsule.Dr BY MOUTH 60 mg DAILY NEIL Administration Empagliflozin 10 mg 06/13/25 09:00 Empagliflozin 10 Mg Tablet PO DAILY NEIL Fluticasone Propionate 2 spray 06/12/25 09:00 06/12/25 09:37 Fluticasone Propionate 0.05% Na Spr 16 Gm Btl (*Bkc) NASAL 2 spray DAILY NEIL Administration Furosemide 40 mg 06/12/25 09:55 06/12/25 17:19 Furosemide Inj 40 Mg/4 Ml Vial IV PUSH 40 mg BID NEIL Administration Heparin Sodium (Porcine) 6,000 units 06/12/25 10:17 Heparin Sodium 5,000 Units/Ml Vial IV PUSH PRN PRN aPTT less than 55 seconds Heparin Sodium (Porcine) 3,000 units 06/12/25 10:17 Heparin Sodium 5,000 Units/Ml Vial IV PUSH PRN PRN aPTT 55 - 70 seconds Ceftriaxone Sodium 1 gm/ 50 mls @ 100 mls/hr 06/12/25 23:00 06/12/25 22:09 Sodium Chloride IVPB 100 mls/hr Q24H NEIL Administration Heparin Sodium/Dextrose 25,000 units in 250 mls @ 10 mls/hr 06/12/25 10:20 06/13/25 03:00 Heparin Sodium/D5w 100 Units/Ml IV CONT 1,000 units/hr .Q24H NEIL 10 mls/hr Protocol Titration 1,000 UNITS/HR Magnesium Sulfate 2 gm in 50 mls @ 25 mls/hr 06/13/25 06:36 Magnesium Sulf 2 Gm/Water 50ml IVPB 06/13/25 08:35 ONCE ONE Magnesium Oxide 400 mg 06/13/25 09:00 Magnesium Oxide 400 Mg Tablet PO DAILY NEIL Metoprolol Succinate 50 mg 06/12/25 21:00 06/12/25 20:11 Metoprolol Succinate Ext Rel 50 Mg Tabcr PO 50 mg Q12HR NEIL Administration Ondansetron HCl 4 mg 06/12/25 01:20 Ondansetron Inj 4 Mg/2 Ml Vial IV PUSH Q4H PRN Nausea Sodium Chloride 10 ml 06/12/25 14:00 06/12/25 22:32 Central Line Flush IV PUSH 10 ml Q8HR NEIL Administration Sodium Chloride 10 ml 06/12/25 12:09 Central Line Flush IV PUSH PRN PRN with TPN bag changes Sodium Chloride 20 ml 06/12/25 12:09 Central Line Flush IV PUSH PRN PRN after blood draws Radiology Results: ITS Impressions Chest X-Ray 06/11/25 20:44 IMPRESSION: 1. Perihilar and lower lung predominant indistinctness opacities consistent with mild pulmonary edema. 2. Small left pleural effusion with associated left basilar atelectasis and/or pneumonia. 3. Indeterminate 3 x 2 cm masslike opacity in the right hilar region which could represent an enlarged pulmonary artery in the setting of pulmonary hypertension, hilar or pulmonary mass or right hilar lymphadenopathy. Recommend follow-up chest CT with contrast for further evaluation. Head CT 06/11/25 21:02 IMPRESSION: 1. Normal aging brain. No fracture or acute intracranial process. Cervical Spine CT 06/11/25 21:05 IMPRESSION: 1. Degenerative skeletal changes as detailed above. No acute osseous abnormality. 2. Incompletely visualized at least small left pleural effusion. Chest/Abdomen/Pelvis CTA 06/12/25 07:59 IMPRESSION: 1. Small right and moderate-sized left pleural effusions. 2. No pulmonary embolus. 3. Small volume of perihepatic ascites. 4. Heterogeneous liver enhancement, consistent with passive hepatic congestion. Venous Doppler Study 06/12/25 09:59 IMPRESSION: 1. Left-sided DVT detailed above. Right-sided superficial thrombophlebitis Labs Labs: Laboratory Results - last 24 hr 06/11/25 06/12/25 06/12/25 21:39 07:26 12:23 WBC RBC Hgb Hct MCV MCH MCHC RDW Plt Count MPV Immature Gran % (Auto) Neut % (Auto) Lymph % (Auto) [place] % (Auto) Eos % (Auto) Baso % (Auto) Lymph # (Auto) [place] # (Auto) Eos # (Auto) Baso # (Auto) Abs Immat Gran (auto) Absolute Neuts (auto) Absolute Nucleated RBC Nucleated RBC % PT 15.7 H INR 1.3 APTT 26.5 Puncture Site Cancelled ABG pH Cancelled ABG pCO2 Cancelled ABG pO2 Cancelled ABG PO2/FiO2 Ratio Cancelled ABG HCO3 Cancelled ABG O2 Saturation Cancelled ABG O2 Content Cancelled ABG Base Excess Cancelled A-a Gradient Cancelled Oxyhemoglobin Cancelled Total Hemoglobin Cancelled O2 Delivery Device Cancelled O2 Liters/Min Cancelled FiO2 Cancelled Sodium Potassium Chloride Carbon Dioxide Anion Gap BUN Creatinine Estim Creat Clear Calc Estimated GFR Glucose Calcium Magnesium Total Bilirubin AST ALT Alkaline Phosphatase Troponin I 0.072 H* Total Protein Albumin 06/12/25 06/13/25 18:49 01:20 WBC 9.5 RBC 4.91 Hgb 14.4 Hct 47.5 H MCV 96.7 MCH 29.3 MCHC 30.3 L RDW 15.9 H Plt Count 177 MPV 10.4 Immature Gran % (Auto) 0.4 Neut % (Auto) 72.2 Lymph % (Auto) 15.7 L [place] % (Auto) 9.8 H Eos % (Auto) 1.5 Baso % (Auto) 0.4 Lymph # (Auto) 1.49 [place] # (Auto) 0.9 H Eos # (Auto) 0.1 Baso # (Auto) 0.0 Abs Immat Gran (auto) 0.04 H Absolute Neuts (auto) 6.8 H Absolute Nucleated RBC 0.000 Nucleated RBC % 0.0 PT INR APTT 125.1 H 125.5 H Puncture Site ABG pH ABG pCO2 ABG pO2 ABG PO2/FiO2 Ratio ABG HCO3 ABG O2 Saturation ABG O2 Content ABG Base Excess A-a Gradient Oxyhemoglobin Total Hemoglobin O2 Delivery Device O2 Liters/Min FiO2 Sodium 139 Potassium 3.8 Chloride 91 L Carbon Dioxide > 40 H Anion Gap BUN 42 H Creatinine 1.55 H Estim Creat Clear Calc 37 Estimated GFR 33 L Glucose 118 H Calcium 8.5 Magnesium 1.5 L Total Bilirubin 1.1 AST 36 ALT 26 Alkaline Phosphatase 52 Troponin I Total Protein 6.5 Albumin 3.7
[2025-06-13] MEDS: DULoxetine HCL 60 MG CAPSULE.DR BY MOUTH (08:17)
[2025-06-13] MEDS: METOPROLOL SUCCINATE EXT REL 50 MG TABCR PO ×2 (08:17→20:24)
[2025-06-13] MEDS: EMPAGLIFLOZIN 10 MG TABLET PO (08:18)
[2025-06-13] MEDS: MAGNESIUM SULF 2 GM/WATER 50ML 2 GM/50 ML BAG IVPB (08:18)
[2025-06-13] MEDS: HEPARIN SOD/D5W 100 UNITS/ML 25,000 UNITS/250 ML BAG 10 UNITS IV CONT (08:18)
[2025-06-13] MEDS: MAGNESIUM OXIDE 400 MG TABLET PO (08:18)
[2025-06-13] MEDS: FUROSEMIDE INJ 40 MG/4 ML VIAL IV PUSH (08:18)
[2025-06-13] MEDS: CENTRAL LINE FLUSH 10 ML IV PUSH ×3 (08:20→20:31)
[2025-06-13 10:09] LABS: Partial Thromboplastin Time 78.1 Seconds (22.3-36.8)
[2025-06-13] MEDS: acetaZOLAMIDE SODIUM FOR INJ 500 MG VIAL IV PUSH (13:15)
--- NOTE | 2025-06-13 15:00 | P.PNIM_ITS ---
Progress Note: A&P Assessment and Plan (1) Pneumonia: Code(s): J18.9 - Pneumonia, unspecified organism Status: Acute Assessment and Plan: CT chest no pneumonia Stop Antibiotics Pneumonia ruled out (2) Acute heart failure: Code(s): I50.9 - Heart failure, unspecified Status: Acute Assessment and Plan: Presented with fall and SOB CT chest showed bilateral pleural effusion ECHO showed grade I diastolic dysfunction, eF wnl Hold Lasix, Now on Acetazolamide, contineu Jar[facility] cardiology following (3) Hypertension: Qualifiers: Hypertension type: primary hypertension Qualified Code(s): I10 - Essential (primary) hypertension Code(s): I10 - Essential (primary) hypertension Status: Acute Assessment and Plan: Blood pressure is 111/57 -lisinopril currently on hold due to the acute kidney injury -continue with metoprolol -continued for a mental (4) Major depressive disorder, single episode, in partial remission: Code(s): F32.4 - Major depressive disorder, single episode, in partial remission Status: Acute Assessment and Plan: -continue duloxetine (5) LILY (acute kidney injury): Code(s): N17.9 - Acute kidney failure, unspecified Status: Acute Assessment and Plan: likely cardiorenal . -lisinopril is on hold. Cr 1.55 from 1.49 Laisx on hold, now on Diamox (6) UTI (urinary tract infection): Code(s): N39.0 - Urinary tract infection, site not specified Status: Acute Assessment and Plan: -the patient is currently on Rocephin -blood cultures are pending -UA with reflux culture. Ceftriaxone (7) Fall: Code(s): W19.XXXA - Unspecified fall, initial encounter Status: Acute Assessment and Plan: -the patient stated that she was weak and fell and laid on the floor for 2 days. -check daily CK. -post acute care nurse practitioner evaluation greatly be appreciated for possible rehab -PT OT evaluation currently be appreciated. Plan LLE DVT Venous doppler showed left sided DVT ON Heparin infusion Monitor Metabolic alkalosis Holding lasix, now on Acetazolamide Acute hypoxemic resp failure improving from heart failure Continue diuresis Now on 10 liters airvo, titrate DVT prophylaxis on heparin infusion PT/OT for discharge disposition Subjective Date/time seen: 06/13/25 15:00 Interval history: Comfortable at bedside Started Acetazolamide due to Contraction alkalosis Review of Systems Constitutional: Constitutional: Reports as per HPI and Reports no additional constitutional complaints Eyes: Eyes: Reports as per HPI and Reports no additional eye complaints ENT: Reports system reviewed and no additional complaints, except as documented and Reports Normal hearing present Cardiovascular: Cardiovascular: Reports no additional cardiovascular complaints Respiratory: Respiratory: Reports as per HPI and Reports no additional respiratory complaints Gastrointestinal: Gastrointestinal: Reports as per HPI and Reports no additional gastrointestinal complaints Genitourinary: Genitourinary: Reports no additional female genitourinary complaints Musculoskeletal: Musculoskeletal: Reports no additional musculoskeletal complaints Integumentary/Breasts: Skin/Breast: Reports system reviewed and no additional complaints, except as docu Neurologic: Reports system reviewed and no additional complaints, except as documented and Reports Normal hearing present Psychiatric: Psychiatric: Reports no additional psychiatric complaints and Reports as per HPI Hematologic/Lymphatic: Hematologic/Lymphatic: Reports no additional hematologic/lymphatic complaints Allergic/Immunologic: Allergic/Immunologic: Reports no additional allergic/immunologic complaints Exam Const: General: cooperative, healthy appearing, comfortable, no acute distress, well developed, awake, Physically active, average body habitus and well nourished Nutritional Appearance: average body habitus and well nourished Orientation/consciousness: oriented to person, oriented to place, oriented to time and patient oriented x3 HENMT: Head: normal to inspection, No palpable skull fracture present, normocephalic, atraumatic and abrasion Ears: hearing grossly normal bilaterally and external ears normal Eyes: General: appearance normal, both eyes and all related structures Alignment and Position: alignment normal Periorbital: periorbital findings normal Eyelids: eyelids normal Pupils: Equal, round and reactive pupils present EOM: EOMs intact bilaterally Neck: Neck: normal visual inspection and full ROM Resp: Effort & Inspection: normal respiratory effort Auscultation: clear to auscultation bilaterally Cardio: Palpation: normal PMI Rate: regular rate Rhythm: regular rhythm Heart sounds: S1 normal heart sound present and S2 normal heart sound present Peripheral pulses: Peripheral pulses 2+ throughout GI: Inspection: normal to inspection Auscultation: normal bowel sounds Rectal Exam: deferred Skin: General skin exam: normal color Lesions: no lesions Rashes: no rashes Trauma: no lacerations or abrasions Wounds: no wounds Hair: normal Nails: normal Neuro: General: oriented to person, oriented to place, oriented to time and patient oriented x3 Cranial nerves: Yes Equal, round and reactive pupils present and Yes Normal hearing present Cognition (Neuro): normal cognition Speech: normal speech Motor exam (neuro): 5/5 motor strength present throughout Sensory Exam: normal sensation Extrem: General: normal to inspection Right upper extremity: normal to inspection and shoulder/upper arm Left upper extremity: normal to inspection and shoulder/upper arm Right lower extremity: normal to inspection Left lower extremity: normal to inspection Psych: Appearance: grossly normal Mental Status: mental status grossly normal Speech and movement: Normal speech and movement present Affect: normal affect Attitude: cooperative Thought process: Normal thought process present Objective Data Vital Signs Vital Signs: Vital Signs - 24 hr 06/12/25 16:00 06/12/25 16:00 06/12/25 16:31 Temperature 98.5 F Pulse Rate 84 83 Respiratory Rate 18 Blood Pressure 124/59 L Pulse Oximetry 92 92 Oxygen Delivery Nasal Cannula Oxygen Flow Rate 6 Fraction of Inspired Oxygen 06/12/25 18:00 06/12/25 19:44 06/12/25 20:00 Temperature 98.1 F Pulse Rate 83 81 Respiratory Rate 22 H Blood Pressure 124/71 Pulse Oximetry 92 92 Oxygen Delivery High Flow Nasal Cannula Oxygen Flow Rate 6 Fraction of Inspired Oxygen 06/12/25 20:00 06/12/25 20:11 06/12/25 21:15 Temperature Pulse Rate 73 83 81 Respiratory Rate 16 Blood Pressure Pulse Oximetry Oxygen Delivery Oxygen Flow Rate Fraction of Inspired Oxygen 06/12/25 21:15 06/12/25 22:00 06/12/25 23:10 Temperature Pulse Rate 81 78 Respiratory Rate 16 Blood Pressure Pulse Oximetry 93 90 Oxygen Delivery High Flow Nasal Cannula High Flow Nasal Cannula Oxygen Flow Rate 6 6 Fraction of Inspired Oxygen 06/13/25 00:00 06/13/25 00:00 06/13/25 02:00 Temperature 98 F Pulse Rate 67 68 60 Respiratory Rate 22 H Blood Pressure 120/66 Pulse Oximetry 93 Oxygen Delivery Oxygen Flow Rate Fraction of Inspired Oxygen 06/13/25 04:00 06/13/25 04:00 06/13/25 04:00 Temperature 98.5 F Pulse Rate 61 62 Respiratory Rate 20 Blood Pressure 90/74 L Pulse Oximetry 93 95 Oxygen Delivery High Flow Nasal Cannula Oxygen Flow Rate 6 Fraction of Inspired Oxygen 06/13/25 05:12 06/13/25 06:00 06/13/25 07:43 Temperature Pulse Rate 60 74 Respiratory Rate 18 Blood Pressure 121/63 Pulse Oximetry Oxygen Delivery Oxygen Flow Rate Fraction of Inspired Oxygen 06/13/25 07:57 06/13/25 07:58 06/13/25 07:59 Temperature 98.2 F Pulse Rate 60 60 68 Respiratory Rate 16 23 H 18 Blood Pressure 114/57 L Pulse Oximetry 95 100 Oxygen Delivery High Flow Therapy with Fa Oxygen Flow Rate 30 Fraction of Inspired Oxygen 50 06/13/25 08:00 06/13/25 08:00 06/13/25 08:17 Temperature Pulse Rate 67 58 L Respiratory Rate Blood Pressure Pulse Oximetry 96 Oxygen Delivery High Flow Therapy with Fa Oxygen Flow Rate 10 Fraction of Inspired Oxygen 30 06/13/25 10:00 06/13/25 10:12 06/13/25 10:25 Temperature Pulse Rate 74 Respiratory Rate Blood Pressure Pulse Oximetry Oxygen Delivery High Flow Therapy with Fa High Flow Therapy with Fa Oxygen Flow Rate 10 10 Fraction of Inspired Oxygen 06/13/25 12:00 06/13/25 13:26 06/13/25 13:35 Temperature 97.7 F Pulse Rate 62 70 70 Respiratory Rate 20 18 16 Blood Pressure 111/57 L Pulse Oximetry 96 95 Oxygen Delivery High Flow Therapy with Na Oxygen Flow Rate 20 Fraction of Inspired Oxygen 45 06/13/25 13:37 Temperature Pulse Rate 72 Respiratory Rate 18 Blood Pressure Pulse Oximetry Oxygen Delivery Oxygen Flow Rate Fraction of Inspired Oxygen Intake/Output Intake/Output: Intake & Output 06/10/25 06/11/25 06/12/25 06/13/25 23:59 23:59 23:59 23:59 Intake Total 550 1528 885.7 Output Total 300 2651 1200 Balance 250 -1123 -314.3 Meds/Results Medications: Active Medications Generic Name Dose Route Start Last Admin Trade Name Freq PRN Reason Stop Dose Admin Acetaminophen 650 mg 06/12/25 01:20 Acetaminophen 325 Mg Tablet PO Q4H PRN Mild Pain (1-3) or Fever Acetazolamide Sodium 500 mg 06/13/25 09:45 06/13/25 13:15 Acetazolamide Sodium For Inj 500 Mg Vial IV PUSH 500 mg DAILY NEIL Administration Albuterol/Ipratropium 3 ml 06/12/25 08:00 06/13/25 13:26 Ipratropium 0.5 Mg/Albuterol Sulfate 2.5 Mg Ampul.Neb 3 Ml INHALATION 3 ml Q6HRT NEIL Administration Duloxetine HCl 60 mg 06/12/25 09:00 06/13/25 08:17 Duloxetine Hcl 60 Mg Capsule.Dr BY MOUTH 60 mg DAILY NEIL Administration Empagliflozin 10 mg 06/13/25 09:00 06/13/25 08:18 Empagliflozin 10 Mg Tablet PO 10 mg DAILY NEIL Administration Fluticasone Propionate 2 spray 06/12/25 09:00 06/13/25 08:20 Fluticasone Propionate 0.05% Na Spr 16 Gm Btl (*Bkc) NASAL Not Given DAILY NEIL Furosemide 40 mg 06/12/25 09:55 06/13/25 08:18 Furosemide Inj 40 Mg/4 Ml Vial IV PUSH 40 mg On Hold: 06/13/25 09:41 BID NEIL Administration Heparin Sodium (Porcine) 6,000 units 06/12/25 10:17 Heparin Sodium 5,000 Units/Ml Vial IV PUSH PRN PRN aPTT less than 55 seconds Heparin Sodium (Porcine) 3,000 units 06/12/25 10:17 Heparin Sodium 5,000 Units/Ml Vial IV PUSH PRN PRN aPTT 55 - 70 seconds Ceftriaxone Sodium 1 gm/ 50 mls @ 100 mls/hr 06/12/25 23:00 06/12/25 22:09 Sodium Chloride IVPB 100 mls/hr Q24H NEIL Administration Heparin Sodium/Dextrose 25,000 units in 250 mls @ 10 mls/hr 06/12/25 10:20 06/13/25 10:16 Heparin Sodium/D5w 100 Units/Ml IV CONT 1,000 units/hr .Q24H NEIL 10 mls/hr Protocol Titration 1,000 UNITS/HR Magnesium Oxide 400 mg 06/13/25 09:00 06/13/25 08:18 Magnesium Oxide 400 Mg Tablet PO 400 mg DAILY NEIL Administration Metoprolol Succinate 50 mg 06/12/25 21:00 06/13/25 08:17 Metoprolol Succinate Ext Rel 50 Mg Tabcr PO 50 mg Q12HR NEIL Administration Ondansetron HCl 4 mg 06/12/25 01:20 Ondansetron Inj 4 Mg/2 Ml Vial IV PUSH Q4H PRN Nausea Sodium Chloride 10 ml 06/12/25 14:00 06/13/25 08:20 Central Line Flush IV PUSH 10 ml Q8HR NEIL Administration Sodium Chloride 10 ml 06/12/25 12:09 Central Line Flush IV PUSH PRN PRN with TPN bag changes Sodium Chloride 20 ml 06/12/25 12:09 Central Line Flush IV PUSH PRN PRN after blood draws Radiology Results: ITS Impressions Chest X-Ray 06/11/25 20:44 IMPRESSION: 1. Perihilar and lower lung predominant indistinctness opacities consistent with mild pulmonary edema. 2. Small left pleural effusion with associated left basilar atelectasis and/or pneumonia. 3. Indeterminate 3 x 2 cm masslike opacity in the right hilar region which could represent an enlarged pulmonary artery in the setting of pulmonary hypertension, hilar or pulmonary mass or right hilar lymphadenopathy. Recommend follow-up chest CT with contrast for further evaluation. Head CT 06/11/25 21:02 IMPRESSION: 1. Normal aging brain. No fracture or acute intracranial process. Cervical Spine CT 06/11/25 21:05 IMPRESSION: 1. Degenerative skeletal changes as detailed above. No acute osseous abnormality. 2. Incompletely visualized at least small left pleural effusion. Chest/Abdomen/Pelvis CTA 06/12/25 07:59 IMPRESSION: 1. Small right and moderate-sized left pleural effusions. 2. No pulmonary embolus. 3. Small volume of perihepatic ascites. 4. Heterogeneous liver enhancement, consistent with passive hepatic congestion. Venous Doppler Study 06/12/25 09:59 IMPRESSION: 1. Left-sided DVT detailed above. Right-sided superficial thrombophlebitis Labs Labs: Laboratory Results - last 24 hr 06/12/25 06/13/25 06/13/25 18:49 01:20 09:40 WBC 9.5 RBC 4.91 Hgb 14.4 Hct 47.5 H MCV 96.7 MCH 29.3 MCHC 30.3 L RDW 15.9 H Plt Count 177 MPV 10.4 Immature Gran % (Auto) 0.4 Neut % (Auto) 72.2 Lymph % (Auto) 15.7 L [place] % (Auto) 9.8 H Eos % (Auto) 1.5 Baso % (Auto) 0.4 Lymph # (Auto) 1.49 [place] # (Auto) 0.9 H Eos # (Auto) 0.1 Baso # (Auto) 0.0 Abs Immat Gran (auto) 0.04 H Absolute Neuts (auto) 6.8 H Absolute Nucleated RBC 0.000 Nucleated RBC % 0.0 APTT 125.1 H 125.5 H 78.1 H Sodium 139 Potassium 3.8 Chloride 91 L Carbon Dioxide > 40 H Anion Gap BUN 42 H Creatinine 1.55 H Estim Creat Clear Calc 37 Estimated GFR 33 L Glucose 118 H Calcium 8.5 Magnesium 1.5 L Total Bilirubin 1.1 AST 36 ALT 26 Alkaline Phosphatase 52 Total Protein 6.5 Albumin 3.7 Quality VTE Prophylaxis VTE prophylaxis: mechanical ordered
[2025-06-13] MEDS: PHARMACIST COMMUNICATION ORDER 1 EACH XX (17:44)
[2025-06-13] MEDS: cefTRIAXone 1 GM in SODIUM CHLORIDE 0.9% IV 50 ML 100 ML IVPB (23:32)
[2025-06-14] VITALS (35 sets, daily range): BP systolic 112–133; BP diastolic 53–91; PULSE 63–89; RESP 14–20; TEMP 36.4–36.9; O2SAT 93–98
[2025-06-14] MEDS: CENTRAL LINE FLUSH 20 ML IV PUSH ×2 (01:52→20:41)
[2025-06-14] MEDS: IPRATROPIUM 0.5 MG/ALBUTEROL SULFATE 2.5 MG AMPUL.NEB 3 ML INHALATION ×4 (01:55→20:15)
[2025-06-14 02:07] LABS: Hematocrit 45.9 % (37.0-47.0); Hemoglobin 13.7 g/dL (12.0-15.0); Immature Granulocyte Percent A 0.3 % (0-0.5); Lymphocytes Absolute Auto 1.46 K/mm3 (0.9-3.2); Mean Corpuscular HGB Conc 29.8 g/dl (32-36); Mean Corpuscular Hemoglobin 29.4 pg (26-34); Mean Corpuscular Volume 98.5 fl (80-100); Nucleated Red Blood Cells Absolute Auto 0.000 K/mm3 (0.0-0.012); Nucleated Red Blood Cells Perc 0.0 % (0.0-0.2); Platelet Count Result 153 k/mm3 (150-375); Red Blood Count 4.66 M/mm3 (4.2-5.4); White Blood Count 7.6 K/mm3 (4.5-10.0)
[2025-06-14 02:23] LABS: Partial Thromboplastin Time 36.2 Seconds (22.3-36.8)
[2025-06-14 02:26] LABS: Alanine Aminotransferase 22 U/L (6-35); Albumin Level 3.4 g/dL (3.5-5.1); Alkaline Phosphatase 44 U/L (38-126); Aspartate Amino Transferase 28 U/L (14-36); Bilirubin,Total 0.7 mg/dL (0.2-1.3); Blood Urea Nitrogen 38 mg/dL (7-17); Calcium 8.4 mg/dL (8.4-10.2); Chloride 89 mmol/L (98-107); Estimated CRCL calculation 38 ml/min; Estimated Glomerular Filt Rate 35; Glucose 104 mg/dL (65-110); Magnesium 1.7 mg/dL (1.6-2.3); Potassium 3.7 mmol/L (3.4-5.0); Sodium 138 mmol/L (137-145); Total Protein 5.9 g/dL (6.3-8.2)
[2025-06-14 02:52] LABS: Carbon Dioxide > 40 mmol/L (22-30)
[2025-06-14] MEDS: CENTRAL LINE FLUSH 10 ML IV PUSH ×3 (06:00→20:41)
[2025-06-14 08:42] LABS: Alveolar/Arterial O2 Gradient 249.9 mmHg; Fractional Inspired Oxygen 60 %; HCO3 ABG 43.7 mEq/l (22.0-26.0); Oxygen Content ABG 19.6 %vol (16.0-22.0); Oxygen Saturation ABG 93.9 % (95.0-100.0); PO2 ABG 79.5 mmHg (80.0-100.0); PO2 FiO2 Ratio Arterial Blood 1.33 %
[2025-06-14 08:48] LABS: Modified Allen's Test Pass; PCO2 ABG 89.5 mmHg (35.0-45.0); Site Drawn LEFT RADIAL
[2025-06-14 08:49] LABS: Liters per Minute 30.0 LPM
[2025-06-14] MEDS: DULoxetine HCL 60 MG CAPSULE.DR BY MOUTH (08:56)
[2025-06-14] MEDS: METOPROLOL SUCCINATE EXT REL 50 MG TABCR PO ×2 (08:57→20:48)
[2025-06-14] MEDS: MAGNESIUM OXIDE 400 MG TABLET PO (08:59)
[2025-06-14] MEDS: EMPAGLIFLOZIN 10 MG TABLET PO (08:59)
[2025-06-14] MEDS: WATER, STERILE FOR INJECTION 10 ML VIAL XX (09:08)
[2025-06-14] MEDS: acetaZOLAMIDE SODIUM FOR INJ 500 MG VIAL IV PUSH (09:08)
--- NOTE | 2025-06-14 09:35 | PCPTNOTE ---
Attempted to see pt, early AM pt was receiving chest x-ray bedside. 2nd attempt spoke with nursing first (RN, Bella), and she stated pt is not medically safe for therapy today, due to breathing issues and overall declining quickly.
--- NOTE | 2025-06-14 12:21 | P.PNIM_ITS ---
Progress Note: A&P Assessment and Plan (1) Pneumonia: Code(s): J18.9 - Pneumonia, unspecified organism Status: Acute Assessment and Plan: CT chest no pneumonia Stop Antibiotics Pneumonia ruled out (2) Acute heart failure: Code(s): I50.9 - Heart failure, unspecified Status: Acute Assessment and Plan: Right heart veronique fernando Presented with fall and SOB CT chest showed bilateral pleural effusion ECHO showed normal LVF, with right heart failure and pulm hypertension Hold Lasix, Now on Acetazolamide, contineu Jardiance cardiology following (3) Hypertension: Qualifiers: Hypertension type: primary hypertension Qualified Code(s): I10 - Essential (primary) hypertension Code(s): I10 - Essential (primary) hypertension Status: Acute Assessment and Plan: Blood pressure is 111/57 -lisinopril currently on hold due to the acute kidney injury -continue with metoprolol -continued for a mental (4) Major depressive disorder, single episode, in partial remission: Code(s): F32.4 - Major depressive disorder, single episode, in partial remission Status: Acute Assessment and Plan: -continue duloxetine (5) LILY (acute kidney injury): Code(s): N17.9 - Acute kidney failure, unspecified Status: Acute Assessment and Plan: likely cardiorenal . -lisinopril is on hold. Cr 1.47 from 1.49 Laisx on hold, now on Diamox (6) UTI (urinary tract infection): Code(s): N39.0 - Urinary tract infection, site not specified Status: Acute Assessment and Plan: -the patient is currently on Rocephin -blood cultures are pending -Urine culture positive for GNB Ceftriaxone (7) Fall: Code(s): W19.XXXA - Unspecified fall, initial encounter Status: Acute Assessment and Plan: -the patient stated that she was weak and fell and laid on the floor for 2 days. -check daily CK. -day care aide evaluation greatly be appreciated for possible rehab -PT OT evaluation currently be appreciated. Plan LLE DVT Venous doppler showed left sided DVT ON Heparin infusion Monitor Metabolic alkalosis Holding lasix, now on Acetazolamide Acute hypoxemic resp failure Worsening OHS vs Right heart failure/Pulm hypertension vs Pneumonia CXR this morning showed RLL consolidation ECHo reviewed Abg showed CO2 retention Rocephin, doxycycline and Flagyl Continue diuresis Discussed with Pulmonology and he recommended AVAPS patient started on AVAPS monitor closely Pulm consulted Now on 10 liters airvo, titrate DVT prophylaxis on heparin infusion Subjective Date/time seen: 06/14/25 12:21 Interval history: Comfortable at bedside ECHO actually showed normal LVF, but with severe right heart failure Review of Systems Constitutional: Constitutional: Reports as per HPI and Reports no additional constitutional complaints Eyes: Eyes: Reports as per HPI and Reports no additional eye complaints ENT: Reports system reviewed and no additional complaints, except as documented and Reports Normal hearing present Cardiovascular: Cardiovascular: Reports no additional cardiovascular complaints Respiratory: Respiratory: Reports as per HPI and Reports no additional respiratory complaints Gastrointestinal: Gastrointestinal: Reports as per HPI and Reports no additional gastrointestinal complaints Genitourinary: Genitourinary: Reports no additional female genitourinary complaints Musculoskeletal: Musculoskeletal: Reports no additional musculoskeletal complaints Integumentary/Breasts: Skin/Breast: Reports system reviewed and no additional complaints, except as docu Neurologic: Reports system reviewed and no additional complaints, except as documented and Reports Normal hearing present Psychiatric: Psychiatric: Reports no additional psychiatric complaints and Reports as per HPI Hematologic/Lymphatic: Hematologic/Lymphatic: Reports no additional hematologic/lymphatic complaints Allergic/Immunologic: Allergic/Immunologic: Reports no additional allergic/immunologic complaints Exam Const: General: cooperative, healthy appearing, comfortable, no acute distress, well developed, awake, Physically active, average body habitus and well nourished Nutritional Appearance: average body habitus and well nourished Orientation/consciousness: oriented to person, oriented to place, oriented to time and patient oriented x3 HENMT: Head: normal to inspection, No palpable skull fracture present, normocephalic, atraumatic and abrasion Ears: hearing grossly normal bilaterally and external ears normal Eyes: General: appearance normal, both eyes and all related structures Alignment and Position: alignment normal Periorbital: periorbital findings normal Eyelids: eyelids normal Pupils: Equal, round and reactive pupils present EOM: EOMs intact bilaterally Neck: Neck: normal visual inspection and full ROM Resp: Effort & Inspection: normal respiratory effort Auscultation: clear to auscultation bilaterally Cardio: Palpation: normal PMI Rate: regular rate Rhythm: regular rhythm Heart sounds: S1 normal heart sound present and S2 normal heart sound present Peripheral pulses: Peripheral pulses 2+ throughout GI: Inspection: normal to inspection Auscultation: normal bowel sounds Rectal Exam: deferred Skin: General skin exam: normal color Lesions: no lesions Rashes: no rashes Trauma: no lacerations or abrasions Wounds: no wounds Hair: normal Nails: normal Neuro: General: oriented to person, oriented to place, oriented to time and patient oriented x3 Cranial nerves: Yes Equal, round and reactive pupils present and Yes Normal hearing present Cognition (Neuro): normal cognition Speech: normal speech Motor exam (neuro): 5/5 motor strength present throughout Sensory Exam: normal sensation Extrem: General: normal to inspection Right upper extremity: normal to inspection and shoulder/upper arm Left upper extremity: normal to inspection and shoulder/upper arm Right lower extremity: normal to inspection Left lower extremity: normal to inspection Psych: Appearance: grossly normal Mental Status: mental status grossly normal Speech and movement: Normal speech and movement present Affect: no rmal affect Attitude: cooperative Thought process: Normal thought process present Objective Data Vital Signs Vital Signs: Vital Signs - 24 hr 06/13/25 13:26 06/13/25 13:35 06/13/25 13:37 Temperature Pulse Rate 70 70 72 Respiratory Rate 18 16 18 Blood Pressure Pulse Oximetry 95 Oxygen Delivery High Flow Therapy with Na Oxygen Flow Rate 20 Fraction of Inspired Oxygen 45 06/13/25 14:00 06/13/25 16:00 06/13/25 16:00 Temperature 97.4 F L Pulse Rate 68 74 Respiratory Rate 20 Blood Pressure 116/43 L Pulse Oximetry 98 99 Oxygen Delivery High Flow Therapy with Fa Oxygen Flow Rate 30 Fraction of Inspired Oxygen 60 06/13/25 16:00 06/13/25 18:00 06/13/25 19:38 Temperature Pulse Rate 74 71 72 Respiratory Rate 19 Blood Pressure Pulse Oximetry 96 Oxygen Delivery High Flow Therapy with Na Oxygen Flow Rate 30 Fraction of Inspired Oxygen 60 06/13/25 19:51 06/13/25 20:00 06/13/25 20:05 Temperature 97.4 F L Pulse Rate 72 71 71 Respiratory Rate 19 18 Blood Pressure 126/66 Pulse Oximetry 96 Oxygen Delivery Oxygen Flow Rate Fraction of Inspired Oxygen 06/13/25 20:08 06/13/25 20:15 06/13/25 20:24 Temperature Pulse Rate 73 72 Respiratory Rate 18 Blood Pressure Pulse Oximetry 95 Oxygen Delivery High Flow Therapy with Na Oxygen Flow Rate 30 Fraction of Inspired Oxygen 60 06/13/25 22:00 06/13/25 23:38 06/13/25 23:39 Temperature 97.8 F Pulse Rate 71 70 70 Respiratory Rate 16 16 Blood Pressure 116/53 L Pulse Oximetry 94 94 Oxygen Delivery High Flow Therapy with Na Oxygen Flow Rate 30 Fraction of Inspired Oxygen 61 06/14/25 00:00 06/14/25 01:55 06/14/25 02:00 Temperature Pulse Rate 72 70 70 Respiratory Rate 18 Blood Pressure Pulse Oximetry Oxygen Delivery Oxygen Flow Rate Fraction of Inspired Oxygen 06/14/25 02:05 06/14/25 04:00 06/14/25 04:00 Temperature 98.2 F Pulse Rate 71 70 71 Respiratory Rate 18 20 Blood Pressure 116/72 Pulse Oximetry 95 Oxygen Delivery Oxygen Flow Rate Fraction of Inspired Oxygen 06/14/25 04:38 06/14/25 06:00 06/14/25 08:00 Temperature Pulse Rate 70 70 67 Respiratory Rate 20 Blood Pressure Pulse Oximetry 95 93 Oxygen Delivery High Flow Therapy with Na High Flow Therapy with Na Oxygen Flow Rate 30 30 Fraction of Inspired Oxygen 61 60 06/14/25 08:07 06/14/25 08:08 06/14/25 08:11 Temperature Pulse Rate 71 75 Respiratory Rate 18 18 Blood Pressure Pulse Oximetry 96 Oxygen Delivery High Flow Therapy with Na Oxygen Flow Rate 30 Fraction of Inspired Oxygen 60 06/14/25 08:12 06/14/25 08:57 06/14/25 09:15 Temperature 97.7 F Pulse Rate 68 70 89 Respiratory Rate 14 18 Blood Pressure 115/53 L Pulse Oximetry 98 98 Oxygen Delivery BiPAP Oxygen Flow Rate Fraction of Inspired Oxygen 06/14/25 11:45 Temperature 97.6 F Pulse Rate 71 Respiratory Rate 20 Blood Pressure 122/70 Pulse Oximetry 98 Oxygen Delivery Oxygen Flow Rate Fraction of Inspired Oxygen Intake/Output Intake/Output: Intake & Output 06/11/25 06/12/25 06/13/25 06/14/25 23:59 23:59 23:59 23:59 Intake Total 550 1578 1228.5 390 Output Total 300 2651 1750 400 Balance 250 -1073 -521.5 -10 Meds/Results Medications: Active Medications Generic Name Dose Route Start Last Admin Trade Name Freq PRN Reason Stop Dose Admin Acetaminophen 650 mg 06/12/25 01:20 Acetaminophen 325 Mg Tablet PO Q4H PRN Mild Pain (1-3) or Fever Acetazolamide Sodium 500 mg 06/13/25 09:45 06/14/25 09:08 Acetazolamide Sodium For Inj 500 Mg Vial IV PUSH 500 mg DAILY NEIL Administration Albuterol/Ipratropium 3 ml 06/12/25 08:00 06/14/25 08:06 Ipratropium 0.5 Mg/Albuterol Sulfate 2.5 Mg Ampul.Neb 3 Ml INHALATION 3 ml Q6HRT NEIL Administration Duloxetine HCl 60 mg 06/12/25 09:00 06/14/25 08:56 Duloxetine Hcl 60 Mg Capsule.Dr BY MOUTH 60 mg DAILY NEIL Administration Empagliflozin 10 mg 06/13/25 09:00 06/14/25 08:59 Empagliflozin 10 Mg Tablet PO 10 mg DAILY NEIL Administration Fluticasone Propionate 2 spray 06/12/25 09:00 06/14/25 09:08 Fluticasone Propionate 0.05% Na Spr 16 Gm Btl (*Bkc) NASAL Not Given DAILY [facility] Furosemide 40 mg 06/12/25 09:55 06/13/25 08:18 Furosemide Inj 40 Mg/4 Ml Vial IV PUSH 40 mg On Hold: 06/13/25 09:41 BID NEIL Administration Heparin Sodium (Porcine) 6,000 units 06/12/25 10:17 06/14/25 03:30 Heparin Sodium 5,000 Units/Ml Vial IV PUSH 3,000 units PRN PRN Administration aPTT less than 55 seconds Heparin Sodium (Porcine) 3,000 units 06/12/25 10:17 Heparin Sodium 5,000 Units/Ml Vial IV PUSH PRN PRN aPTT 55 - 70 seconds Ceftriaxone Sodium 1 gm/ 50 mls @ 100 mls/hr 06/12/25 23:00 06/14/25 00:02 Sodium Chloride IVPB Infused Q24H NEIL Infusion Heparin Sodium/Dextrose 25,000 units in 250 mls @ 8 mls/hr 06/12/25 10:20 08:12 Heparin Sodium/D5w 100 Units/Ml IV CONT Not Given .Q24H [facility] Protocol 800 UNITS/HR Doxycycline Hyclate 100 mg/ 100 mls @ 100 mls/hr 06/14/25 11:50 Sodium Chloride IVPB Q12HR [facility] Metronidazole 500 mg in 100 mls @ 100 mls/hr 06/14/25 12:00 Flagyl 500 Mg/Iso Soln 100 Ml IVPB Q8H NEIL Magnesium Oxide 400 mg 06/13/25 09:00 06/14/25 08:59 Magnesium Oxide 400 Mg Tablet PO 400 mg DAILY NEIL Administration Metoprolol Succinate 50 mg 06/12/25 21:00 06/14/25 08:57 Metoprolol Succinate Ext Rel 50 Mg Tabcr PO 50 mg Q12HR NEIL Administration Ondansetron HCl 4 mg 06/12/25 01:20 Ondansetron Inj 4 Mg/2 Ml Vial IV PUSH Q4H PRN Nausea Sodium Chloride 10 ml 06/12/25 14:00 06/14/25 06:00 Central Line Flush IV PUSH 10 ml Q8HR NEIL Administration Sodium Chloride 10 ml 06/12/25 12:09 Central Line Flush IV PUSH PRN PRN with TPN bag changes Sodium Chloride 20 ml 06/12/25 12:09 06/14/25 01:52 Central Line Flush IV PUSH 20 ml PRN PRN Administration after blood draws Radiology Results: ITS Impressions Head CT 06/11/25 21:02 IMPRESSION: 1. Normal aging brain. No fracture or acute intracranial process. Cervical Spine CT 06/11/25 21:05 IMPRESSION: 1. Degenerative skeletal changes as detailed above. No acute osseous abnormality. 2. Incompletely visualized at least small left pleural effusion. Chest/Abdomen/Pelvis CTA 06/12/25 07:59 IMPRESSION: 1. Small right and moderate-sized left pleural effusions. 2. No pulmonary embolus. 3. Small volume of perihepatic ascites. 4. Heterogeneous liver enhancement, consistent with passive hepatic congestion. Venous Doppler Study 06/12/25 09:59 IMPRESSION: 1. Left-sided DVT detailed above. Right-sided superficial thrombophlebitis Chest X-Ray 06/14/25 09:14 IMPRESSION: 1. Developing edema and/or airspace disease right lung. 2. Persistent left pleural effusion with complete lower lobe atelectasis and airspace consolidation. Labs Labs: Laboratory Results - last 24 hr 06/14/25 06/14/25 01:59 08:33 WBC 7.6 RBC 4.66 Hgb 13.7 Hct 45.9 MCV 98.5 MCH 29.4 MCHC 29.8 L RDW 15.3 H Plt Count 153 MPV 10.8 H Immature Gran % (Auto) 0.3 Neut % (Auto) 66.3 Lymph % (Auto) 19.2 Ashley % (Auto) 11.1 H Eos % (Auto) 2.6 Baso % (Auto) 0.5 Lymph # (Auto) 1.46 Ashley # (Auto) 0.8 H Eos # (Auto) 0.2 Baso # (Auto) 0.0 Abs Immat Gran (auto) 0.02 Absolute Neuts (auto) 5.0 Absolute Nucleated RBC 0.000 Nucleated RBC % 0.0 APTT 36.2 Puncture Site Left radial ABG pH 7.307 L ABG pCO2 89.5 H* ABG pO2 79.5 L ABG PO2/FiO2 Ratio 1.33 ABG HCO3 43.7 H ABG O2 Saturation 93.9 L ABG O2 Content 19.6 ABG Base Excess 12.9 A-a Gradient 249.9 Oxyhemoglobin 93.4 Total Hemoglobin 14.9 O2 Delivery Device High flow nasal kassi O2 Liters/Min 30.0 FiO2 60 Sodium 138 Potassium 3.7 Chloride 89 L Carbon Dioxide > 40 H Anion Gap BUN 38 H Creatinine 1.47 H Estim Creat Clear Calc 38 Estimated GFR 35 L Glucose 104 Calcium 8.4 Magnesium 1.7 Total Bilirubin 0.7 AST 28 ALT 22 Alkaline Phosphatase 44 Total Protein 5.9 L Albumin 3.4 L Quality VTE Prophylaxis VTE prophylaxis: mechanical ordered
[2025-06-14 12:52] LABS: Partial Thromboplastin Time 62.9 Seconds (22.3-36.8)
[2025-06-14] MEDS: metroNIDAZOLE 500 MG/ISO 100ML 500 MG/100 ML BAG 100 MG IVPB ×2 (13:17→20:45)
[2025-06-14] MEDS: DOXYCYCLINE IV 100 MG in SODIUM CHLORIDE 0.9% IV 100 ML IVPB ×2 (13:18→20:51)
--- NOTE | 2025-06-14 16:25 | PC.NURSE ---
On 06/14/25, the student, Cindy Durand, provided care and completed [employer] documentation on this patient. I have reviewed the student's documentation and agree with the findings.
[2025-06-14 21:18] LABS: Partial Thromboplastin Time 109.4 Seconds (22.3-36.8)
[2025-06-14] MEDS: HEPARIN SOD/D5W 100 UNITS/ML 25,000 UNITS/250 ML BAG 8 UNITS IV CONT (22:20)
[2025-06-14] MEDS: cefTRIAXone 1 GM in SODIUM CHLORIDE 0.9% IV 50 ML 100 ML IVPB (22:21)
[2025-06-15] VITALS (34 sets, daily range): BP systolic 118–138; BP diastolic 60–71; PULSE 62–93; RESP 16–23; TEMP 36.2–36.9; O2SAT 91–99
[2025-06-15] MEDS: IPRATROPIUM 0.5 MG/ALBUTEROL SULFATE 2.5 MG AMPUL.NEB 3 ML INHALATION ×4 (02:07→20:30)
[2025-06-15] MEDS: CENTRAL LINE FLUSH 20 ML IV PUSH (03:27)
[2025-06-15] MEDS: metroNIDAZOLE 500 MG/ISO 100ML 500 MG/100 ML BAG 100 MG IVPB ×3 (03:39→21:05)
[2025-06-15 03:51] LABS: Hematocrit 44.4 % (37.0-47.0); Hemoglobin 13.2 g/dL (12.0-15.0); Immature Granulocyte Percent A 0.4 % (0-0.5); Lymphocytes Absolute Auto 1.69 K/mm3 (0.9-3.2); Mean Corpuscular HGB Conc 29.7 g/dl (32-36); Mean Corpuscular Hemoglobin 29.3 pg (26-34); Mean Corpuscular Volume 98.7 fl (80-100); Nucleated Red Blood Cells Absolute Auto 0.000 K/mm3 (0.0-0.012); Nucleated Red Blood Cells Perc 0.0 % (0.0-0.2); Platelet Count Result 147 k/mm3 (150-375); Red Blood Count 4.50 M/mm3 (4.2-5.4); White Blood Count 7.6 K/mm3 (4.5-10.0)
[2025-06-15 04:03] LABS: Partial Thromboplastin Time 71.5 Seconds (22.3-36.8)
[2025-06-15 04:28] LABS: Free T4 Free Thyroxine 0.92 ng/dL (0.78-2.19)
[2025-06-15 04:30] LABS: Procalcitonin 0.1 ng/mL
[2025-06-15 04:42] LABS: Alanine Aminotransferase 20 U/L (6-35); Albumin Level 3.2 g/dL (3.5-5.1); Alkaline Phosphatase 50 U/L (38-126); Anion Gap 7 mmol/L (4-12); Aspartate Amino Transferase 23 U/L (14-36); Bilirubin,Total 0.5 mg/dL (0.2-1.3); Blood Urea Nitrogen 28 mg/dL (7-17); Calcium 8.6 mg/dL (8.4-10.2); Carbon Dioxide 39 mmol/L (22-30); Chloride 92 mmol/L (98-107); Estimated CRCL calculation 51 ml/min; Estimated Glomerular Filt Rate 49; Glucose 107 mg/dL (65-110); Magnesium 1.9 mg/dL (1.6-2.3); Potassium 3.7 mmol/L (3.4-5.0); Sodium 138 mmol/L (137-145); Total Protein 5.8 g/dL (6.3-8.2)
[2025-06-15] MEDS: CENTRAL LINE FLUSH 10 ML IV PUSH ×2 (05:27→21:06)
[2025-06-15 05:53] LABS: Alveolar/Arterial O2 Gradient 184.8 mmHg; Fractional Inspired Oxygen 50 %; HCO3 ABG 39.6 mEq/l (22.0-26.0); Oxygen Content ABG 19.2 %vol (16.0-22.0); Oxygen Saturation ABG 95.7 % (95.0-100.0); PO2 ABG 87.4 mmHg (80.0-100.0); PO2 FiO2 Ratio Arterial Blood 1.75 %
[2025-06-15 05:59] LABS: Modified Allen's Test Pass; PCO2 ABG 74.9 mmHg (35.0-45.0); Site Drawn LEFT RADIAL
[2025-06-15 09:36] LABS: Partial Thromboplastin Time 60.1 Seconds (22.3-36.8)
[2025-06-15] MEDS: MAGNESIUM OXIDE 400 MG TABLET PO (09:56)
[2025-06-15] MEDS: WATER, STERILE FOR INJECTION 10 ML VIAL XX (09:56)
[2025-06-15] MEDS: DOXYCYCLINE IV 100 MG in SODIUM CHLORIDE 0.9% IV 100 ML IVPB ×2 (09:56→21:06)
[2025-06-15] MEDS: acetaZOLAMIDE SODIUM FOR INJ 500 MG VIAL IV PUSH (09:56)
[2025-06-15] MEDS: EMPAGLIFLOZIN 10 MG TABLET PO (09:56)
[2025-06-15] MEDS: METOPROLOL SUCCINATE EXT REL 50 MG TABCR PO ×2 (09:56→21:06)
[2025-06-15] MEDS: DULoxetine HCL 60 MG CAPSULE.DR BY MOUTH (09:56)
--- NOTE | 2025-06-15 15:52 | P.PNIM_ITS ---
Progress Note: A&P Assessment and Plan (1) Pneumonia: Code(s): J18.9 - Pneumonia, unspecified organism Status: Acute Assessment and Plan: CXR from 06/14/25 showed RLL pnuemonia Patient started back on Rocephin, Doxycycline and Flagyl Monitor cultures (2) Acute heart failure: Code(s): I50.9 - Heart failure, unspecified Status: Acute Assessment and Plan: Right heart failure Presented with fall and SOB CT chest showed bilateral pleural effusion ECHO showed normal LVF, with right heart failure and pulm hypertension Hold Lasix, Now on Acetazolamide, continue Jardiance cardiology following (3) Hypertension: Qualifiers: Hypertension type: primary hypertension Qualified Code(s): I10 - Essential (primary) hypertension Code(s): I10 - Essential (primary) hypertension Status: Acute Assessment and Plan: Blood pressure is 111/57 -lisinopril currently on hold due to the acute kidney injury -continue with metoprolol -continued for a mental (4) Major depressive disorder, single episode, in partial remission: Code(s): F32.4 - Major depressive disorder, single episode, in partial remission Status: Acute Assessment and Plan: -continue duloxetine (5) LILY (acute kidney injury): Code(s): N17.9 - Acute kidney failure, unspecified Status: Acute Assessment and Plan: likely cardiorenal . -lisinopril is on hold. Cr 1.1 from 1.49 Laisx on hold, now on Diamox (6) UTI (urinary tract infection): Code(s): N39.0 - Urinary tract infection, site not specified Status: Acute Assessment and Plan: -the patient is currently on Rocephin -blood cultures are pending -Urine culture positive for GNB Ceftriaxone (7) Fall: Code(s): W19.XXXA - Unspecified fall, initial encounter Status: Acute Assessment and Plan: -the patient stated that she was weak and fell and laid on the floor for 2 days. -check daily CK. -career development consultant evaluation greatly be appreciated for possible rehab -PT OT evaluation currently be appreciated. Plan LLE DVT Venous doppler showed left sided DVT ON Heparin infusion Monitor Metabolic alkalosis, resolving Holding Lasix, now on Acetazolamide Acute hypoxemic resp failure Worsening OHS vs Right heart failure/Pulm hypertension vs Pneumonia CXR this morning showed RLL consolidation ECHO reviewed Abg showed CO2 retention Rocephin, doxycycline and Flagyl Continue diuresis Continue on AVAPS monitor closely Discussed with pulmonology and will continue AVAPS and monitor with ABG DVT prophylaxis on heparin infusion Subjective Date/time seen: 06/15/25 15:52 Interval history: Comfortable at bedside Still on AVAPS, abg improving Pulmonology following Review of Systems Constitutional: Constitutional: Reports as per HPI and Reports no additional constitutional complaints Eyes: Eyes: Reports as per HPI and Reports no additional eye complaints ENT: Reports system reviewed and no additional complaints, except as documented and Reports Normal hearing present Cardiovascular: Cardiovascular: Reports no additional cardiovascular complaints Respiratory: Respiratory: Reports as per HPI and Reports no additional respiratory complaints Gastrointestinal: Gastrointestinal: Reports as per HPI and Reports no additional gastrointestinal complaints Genitourinary: Genitourinary: Reports no additional female genitourinary complaints Musculoskeletal: Musculoskeletal: Reports no additional musculoskeletal complaints Integumentary/Breasts: Skin/Breast: Reports system reviewed and no additional complaints, except as docu Neurologic: Reports system reviewed and no additional complaints, except as documented and Reports Normal hearing present Psychiatric: Psychiatric: Reports no additional psychiatric complaints and Reports as per HPI Hematologic/Lymphatic: Hematologic/Lymphatic: Reports no additional hemato logic/lymphatic complaints Allergic/Immunologic: Allergic/Immunologic: Reports no additional allergic/immunologic complaints Exam Const: General: cooperative, healthy appearing, comfortable, no acute distress, well developed, awake, Physically active, average body habitus and well nourished Nutritional Appearance: average body habitus and well nourished Orientation/consciousness: oriented to person, oriented to place, oriented to time and patient oriented x3 HENMT: Head: normal to inspection, No palpable skull fracture present, normocephalic, atraumatic and abrasion Ears: hearing grossly normal bilaterally and external ears normal Eyes: General: appearance normal, both eyes and all related structures Alignment and Position: alignment normal Periorbital: periorbital findings normal Eyelids: eyelids normal Pupils: Equal, round and reactive pupils present EOM: EOMs intact bilaterally Neck: Neck: normal visual inspection and full ROM Resp: Effort & Inspection: normal respiratory effort Auscultation: clear to auscultation bilaterally Cardio: Palpation: normal PMI Rate: regular rate Rhythm: regular rhythm Heart sounds: S1 normal heart sound present and S2 normal heart sound present Peripheral pulses: Peripheral pulses 2+ throughout GI: Inspection: normal to inspection Auscultation: normal bowel sounds Rectal Exam: deferred Skin: General skin exam: normal color Lesions: no lesions Rashes: no rashes Trauma: no lacerations or abrasions Wounds: no wounds Hair: normal Nails: normal Neuro: General: oriented to person, oriented to place, oriented to time and patient oriented x3 Cranial nerves: Yes Equal, round and reactive pupils present and Yes Normal hearing present Cognition (Neuro): normal cognition Speech: normal speech Motor exam (neuro): 5/5 motor strength present throughout Sensory Exam: normal sensation Extrem: General: normal to inspection Right upper extremity: normal to inspection and shoulder/upper arm Left upper extremity: normal to inspection and shoulder/upper arm Right lower extremity: normal to inspection Left lower extremity: normal to inspection Psych: Appearance: grossly normal Mental Status: mental status grossly normal Speech and movement: Normal speech and movement present Affect: normal affect Attitude: cooperative Thought process: Normal thought process present Objective Data Vital Signs Vital Signs: Vital Signs - 24 hr 06/14/25 15:53 06/14/25 16:00 06/14/25 16:00 Temperature 98.5 F Pulse Rate 72 70 Respiratory Rate 18 Blood Pressure 114/91 H Pulse Oximetry 97 94 Oxygen Delivery BiPAP Oxygen Flow Rate Fraction of Inspired Oxygen 60 06/14/25 18:00 06/14/25 20:00 06/14/25 20:00 Temperature 97.5 F L Pulse Rate 75 72 73 Respiratory Rate 17 Blood Pressure 133/77 Pulse Oximetry 98 Oxygen Delivery Oxygen Flow Rate Fraction of Inspired Oxygen 06/14/25 20:12 06/14/25 20:14 06/14/25 20:18 Temperature Pulse Rate 72 72 Respiratory Rate 17 18 Blood Pressure Pulse Oximetry 98 94 Oxygen Delivery High Flow Therapy with Na High Flow Therapy with Na Oxygen Flow Rate 30 30 Fraction of Inspired Oxygen 60 60 06/14/25 20:25 06/14/25 20:48 06/14/25 22:00 Temperature Pulse Rate 75 70 70 Respiratory Rate 18 Blood Pressure Pulse Oximetry Oxygen Delivery Oxygen Flow Rate Fraction of Inspired Oxygen 06/14/25 22:51 06/14/25 23:26 06/14/25 23:40 Temperature 98.4 F Pulse Rate 65 63 63 Respiratory Rate 17 17 17 Blood Pressure 112/60 Pulse Oximetry 97 96 96 Oxygen Delivery BiPAP BiPAP Oxygen Flow Rate Fraction of Inspired Oxygen 50 06/15/25 00:00 06/15/25 02:00 06/15/25 02:02 Temperature Pulse Rate 65 65 66 Respiratory Rate 19 Blood Pressure Pulse Oximetry 94 Oxygen Delivery BiPAP Oxygen Flow Rate Fraction of Inspired Oxygen 06/15/25 02:05 06/15/25 02:15 06/15/25 03:01 Temperature 98.4 F Pulse Rate 66 68 66 Respiratory Rate 19 19 17 Blood Pressure 138/71 Pulse Oximetry 95 Oxygen Delivery Oxygen Flow Rate Fraction of Inspired Oxygen 06/15/25 03:38 06/15/25 04:00 06/15/25 05:49 Temperature Pulse Rate 66 63 64 Respiratory Rate 17 18 Blood Pressure Pulse Oximetry 95 97 Oxygen Delivery BiPAP BiPAP Oxygen Flow Rate Fraction of Inspired Oxygen 50 06/15/25 06:00 06/15/25 07:44 06/15/25 07:44 Temperature Pulse Rate 62 67 67 Respiratory Rate 20 Blood Pressure Pulse Oximetry 95 Oxygen Delivery High Flow Therapy with Na Oxygen Flow Rate 30 Fraction of Inspired Oxygen 60 06/15/25 07:49 06/15/25 08:00 06/15/25 08:00 Temperature 98.2 F Pulse Rate 67 68 68 Respiratory Rate 20 18 18 Blood Pressure 118/60 Pulse Oximetry 98 94 Oxygen Delivery BiPAP Oxygen Flow Rate Fraction of Inspired Oxygen 50 06/15/25 08:29 06/15/25 09:56 06/15/25 12:00 Temperature 97.1 F L Pulse Rate 71 75 66 Respiratory Rate 22 H 16 Blood Pressure 119/67 Pulse Oximetry 97 98 Oxygen Delivery BiPAP Oxygen Flow Rate Fraction of Inspired Oxygen 06/15/25 12:00 06/15/25 12:11 06/15/25 12:30 Temperature Pulse Rate 72 73 74 Respiratory Rate 20 20 Blood Pressure Pulse Oximetry 91 99 97 Oxygen Delivery High Flow Therapy with Na High Flow Therapy with Na High Flow Therapy with Na Oxygen Flow Rate 30 30 25 Fraction of Inspired Oxygen 50 60 50 06/15/25 13:42 06/15/25 13:42 06/15/25 13:49 Temperature Pulse Rate 73 93 73 Respiratory Rate 20 20 20 Blood Pressure Pulse Oximetry 93 Oxygen Delivery High Flow Therapy with Na Oxygen Flow Rate 25 Fraction of Inspired Oxygen 40 Intake/Output Intake/Output: Intake & Output 09/06/13/25 06/14/25 06/15/25 23:59 23:59 23:59 23:59 Intake Total 1578 1228.5 1436.6 683.0 Output Total 2651 1750 550 475 Balance -1073 -521.5 886.6 208.0 Meds/Results Medications: Active Medications Generic Name Dose Route Start Last Admin Trade Name Freq PRN Reason Stop Dose Admin Acetaminophen 650 mg 06/12/25 01:20 Acetaminophen 325 Mg Tablet PO Q4H PRN Mild Pain (1-3) or Fever Acetazolamide Sodium 500 mg 06/13/25 09:45 06/15/25 09:56 Acetazolamide Sodium For Inj 500 Mg Vial IV PUSH 500 mg DAILY NEIL Administration Albuterol/Ipratropium 3 ml 06/12/25 08:00 06/15/25 13:42 Ipratropium 0.5 Mg/Albuterol Sulfate 2.5 Mg Ampul.Neb 3 Ml INHALATION 3 ml Q6HRT NEIL Administration Duloxetine HCl 60 mg 06/12/25 09:00 06/15/25 09:56 Duloxetine Hcl 60 Mg Capsule.Dr BY MOUTH 60 mg DAILY NEIL Administration Empagliflozin 10 mg 06/13/25 09:00 06/15/25 09:56 Empagliflozin 10 Mg Tablet PO 10 mg DAILY NEIL Administration Fluticasone Propionate 2 spray 06/12/25 09:00 06/15/25 09:57 Fluticasone Propionate 0.05% Na Spr 16 Gm Btl (*Bkc) NASAL Not Given DAILY NEIL Furosemide 40 mg 06/12/25 09:55 06/13/25 08:18 Furosemide Inj 40 Mg/4 Ml Vial IV PUSH 40 mg On Hold: 06/13/25 09:41 BID NEIL Administration Heparin Sodium (Porcine) 6,000 units 06/12/25 10:17 06/14/25 03:30 Heparin Sodium 5,000 Units/Ml Vial IV PUSH 3,000 units PRN PRN Administration aPTT less than 55 seconds Heparin Sodium (Porcine) 3,000 units 06/12/25 10:17 06/15/25 09:57 Heparin Sodium 5,000 Units/Ml Vial IV PUSH 3,000 units PRN PRN Administration aPTT 55 - 70 seconds Ceftriaxone Sodium 1 gm/ 50 mls @ 100 mls/hr 06/12/25 23:00 06/14/25 22:51 Sodium Chloride IVPB Infused Q24H NEIL Infusion Heparin Sodium/Dextrose 25,000 units in 250 mls @ 10 mls/hr 06/12/25 10:20 06/15/25 09:57 Heparin Sodium/D5w 100 Units/Ml IV CONT 1,000 units/hr .Q24H NEIL 10 mls/hr Protocol Titration 1,000 UNITS/HR Doxycycline Hyclate 100 mg/ 100 mls @ 100 mls/hr 06/14/25 11:50 06/15/25 09:56 Sodium Chloride IVPB 100 mls/hr Q12HR NEIL Administration Metronidazole 500 mg in 100 mls @ 100 mls/hr 06/14/25 12:00 06/15/25 12:28 Flagyl 500 Mg/Iso Soln 100 Ml IVPB 100 mls/hr Q8H NEIL Administration Magnesium Oxide 400 mg 06/13/25 09:00 06/15/25 09:56 Magnesium Oxide 400 Mg Tablet PO 400 mg DAILY NEIL Administration Metoprolol Succinate 50 mg 06/12/25 21:00 06/15/25 09:56 Metoprolol Succinate Ext Rel 50 Mg Tabcr PO 50 mg Q12HR NEIL Administration Ondansetron HCl 4 mg 06/12/25 01:20 Ondansetron Inj 4 Mg/2 Ml Vial IV PUSH Q4H PRN Nausea Sodium Chloride 10 ml 06/12/25 14:00 06/15/25 05:27 Central Line Flush IV PUSH 10 ml Q8HR NEIL Administration Sodium Chloride 10 ml 06/12/25 12:09 Central Line Flush IV PUSH PRN PRN with TPN bag changes Sodium Chloride 20 ml 06/12/25 12:09 06/15/25 03:27 Central Line Flush IV PUSH 20 ml PRN PRN Administration after blood draws Radiology Results: ITS Impressions Head CT 06/11/25 21:02 IMPRESSION: 1. Normal aging brain. No fracture or acute intracranial process. Cervical Spine CT 06/11/25 21:05 IMPRESSION: 1. Degenerative skeletal changes as detailed above. No acute osseous abnormality. 2. Incompletely visualized at least small left pleural effusion. Chest/Abdomen/Pelvis CTA 06/12/25 07:59 IMPRESSION: 1. Small right and moderate-sized left pleural effusions. 2. No pulmonary embolus. 3. Small volume of perihepatic ascites. 4. Heterogeneous liver enhancement, consistent with passive hepatic congestion. Venous Doppler Study 06/12/25 09:59 IMPRESSION: 1. Left-sided DVT detailed above. Right-sided superficial thrombophlebitis Chest X-Ray 06/14/25 09:14 IMPRESSION: 1. Developing edema and/or airspace disease right lung. 2. Persistent left pleural effusion with complete lower lobe atelectasis and airspace consolidation. Labs Labs: Laboratory Results - last 24 hr 06/14/25 06/15/25 06/15/25 20:43 03:34 03:35 WBC 7.6 RBC 4.50 Hgb 13.2 Hct 44.4 MCV 98.7 MCH 29.3 MCHC 29.7 L RDW 14.9 H Plt Count 147 L MPV 11.0 H Immature Gran % (Auto) 0.4 Neut % (Auto) 62.7 Lymph % (Auto) 22.3 [place] % (Auto) 10.5 H Eos % (Auto) 3.4 Baso % (Auto) 0.7 Lymph # (Auto) 1.69 [place] # (Auto) 0.8 H Eos # (Auto) 0.3 Baso # (Auto) 0.1 Abs Immat Gran (auto) 0.03 Absolute Neuts (auto) 4.8 Absolute Nucleated RBC 0.000 Nucleated RBC % 0.0 APTT 109.4 H 71.5 H Puncture Site ABG pH ABG pCO2 ABG pO2 ABG PO2/FiO2 Ratio ABG HCO3 ABG O2 Saturation ABG O2 Content ABG Base Excess A-a Gradient Oxyhemoglobin Total Hemoglobin O2 Delivery Device O2 Liters/Min FiO2 Sodium 138 Potassium 3.7 Chloride 92 L Carbon Dioxide 39 H Anion Gap 7 BUN 28 H D Creatinine 1.10 H Estim Creat Clear Calc 51 Estimated GFR 49 L Glucose 107 Lactic Acid Calcium 8.6 Magnesium 1.9 Total Bilirubin 0.5 AST 23 ALT 20 Alkaline Phosphatase 50 Total Protein 5.8 L Albumin 3.2 L Procalcitonin 0.1 Free T4 06/15/25 06/15/25 06/15/25 03:36 05:32 09:15 WBC RBC Hgb Hct MCV MCH MCHC RDW Plt Count MPV Immature Gran % (Auto) Neut % (Auto) Lymph % (Auto) [place] % (Auto) Eos % (Auto) Baso % (Auto) Lymph # (Auto) [place] # (Auto) Eos # (Auto) Baso # (Auto) Abs Immat Gran (auto) Absolute Neuts (auto) Absolute Nucleated RBC Nucleated RBC % APTT 60.1 H Puncture Site Left radial ABG pH 7.341 L ABG pCO2 74.9 H* ABG pO2 87.4 ABG PO2/FiO2 Ratio 1.75 ABG HCO3 39.6 H ABG O2 Saturation 95.7 ABG O2 Content 19.2 ABG Base Excess 10.5 A-a Gradient 184.8 Oxyhemoglobin 95.2 Total Hemoglobin 14.3 O2 Delivery Device Other device O2 Liters/Min FiO2 50 Sodium Potassium Chloride Carbon Dioxide Anion Gap BUN Creatinine Estim Creat Clear Calc Estimated GFR Glucose Lactic Acid 0.9 Calcium Magnesium Total Bilirubin AST ALT Alkaline Phosphatase Total Protein Albumin Procalcitonin Free T4 0.92 Quality VTE Prophylaxis VTE prophylaxis: mechanical ordered
[2025-06-15 17:07] LABS: Partial Thromboplastin Time 106.0 Seconds (22.3-36.8)
[2025-06-16] VITALS (29 sets, daily range): BP systolic 117–144; BP diastolic 55–88; PULSE 63–91; RESP 18–21; TEMP 36.5–37.2; O2SAT 91–100
[2025-06-16] MEDS: cefTRIAXone 1 GM in SODIUM CHLORIDE 0.9% IV 50 ML 100 ML IVPB ×2 (00:02→23:52)
[2025-06-16] MEDS: CENTRAL LINE FLUSH 20 ML IV PUSH ×3 (00:03→08:00)
[2025-06-16 00:54] LABS: Partial Thromboplastin Time 64.4 Seconds (22.3-36.8)
[2025-06-16] MEDS: metroNIDAZOLE 500 MG/ISO 100ML 500 MG/100 ML BAG 100 MG IVPB ×3 (05:02→21:30)
[2025-06-16] MEDS: CENTRAL LINE FLUSH 10 ML IV PUSH ×3 (05:02→22:11)
[2025-06-16 05:34] LABS: Alveolar/Arterial O2 Gradient 156.5 mmHg; Carboxyhemoglobin 1.2 % THb (0-2.0); Fractional Inspired Oxygen 50 %; HCO3 ABG 34.9 mEq/l (22.0-26.0); Methemoglobin ABG 0.2 %THb (0-1.5); Oxygen Content ABG 19.5 %vol (16.0-22.0); Oxygen Saturation ABG 98.3 % (95.0-100.0); PO2 ABG 126.9 mmHg (80.0-100.0); PO2 FiO2 Ratio Arterial Blood 2.54 %; Reduced Hemoglobin 1.2 %THb (0-5.0)
[2025-06-16 05:37] LABS: Modified Allen's Test Pass; PCO2 ABG 65.0 mmHg (35.0-45.0); Site Drawn LEFT RADIAL
--- NOTE | 2025-06-16 05:59 | PCRCNOTE ---
Duplicate ABG at 0511 and 0500
[2025-06-16] MEDS: HEPARIN SOD/D5W 100 UNITS/ML 25,000 UNITS/250 ML BAG 10 UNITS IV CONT (06:11)
[2025-06-16 06:38] LABS: Hematocrit 43.6 % (37.0-47.0); Hemoglobin 12.7 g/dL (12.0-15.0); Immature Granulocyte Percent A 0.3 % (0-0.5); Immature Platelet Fraction Pct 4.8 % (0.9-11.2); Lymphocytes Absolute Auto 1.56 K/mm3 (0.9-3.2); Mean Corpuscular HGB Conc 29.1 g/dl (32-36); Mean Corpuscular Hemoglobin 28.7 pg (26-34); Mean Corpuscular Volume 98.6 fl (80-100); Nucleated Red Blood Cells Absolute Auto 0.000 K/mm3 (0.0-0.012); Nucleated Red Blood Cells Perc 0.0 % (0.0-0.2); Platelet Count Result 143 k/mm3 (150-375); Red Blood Count 4.42 M/mm3 (4.2-5.4); White Blood Count 6.7 K/mm3 (4.5-10.0)
[2025-06-16 07:35] LABS: Alanine Aminotransferase 16 U/L (6-35); Albumin Level 3.2 g/dL (3.5-5.1); Alkaline Phosphatase 43 U/L (38-126); Anion Gap 2 mmol/L (4-12); Aspartate Amino Transferase 23 U/L (14-36); Bilirubin,Total 0.5 mg/dL (0.2-1.3); Blood Urea Nitrogen 24 mg/dL (7-17); Calcium 8.6 mg/dL (8.4-10.2); Carbon Dioxide 38 mmol/L (22-30); Chloride 97 mmol/L (98-107); Estimated CRCL calculation 51 ml/min; Estimated Glomerular Filt Rate 47; Glucose 97 mg/dL (65-110); Magnesium 1.7 mg/dL (1.6-2.3); Potassium 3.9 mmol/L (3.4-5.0); Sodium 137 mmol/L (137-145); Total Protein 5.8 g/dL (6.3-8.2)
[2025-06-16 07:53] LABS: NT Pro B Type Natriuretic Pept 5300 pg/mL (19.9-100)
[2025-06-16 08:03] LABS: CRP 1.7 mg/dL (<1.0)
[2025-06-16 08:32] LABS: Partial Thromboplastin Time 122.3 Seconds (22.3-36.8)
[2025-06-16] MEDS: IPRATROPIUM 0.5 MG/ALBUTEROL SULFATE 2.5 MG AMPUL.NEB 3 ML INHALATION ×3 (08:37→20:55)
[2025-06-16] MEDS: MAGNESIUM OXIDE 400 MG TABLET PO (08:43)
[2025-06-16] MEDS: METOPROLOL SUCCINATE EXT REL 50 MG TABCR PO ×2 (08:43→21:30)
[2025-06-16] MEDS: FUROSEMIDE 40 MG TABLET PO ×2 (08:44→15:46)
[2025-06-16] MEDS: DULoxetine HCL 60 MG CAPSULE.DR BY MOUTH (08:44)
[2025-06-16] MEDS: EMPAGLIFLOZIN 10 MG TABLET PO (08:44)
[2025-06-16] MEDS: DOXYCYCLINE IV 100 MG in SODIUM CHLORIDE 0.9% IV 100 ML IVPB ×2 (08:44→21:30)
[2025-06-16] MEDS: FLUTICASONE PROPIONATE 0.05% NA SPR 16 GM BTL (*BKC) 2 SPRAY NASAL (08:49)
[2025-06-16 10:46] LABS: Procalcitonin 0.1 ng/mL
--- NOTE | 2025-06-16 12:43 | P.CONPL_ITS ---
Assessment and Plan Assessment and plan (1) Obesity hypoventilation syndrome: Code(s): E66.2 - Morbid (severe) obesity with alveolar hypoventilation Status: Acute Assessment and Plan: Patient with morbid obesity, BMI 52.3, CT scan with no evidence of emphysema, interstitial lung disease. Presented with a high BNP that is improved with diuresis, normal thyroid function. ABG on presentation was 7.36/57/77. ABG on noninvasive ventilation with AVAPS mode with 7.34/75/87. Patient has obesity hypoventilation syndrome and will benefit from noninvasive ventilation to prevent further deterioration and subsequent hospitalization. She did not tolerate BiPAP. 06/13/25: patient was started on noninvasive ventilation with a BiPAP mode but had difficulty with pressures of 14/7 and low tidal volumes of 215. patient was placed on noninvasive ventilation with the AVAPS mode and settings adjusted for comfort with a rate of 14, tidal volume 500, EPAP 5, minimal inspiratory pressure 6, maximal inspiratory pressure 25 and 50% FiO2. 06/15/2025: Patient wore the noninvasive ventilation with the AVAPS mode as above with an ABG prior to removal of 7.34/75/89. 06/16/25: Patient said she wore the hospital noninvasive ventilation with the AVAPS rate of 20, tidal volume 550, EPAP 5, minimal spur favian pressure 6, maximum inspiratory pressure 25, inspiratory time 1.0, rise of 3 and 50% FiO2. She said she was able to sleep with this mask on and felt as she did well. Patient had an overnight oximetry on these settings with recording duration of 9 hours and 14 minutes, average saturation 96%, low saturation 91%, time with saturation less than or equal to 88% was 0 minutes, oxygen desaturation index 0.6. ABG prior to removal 7.35/65/127. plan: Current noninvasive ventilation with the AVAPS mode provide improved ventilation and will not try to increase her rate or tidal volume any more at this time. Overnight oximetry with adequate oxygenation. I will repeat overnight oximetry tonight on 36% FiO2. patient to be discharged to a facility and will inform care coordination that she will need an AVAPS unit on discharge to a facility. If she is scheduled to go to a SNF and then home we will initiate home noninvasive ventilation so this can be arranged when she is discharged from the SNF. Discussed with Dr. River, will follow with you. (2) Left femoral vein DVT: Code(s): I82.412 - Acute embolism and thrombosis of left femoral vein Status: Acute Assessment and Plan: patient with a negative CT angiogram of the chest on 06/11/2025. On 06/12 she had a left femoral vein DVT and right superficial greater saphenous DVT. 06/16/2025: Patient has no bleeding on IV heparin, would switch to an oral anticoagulant that her insurance would cover. History of Present Illness History of Present Illness Consult date: 06/16/25 Chief complaint: NSTEMI, Acute heart failure; Pulm HTN; Weakness; A Narrative: 06/16/2025: This is a new pulmonary consult for chronic hypercarbic respiratory failure. 70-year-old with a history of hypertension, osteoarthritis, morbid obesity Patient presented on 06/12/2025 after she had fallen and then on the floor for 2 days. In the emergency department her blood pressure was 182/102, heart rate 96, respirations 24, saturations on room air were 79%. On 6 L her saturations were 93%. White blood cell count was 8.3, hemoglobin 17.6, BUN 48, creatinine 1.49, serum bicarbonate 31. BNP was 63328, troponin was 0.069, repeat 0.70. COVID influenza RSV RT PCR negative, D-dimer 3.35. TSH 2.060. CT angiogram of the chest was negative for PE, moderate left and small right pleural effusion, pulmonary congestion, edema of the body wall. Patient was treated with IV Lasix, ceftriaxone and azithromycin and bronchodilators. Regarding her baseline patient can only walk across the room. She is a never smoker but was exposed to secondhand smoke from both of her parents and secondhand smoke until 20 years ago. 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 she denies asthma, COPD or recurrent pneumonias. 06/12/2025 ABG on 4 L 7.36/57/77. Echocardiogram with LVEF 50-55%, normal diastolic function, RV severely dilated with decreased function, right atrium moderately enlarged, moderate tricuspid regurg with PASP of 50. Of note on 01/16/2024 patient had normal RV size and function, normal right atrial size and a PASP of 11. Patient had a left femoral DVT and right superficial greater saphenous DVT. 06/13/25: patient was started on noninvasive ventilation with a BiPAP mode but had difficulty with pressures of 14/7 and low tidal volumes of 215. patient was placed on noninvasive ventilation with the AVAPS mode and settings adjusted for comfort with a rate of 14, tidal volume 500, EPAP 5, minimal inspiratory pressure 6, maximal inspiratory pressure 25 and 50% FiO2. 06/15/2025: Patient wore the noninvasive ventilation with the AVAPS mode as above with an ABG prior to removal of 7.34/75/89. Nocturnal AVAPS settings were changed to a rate of 20 and a tidal volume of 550. Free T4 0.92. 06/16/2025: Patient says she is improved since admission and feels she is 60% back to her baseline. She says that her swelling is improved. She has no phlegm or no hemoptysis. She is afebrile. White blood cell count 6.7, creatinine 1.13, B[place] [address] on 06/11/2025 to a value of 5300 today. Procalcitonin is unchanged from 06/15/2025 at 0.1 and remains 0.1 today. CRP is 1.7. Yesterday she is positive 221 mL. Currently she is -328 mL since admission. Her weight today is 125.5 kg with an admission weight of 118.1 kg. Chest x-ray today with retrocardiac consolidation, perihilar congestion. No change from 06/14/2025. Patient said she wore the hospital noninvasive ventilation with the AVAPS rate of 20, tidal volume 550, EPAP 5, minimal spur favian pressure 6, maximum inspiratory pressure 25, inspiratory time 1.0, rise of 3 and 50% FiO2. She said she was able to sleep with this mask on and felt as she did well. Patient had an overnight oximetry on these settings with recording duration of 9 hours and 14 minutes, average saturation 96%, low saturation 91%, time with saturation less than or equal to 88% was 0 minutes, oxygen desaturation index 0.6. ABG prior to removal 7.35/65/127. DATA: 06/16/25: EXAMINATION: XR chest 1V portable INDICATION: Pneumonia TECHNIQUE: frontal view of the chest was obtained. COMPARISON: Chest radiograph dated 06/14/2025 FINDINGS: Right upper extremity peripherally inserted central venous catheter (PICC) tip at the caudal superior vena cava. Persistent opacities in the left lower lung zone which likely includes a small left pleural effusion. Mild bronchial wall thickening most prominent in the right perihilar region. No pneumothorax or right-sided pleural effusion. Cardiomegaly. IMPRESSION: 1. Persistent opacity left lower lung zone consistent with small pleural effusion and associated left basilar atelectasis and/or pneumonia. 2. Right perihilar bronchial wall thickening which could be seen with bronchitis or peribronchial cuffing related mild pulmonary edema. 3. Cardiomegaly. 06/12/25: EXAMINATION: US venous doppler [facility], 06/12/2025 8:45 CDT HISTORY: Elevated D-dimer COMPARISON: None Technique: Manuel-scale and color Doppler images were attempted of the lower saphenofemoral junction, common femoral vein,superficial femoral vein, proximal deep femoral vein, proximal deep femoral vein, popliteal vein and posterior tibial veins. Findings: Deep Venous System: There is thrombus within the left femoral vein with diminished flow compression, the remaining visualized deep venous system is unremarkable Within the superficial right greater saphenous vein there is thrombus with diminished flow Probable complex Mejia's cyst right knee measures 2.3 x 1.7 cm, outpatient MRI is suggested. IMPRESSION: 1. Left-sided DVT detailed above. Right-sided superficial thrombophlebitis 06/11/25: EXAMINATION: CTA chest PE abdomen pel INDICATION: Hypoxia. Abdominal pain. COMPARISON: None. FINDINGS: CTA chest: The lungs demonstrate mild atelectasis with a dependent predominance. There are small right and moderate-sized left pleural effusions. Cardiomegaly is noted. No pericardial effusion. The central pulmonary arteries are enlarged, consistent with pulmonary arterial hypertension. There is no pulmonary embolus. There are bridging endplate osteophytes at multiple levels in the spine, consistent with diffuse idiopathic skeletal hyperostosis (DISH). CT abdomen and pelvis: There is heterogeneous liver enhancement, consistent with passive hepatic congestion. The spleen is normal. There are gallstones in the gallbladder, which is normal in size. The pancreas and adrenal glands are normal. 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 There are no dilated loops of bowel. The appendix is normal. There are no pathologically enlarged lymph nodes. There is no free intraperitoneal fluid. Body wall edema is noted. There is severe lumbar spondylosis. IMPRESSION: 1. Small right and moderate-sized left pleural effusions. 2. No pulmonary embolus. 3. Small volume of perihepatic ascites. 4. Heterogeneous liver enhancement, consistent with passive hepatic congestion. 06/12/25: Echo Summary 1. Technically suboptimal study due to poor sonographic images. 2. Definity contrast administered improved wall motion interpretation. 3. Left ventricular chamber dimension is normal. 4. D shape ventricular septum during systole suggest right pressure overload. 5. Left ventricular systolic function is preserved, estimated at 50-55. 6. There is moderate concentric increased left ventricular wall thickness. 7. The left ventricular diastolic function is normal. 8. Right ventricular chamber dimension is severely enlarged. 9. Right ventricular systolic function is significantly reduced with abnormal TAPSE 1.1 cm. 10. Right atrial chamber dimension is moderately enlarged. 11. There is mild aortic valve sclerosis. 12. There is moderate tricuspid valve regurgitation. 13. Moderate pulmonary hypertension, estimated pulmonary arterial systolic pressure is 50 mmHg. 14. There is trivial pericardial effusion. Summary 1. Technically suboptimal study due to poor sonographic images. 2. Contrast administered improved wall motion interpretation. 3. Left ventricular chamber dimension is normal. 4. Left ventricular systolic function is normal, estimated at 65-70%. 5. There is moderate concentric increased left ventricular wall thickness. 6. The left ventricular diastolic function is grade I diastolic dysfunction. 7. E/e' 8 is minimally elevated. 8. No pulmonary hypertension, estimated pulmonary arterial systolic pressure is 11 mmHg. Right Ventricle Right ventricular systolic function is normal and with normal TAPSE 2.7 cm. Right ventricular chamber dimension is normal. Right Atria Right atrial chamber dimension is normal. Review of Systems 2 Constitutional: Constitutional: Reports no additional constitutional complaints Eyes: Eyes: Reports no additional eye complaints ENT: Reports system reviewed and no additional complaints, except as documented Cardiovascular: Cardiovascular: Reports no additional cardiovascular complaints Respiratory: Respiratory: Reports no additional respiratory complaints Gastrointestinal: Gastrointestinal: Reports no additional gastrointestinal complaints Musculoskeletal: Musculoskeletal: Reports no additional musculoskeletal complaints Neurologic: Reports system reviewed and no additional complaints, except as documented Psychiatric: Psychiatric: Reports no additional psychiatric complaints Endocrine: Endocrine: Reports no additional endocrine complaints Hematologic/Lymphatic: Hematologic/Lymphatic: Reports no additional hematologic/lymphatic complaints Allergic/Immunologic: Allergic/Immunologic: Reports no additional allergic/immunologic complaints [facility] Past Medical History Medical History (Updated 06/16/25 @ 13:08 by Ronnell King MD) Major depressive disorder, single episode, in partial remission URI with cough and congestion Fatigue Primary osteoarthritis of both knees Primary osteoarthritis involving multiple joints Mixed stress and urge urinary incontinence Hypertension Vitamin D deficiency disease Surgical History Surgical History (Updated 06/12/25 @ 04:33 by Phyllis Callejas APRN) History of medial meniscus repair of left knee H/O: hysterectomy Family History Family History Mother Patient's mother is in good health Father Cerebrovascular accident, Onset Age: 89 Other Carcinoma of colon Social History Social History (Updated 06/12/25 @ 04:34 by Phyllis Callejas APRN) Social History: She lives home alone. She has 1 estranged daughter. 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 Code status: Full code Smoking status: Never smoker Alcohol intake: never Substance use: never Do You Feel Safe in your Home?: Yes Lack of Transportation: No Lack of Food: Never True Current Housing: I Have Housing Concerned About Future Housing: No Difficulty Paying Gas/Electric Bills: No Difficulty Paying for Meds: No Currently Unemployed: No Education: Bachelor's Degree Difficulty w/ Childcare or Family Care: No Living arrangements: with family Spiritual care concerns: No Meds Home Medications and Allergies Home Medications ?Medication ?Instructions ?Recorded ?Confirmed ?Type duloxetine 60 mg capsule,delayed See Rx Instructions . Route 04/29/24 06/12/25 Rx release .COMPLEX #90 caps lisinopril 20 mg tablet See Rx Instructions .Route 0 04/29/24 06/12/25 Rx .COMPLEX #90 tabs albuterol sulfate 90 mcg/actuation See Rx Instructions .Route 09/09/24 06/12/25 Rx aerosol inhaler .COMPLEX #8.5 ea fluticasone propionate 50 See Rx Instructions .Route 0 10/01/24 06/12/25 Rx mcg/actuation nasal .COMPLEX #48 mL spray,suspension cholecalciferol (vitamin D3) 50 See Rx Instructions .R oute 02/03/25 06/12/25 Rx mcg (2,000 unit) tablet .COMPLEX #90 tabs celecoxib 200 mg capsule See Rx Instructions .Route 0 04/21/25 06/12/25 Rx .COMPLEX #90 caps metoprolol succinate 50 mg 50 mg PO DAILY #90 tabs 06/12/25 Rx tablet,extended release 24 hr (Toprol XL) verapamil 240 mg tablet,extended See Rx Instructions . Route 04/21/25 06/12/25 Rx release .COMPLEX #90 tabs Allergies Allergy/AdvReac Type Severity Reaction Status Date / Time nystatin (From Mycostatin) Allergy Itching Verified 06/12/25 01:54 Vital Signs Vital Signs - 24 hr 06/15/25 13:42 06/15/25 13:42 06/15/25 13:49 Temperature Pulse Rate 73 93 73 Respiratory Rate 20 20 20 Blood Pressure Pulse Oximetry 93 Oxygen Delivery High Flow Therapy with Na Oxygen Flow Rate 25 Fraction of Inspired Oxygen 40 06/15/25 14:00 06/15/25 15:57 06/15/25 16:00 Temperature 36.8 C Pulse Rate 75 71 79 Respiratory Rate 16 18 Blood Pressure 121/63 Pulse Oximetry 93 92 Oxygen Delivery High Flow Therapy with Na Oxygen Flow Rate 30 Fraction of Inspired Oxygen 50 06/15/25 16:00 06/15/25 18:00 06/15/25 18:21 Temperature Pulse Rate 75 80 78 Respiratory Rate 20 Blood Pressure Pulse Oximetry 95 Oxygen Delivery BiPAP Oxygen Flow Rate Fraction of Inspired Oxygen 06/15/25 20:00 06/15/25 20:00 06/15/25 20:35 Temperature 36.5 C Pulse Rate 77 76 76 Respiratory Rate 20 20 Blood Pressure 135/60 Pulse Oximetry 97 Oxygen Delivery Oxygen Flow Rate Fraction of Inspired Oxygen 06/15/25 20:35 06/15/25 20:40 06/15/25 20:44 Temperature Pulse Rate 76 78 Respiratory Rate 20 23 H Blood Pressure Pulse Oximetry 97 97 Oxygen Delivery BiPAP Oxygen Flow Rate Fraction of Inspired Oxygen 06/15/25 20:50 06/15/25 21:06 06/15/25 22:00 Temperature Pulse Rate 77 74 76 Respiratory Rate 20 Blood Pressure Pulse Oximetry 97 Oxygen Delivery BiPAP Oxygen Flow Rate Fraction of Inspired Oxygen 50 06/15/25 22:21 06/16/25 00:00 06/16/25 00:00 Temperature 36.5 C Pulse Rate 76 68 74 Respiratory Rate 23 H 20 Blood Pressure 130/64 Pulse Oximetry 97 96 Oxygen Delivery BiPAP Oxygen Flow Rate Fraction of Inspired Oxygen 06/16/25 00:03 06/16/25 01:31 06/16/25 02:00 Temperature Pulse Rate 68 67 68 Respiratory Rate 20 20 Blood Pressure Pulse Oximetry 96 99 Oxygen Delivery BiPAP BiPAP Oxygen Flow Rate Fraction of Inspired Oxygen 50 06/16/25 04:00 06/16/25 04:00 06/16/25 04:40 Temperature 37.2 C Pulse Rate 65 65 63 Respiratory Rate 20 20 Blood Pressure 117/58 L Pulse Oximetry 97 97 Oxygen Delivery BiPAP Oxygen Flow Rate Fraction of Inspired Oxygen 50 06/16/25 04:41 06/16/25 06:00 06/16/25 07:38 Temperature Pulse Rate 63 63 72 Respiratory Rate 20 20 Blood Pressure Pulse Oximetry 98 96 Oxygen Delivery BiPAP High Flow Therapy with Na Oxygen Flow Rate 25 Fraction of Inspired Oxygen 40 06/16/25 08:00 06/16/25 08:00 06/16/25 08:00 Temperature 36.5 C Pulse Rate 74 73 Respiratory Rate 20 Blood Pressure 134/74 Pulse Oximetry 96 100 Oxygen Delivery High Flow Therapy with Na Oxygen Flow Rate 25 Fraction of Inspired Oxygen 40 06/16/25 08:39 06/16/25 08:43 06/16/25 08:46 Temperature Pulse Rate 76 76 77 Respiratory Rate 20 20 Blood Pressure Pulse Oximetry Oxygen Delivery Oxygen Flow Rate Fraction of Inspired Oxygen 06/16/25 09:33 06/16/25 10:00 06/16/25 11:39 Temperature Pulse Rate 71 Respiratory Rate Blood Pressure Pulse Oximetry 97 96 Oxygen Delivery High Flow Nasal Cannula High Flow Therapy with Na Oxygen Flow Rate 5 2 Fraction of Inspired Oxygen Exam 2 Const: General: cooperative and comfortable Orientation/consciousness: o riented to person, oriented to place and oriented to time Other: morbid obesity HENMT: Head: normal to inspection Ears: hearing grossly normal bilaterally Eyes: General: appearance normal, both eyes and all related structures Neck: Neck: normal visual inspection Chest: Chest palpation & inspection: normal inspection of the chest Resp: Effort & Inspection: normal respiratory effort and able to speak in complete sentences Auscultation: no crackles, no rales, no rhonchi, no wheezes and diminished lung sounds Other: Obesity Cardio: Jugular venous distension: no JVD GI: Inspection: normal to inspection GI Palp: No abdominal tenderness Skin: General skin exam: normal color Neuro: General: oriented to person, oriented to place and oriented to time Extrem: General: normal to inspection and no edema Psych: Appearance: grossly normal Results Laboratory Findings 06/16/25 06:27 06/16/25 06:27 ABG, PT/INR, D-dimer: ABG ABG pH 7.348 (7.350-7.450) L 06/16/25 04:49 ABG pCO2 65.0 mmHg (35.0-45.0) H* 06/16/25 04:49 ABG pO2 126.9 mmHg (80.0-100.0) H 06/16/25 04:49 ABG O2 Saturation 98.3 % (95.0-100.0) 06/16/25 04:49 PT/INR, D-dimer PT 15.7 Seconds (11.1-14.7) H 06/12/25 12:23 INR 1.3 06/12/25 12:23 D-Dimer 3.35 ug/mL (<0.48) H 06/11/25 20:46 Abnormal lab findings: Abnormal Labs 06/11/25 06/11/25 06/11/25 20:46 21:26 23:57 RBC 6.00 H Hgb 17.6 H Hct 57.6 H MCHC 30.6 L RDW 17.1 H Plt Count MPV Neut % (Auto) 78.9 H Lymph % (Auto) 12.8 L [place] % (Auto) [place] # (Auto) Abs Immat Gran (auto) 0.04 H Absolute Neuts (auto) Absolute Nucleated RBC PT APTT D-Dimer 3.35 H ABG pH ABG pCO2 ABG pO2 ABG HCO3 ABG O2 Saturation ABG O2 Content Chloride Carbon Dioxide 31 H Anion Gap BUN 48 H D Creatinine 1.49 H Estimated GFR 34 L Glucose Lactic Acid 3.2 H Magnesium Total Bilirubin 2.2 H AST 49 H ALT 41 H Troponin I 0.069 H* 0.070 H* C-Reactive Protein NT-Pro-B Natriuret Pep 63224 H Total Protein Albumin Urine Protein 1+ H Urine Glucose (UA) Trace H Urine Ketones Trace H Ur Blood (Man) Non-hemolyzed trace H Urine Nitrate Positive H Urine Bilirubin 1+ H Urine Urobilinogen 2.0 H Leukocyte Esterase Rfl 1+ H Urine WBC 11-20 H Urine Bacteria 3+ H Urine Yeast (Budding) Present H 06/12/25 06/12/25 06/12/25 07:26 07:34 12:23 RBC 5.62 H Hgb 16.4 H Hct 54.5 H MCHC 30.1 L RDW 16.0 H Plt Count MPV 10.6 H Neut % (Auto) Lymph % (Auto) 18.2 L [place] % (Auto) 9.0 H [place] # (Auto) 0.8 H Abs Immat Gran (auto) Absolute Neuts (auto) Absolute Nucleated RBC 0.020 H PT 15.7 H APTT D-Dimer ABG pH ABG pCO2 56.7 H ABG pO2 77.4 L ABG HCO3 31.0 H ABG O2 Saturation 94.7 L ABG O2 Content 22.1 H Chloride 95 L Carbon Dioxide 35 H Anion Gap BUN 44 H Creatinine 1.45 H Estimated GFR 36 L Glucose Lactic Acid Magnesium Total Bilirubin AST ALT Troponin I 0.072 H* C-Reactive Protein NT-Pro-B Natriuret Pep Total Protein Albumin Urine Protein Urine Glucose (UA) Urine Ketones Ur Blood (Man) Urine Nitrate Urine Bilirubin Urine Urobilinogen Leukocyte Esterase Rfl Urine WBC Urine Bacteria Urine Yeast (Budding) 06/12/25 06/13/25 06/13/25 18:49 01:20 09:40 RBC Hgb Hct 47.5 H MCHC 30.3 L RDW 15.9 H Plt Count MPV Neut % (Auto) Lymph % (Auto) 15.7 L [place] % (Auto) 9.8 H [place] # (Auto) 0.9 H Abs Immat Gran (auto) 0.04 H Absolute Neuts (auto) 6.8 H Absolute Nucleated RBC PT APTT 125.1 H 125.5 H 78.1 H D-Dimer ABG pH ABG pCO2 ABG pO2 ABG HCO3 ABG O2 Saturation ABG O2 Content Chloride 91 L Carbon Dioxide > 40 H Anion Gap BUN 42 H Creatinine 1.55 H Estimated GFR 33 L Glucose 118 H Lactic Acid Magnesium 1.5 L Total Bilirubin AST ALT Troponin I C-Reactive Protein NT-Pro-B Natriuret Pep Total Protein Albumin Urine Protein Urine Glucose (UA) Urine Ketones Ur Blood (Man) Urine Nitrate Urine Bilirubin Urine Urobilinogen Leukocyte Esterase Rfl Urine WBC Urine Bacteria Urine Yeast (Budding) 06/14/25 06/14/25 06/14/25 01:59 08:33 12:34 RBC Hgb Hct MCHC 29.8 L RDW 15.3 H Plt Count MPV 10.8 H Neut % (Auto) Lymph % (Auto) [place] % (Auto) 11.1 H [place] # (Auto) 0.8 H Abs Immat Gran (auto) Absolute Neuts (auto) Absolute Nucleated RBC PT APTT 62.9 H D-Dimer ABG pH 7.307 L ABG pCO2 89.5 H* ABG pO2 79.5 L ABG HCO3 43.7 H ABG O2 Saturation 93.9 L ABG O2 Content Chloride 89 L Carbon Dioxide > 40 H Anion Gap BUN 38 H Creatinine 1.47 H Estimated GFR 35 L Glucose Lactic Acid Magnesium Total Bilirubin AST ALT Troponin I C-Reactive Protein NT-Pro-B Natriuret Pep Total Protein 5.9 L Albumin 3.4 L Urine Protein Urine Glucose (UA) Urine Ketones Ur Blood (Man) Urine Nitrate Urine Bilirubin Urine Urobilinogen Leukocyte Esterase Rfl Urine WBC Urine Bacteria Urine Yeast (Budding) 06/14/25 06/15/25 06/15/25 20:43 03:34 03:35 RBC Hgb Hct MCHC 29.7 L RDW 14.9 H Plt Count 147 L MPV 11.0 H Neut % (Auto) Lymph % (Auto) [place] % (Auto) 10.5 H [place] # (Auto) 0.8 H Abs Immat Gran (auto) Absolute Neuts (auto) Absolute Nucleated RBC PT APTT 109.4 H 71.5 H D-Dimer ABG pH ABG pCO2 ABG pO2 ABG HCO3 ABG O2 Saturation ABG O2 Content Chloride 92 L Carbon Dioxide 39 H Anion Gap BUN 28 H D Creatinine 1.10 H Estimated GFR 49 L Glucose Lactic Acid Magnesium Total Bilirubin AST ALT Troponin I C-Reactive Protein NT-Pro-B Natriuret Pep Total Protein 5.8 L Albumin 3.2 L Urine Protein Urine Glucose (UA) Urine Ketones Ur Blood (Man) Urine Nitrate Urine Bilirubin Urine Urobilinogen Leukocyte Esterase Rfl Urine WBC Urine Bacteria Urine Yeast (Budding) 06/15/25 06/15/25 06/15/25 05:32 09:15 16:48 RBC Hgb Hct MCHC RDW Plt Count MPV Neut % (Auto) Lymph % (Auto) [place] % (Auto) [place] # (Auto) Abs Immat Gran (auto) Absolute Neuts (auto) Absolute Nucleated RBC PT APTT 60.1 H 106.0 H D-Dimer ABG pH 7.341 L ABG pCO2 74.9 H* ABG pO2 ABG HCO3 39.6 H ABG O2 Saturation ABG O2 Content Chloride Carbon Dioxide Anion Gap BUN Creatinine Estimated GFR Glucose Lactic Acid Magnesium Total Bilirubin AST ALT Troponin I C-Reactive Protein NT-Pro-B Natriuret Pep Total Protein Albumin Urine Protein Urine Glucose (UA) Urine Ketones Ur Blood (Man) Urine Nitrate Urine Bilirubin Urine Urobilinogen Leukocyte Esterase Rfl Urine WBC Urine Bacteria Urine Yeast (Budding) 06/16/25 06/16/25 06/16/25 00:17 04:49 06:27 RBC Hgb Hct MCHC 29.1 L RDW 14.8 H Plt Count 143 L MPV 11.1 H Neut % (Auto) Lymph % (Auto) [place] % (Auto) 10.9 H [place] # (Auto) 0.7 H Abs Immat Gran (auto) Absolute Neuts (auto) Absolute Nucleated RBC PT APTT 64.4 H D-Dimer ABG pH 7.348 L ABG pCO2 65.0 H* ABG pO2 126.9 H ABG HCO3 34.9 H ABG O2 Saturation ABG O2 Content Chloride 97 L Carbon Dioxide 38 H Anion Gap 2 L BUN 24 H Creatinine 1.13 H Estimated GFR 47 L Glucose Lactic Acid Magnesium Total Bilirubin AST ALT Troponin I C-Reactive Protein 1.7 H NT-Pro-B Natriuret Pep 5300 H Total Protein 5.8 L Albumin 3.2 L Urine Protein Urine Glucose (UA) Urine Ketones Ur Blood (Man) Urine Nitrate Urine Bilirubin Urine Urobilinogen Leukocyte Esterase Rfl Urine WBC Urine Bacteria Urine Yeast (Budding) 06/16/25 08:07 RBC Hgb Hct MCHC RDW Plt Count MPV Neut % (Auto) Lymph % (Auto) [place] % (Auto) [place] # (Auto) Abs Immat Gran (auto) Absolute Neuts (auto) Absolute Nucleated RBC PT APTT 122.3 H D-Dimer ABG pH ABG pCO2 ABG pO2 ABG HCO3 ABG O2 Saturation ABG O2 Content Chloride Carbon Dioxide Anion Gap BUN Creatinine Estimated GFR Glucose Lactic Acid Magnesium Total Bilirubin AST ALT Troponin I C-Reactive Protein NT-Pro-B Natriuret Pep Total Protein Albumin Urine Protein Urine Glucose (UA) Urine Ketones Ur Blood (Man) Urine Nitrate Urine Bilirubin Urine Urobilinogen Leukocyte Esterase Rfl Urine WBC Urine Bacteria Urine Yeast (Budding) Diagnostic Findings Additional studies: ITS Impressions Chest X-Ray 06/11/25 20:44 IMPRESSION: 1. Perihilar and lower lung predominant indistinctness opacities consistent with mild pulmonary edema. 2. Small left pleural effusion with associated left basilar atelectasis and/or pneumonia. 3. Indeterminate 3 x 2 cm masslike opacity in the right hilar region which could represent an enlarged pulmonary artery in the setting of pulmonary hypertension, hilar or pulmonary mass or right hilar lymphadenopathy. Recommend follow-up chest CT with contrast for further evaluation. Head CT 06/11/25 21:02 IMPRESSION: 1. Normal aging brain. No fracture or acute intracranial process. Cervical Spine CT 06/11/25 21:05 IMPRESSION: 1. Degenerative skeletal changes as detailed above. No acute osseous abnormality. 2. Incompletely visualized at least small left pleural effusion. Chest/Abdomen/Pelvis CTA 06/12/25 07:59 IMPRESSION: 1. Small right and moderate-sized left pleural effusions. 2. No pulmonary embolus. 3. Small volume of perihepatic ascites. 4. Heterogeneous liver enhancement, consistent with passive hepatic congestion. Venous Doppler Study 06/12/25 09:59 IMPRESSION: 1. Left-sided DVT detailed above. Right-sided superficial thrombophlebitis Chest X-Ray 06/14/25 09:14 IMPRESSION: 1. Developing edema and/or airspace disease right lung. 2. Persistent left pleural effusion with complete lower lobe atelectasis and airspace consolidation. Chest X-Ray 06/16/25 08:57
--- NOTE | 2025-06-16 14:18 | PCRCNOTE ---
Faxed Carli ward progress notes, ABG to Timmy at [facility] for AVAPS unit for use in home once D/C from SNF. Awaiting order form from [facility].
--- NOTE | 2025-06-16 14:23 | PM.IMPN ---
Progress Note: A&P Assessment and Plan (1) Pneumonia: Code(s): J18.9 - Pneumonia, unspecified organism Status: Acute Assessment and Plan: CXR from 06/14/25 showed RLL pnuemonia Patient started back on Rocephin, Doxycycline and Flagyl Monitor cultures (2) Acute heart failure: Code(s): I50.9 - Heart failure, unspecified Status: Acute Assessment and Plan: Right heart failure Presented with fall and SOB CT chest showed bilateral pleural effusion ECHO showed normal LVF, with right heart failure and pulm hypertension Hold Lasix, Now on Acetazolamide, continue Jardiance cardiology following (3) Hypertension: Qualifiers: Hypertension type: primary hypertension Qualified Code(s): I10 - Essential (primary) hypertension Code(s): I10 - Essential (primary) hypertension Status: Acute Assessment and Plan: Blood pressure is 111/57 -lisinopril currently on hold due to the acute kidney injury -continue with metoprolol -continued for a mental (4) Major depressive disorder, single episode, in partial remission: Code(s): F32.4 - Major depressive disorder, single episode, in partial remission Status: Acute Assessment and Plan: -continue duloxetine (5) LILY (acute kidney injury): Code(s): N17.9 - Acute kidney failure, unspecified Status: Acute Assessment and Plan: likely cardiorenal . -lisinopril is on hold. Cr 1.1 from 1.49 on [id number] bid, monitor (6) UTI (urinary tract infection): Code(s): N39.0 - Urinary tract infection, site not specified Status: Acute Assessment and Plan: -the patient is currently on Rocephin -blood cultures are pending -Urine culture positive for GNB Ceftriaxone (7) Fall: Code(s): W19.XXXA - Unspecified fall, initial encounter Status: Acute Assessment and Plan: -the patient stated that she was weak and fell and laid on the floor for 2 days. -acute care assistant evaluation greatly be appreciated for possible rehab -PT OT evaluation currently be appreciated. Plan LLE DVT Venous doppler showed left sided DVT ON Heparin infusion, will switch to DOAC prior to discharge Monitor Acute hypoxemic resp failure Worsening OHS vs Right heart failure/Pulm hypertension vs Pneumonia CXR this morning showed RLL consolidation ECHO reviewed Rocephin, doxycycline and Flagyl Continue diuresis on HFNC now, will continue AVAPS at environmental monitoring technician closely Discussed with pulmonology and patiet nwill need ongoing nighttime BiPAP/AVAPS DVT prophylaxis on heparin infusion Subjective Date/time seen: 06/16/25 14:23 Interval history: Comfortable at bedside Still on AVAPS Review of Systems Constitutional: Constitutional: Reports as per HPI and Reports no additional constitutional complaints Eyes: Eyes: Reports as per HPI and Reports no additional eye complaints ENT: Reports system reviewed and no additional complaints, except as documented and Reports Normal hearing present Cardiovascular: Cardiovascular: Reports no additional cardiovascular complaints Respiratory: Respiratory: Reports as per HPI and Reports no additional respiratory complaints Gastrointestinal: Gastrointestinal: Reports as per HPI and Reports no additional gastrointestinal complaints Genitourinary: Genitourinary: Reports no additional female genitourinary complaints Musculoskeletal: Musculoskeletal: Reports no additional musculoskeletal complaints Integumentary/Breasts: Skin/Breast: Reports system reviewed and no additional complaints, except as docu Neurologic: Reports system reviewed and no additional complaints, except as documented and Reports Normal hearing present Psychiatric: Psychiatric: Reports no additional psychiatric complaints and Reports as per HPI Hematologic/Lymphatic: Hematologic/Lymphatic: Reports no additional hematologic/lymphatic complaints Allergic/Immunologic: Allergic/Immunologic: Reports no additional allergic/immunologic complaints Exam Const: General: cooperative, healthy appearing, comfortable, no acute distress, well developed, awake, Physically active, average body habitus and well nourished Nutritional Appearance: average body habitus and well nourished Orientation/consciousness: oriented to person, oriented to place, oriented to time and patient oriented x3 HENMT: Head: normal to inspection, No palpable skull fracture present, normocephalic, atraumatic and abrasion Ears: hearing grossly normal bilaterally and external ears normal Eyes: General: appearance normal, both eyes and all related structures Alignment and Position: alignment normal Periorbital: periorbital findings normal Eyelids: eyelids normal Pupils: Equal, round and reactive pupils present EOM: EOMs intact bilaterally Neck: Neck: normal visual inspection and full ROM Resp: Effort & Inspection: normal respiratory effort Auscultation: clear to auscultation bilaterally Cardio: Palpation: normal PMI Rate: regular rate Rhythm: regular rhythm Heart sounds: S1 normal heart sound present and S2 normal heart sound present Peripheral pulses: Peripheral pulses 2+ throughout GI: Inspection: normal to inspection Auscultation: normal bowel sounds Rectal Exam: deferred Skin: General skin exam: normal color Lesions: no lesions Rashes: no rashes Trauma: no lacerations or abrasions Wounds: no wounds Hair: normal Nails: normal Neuro: General: oriented to person, oriented to place, oriented to time and patient oriented x3 Cranial nerves: Yes Equal, round and reactive pupils present and Yes Normal hearing present Cognition (Neuro): normal cognition Speech: normal speech Motor exam (neuro): 5/5 motor strength present throughout Sensory Exam: normal sensation Extrem: General: normal to inspection Right upper extremity: normal to inspection and shoulder/upper arm Left upper extremity: normal to inspection and shoulder/upper arm Right lower extremity: normal to inspection Left lower extremity: normal to inspection Psych: Appearance: grossly normal Mental Status: mental status grossly normal Speech and movement: Normal speech and movement present Affect: normal affect Attitude: cooperative Thought process: Normal thought process present Objective Data Vital Signs Vital Signs: Vital Signs - 24 hr 06/15/25 15:57 06/15/25 16:00 06/15/25 16:00 Temperature 98.2 F Pulse Rate 71 79 75 Respiratory Rate 16 18 Blood Pressure 121/63 Pulse Oximetry 93 92 Oxygen Delivery High Flow Therapy with Na Oxygen Flow Rate 30 Fraction of Inspired Oxygen 50 06/15/25 18:00 06/15/25 18:21 06/15/25 20:00 Temperature 97.7 F Pulse Rate 80 78 77 Respiratory Rate 20 20 Blood Pressure 135/60 Pulse Oximetry 95 97 Oxygen Delivery BiPAP Oxygen Flow Rate Fraction of Inspired Oxygen 06/15/25 20:00 06/15/25 20:35 06/15/25 20:35 Temperature Pulse Rate 76 76 76 Respiratory Rate 20 20 Blood Pressure Pulse Oximetry 97 Oxygen Delivery BiPAP Oxygen Flow Rate Fraction of Inspired Oxygen 06/15/25 20:40 06/15/25 20:44 06/15/25 20:50 Temperature Pulse Rate 78 77 Respiratory Rate 23 H 20 Blood Pressure Pulse Oximetry 97 97 Oxygen Delivery BiPAP Oxygen Flow Rate Fraction of Inspired Oxygen 50 06/15/25 21:06 06/15/25 22:00 06/15/25 22:21 Temperature Pulse Rate 74 76 76 Respiratory Rate 23 H Blood Pressure Pulse Oximetry 97 Oxygen Delivery BiPAP Oxygen Flow Rate Fraction of Inspired Oxygen 06/16/25 00:00 06/16/25 00:00 06/16/25 00:03 Temperature 97.7 F Pulse Rate 68 74 68 Respiratory Rate 20 20 Blood Pressure 130/64 Pulse Oximetry 96 96 Oxygen Delivery BiPAP Oxygen Flow Rate Fraction of Inspired Oxygen 50 06/16/25 01:31 06/16/25 02:00 06/16/25 04:00 Temperature 98.9 F Pulse Rate 67 68 65 Respiratory Rate 20 20 Blood Pressure 117/58 L Pulse Oximetry 99 97 Oxygen Delivery BiPAP Oxygen Flow Rate Fraction of Inspired Oxygen 06/16/25 04:00 06/16/25 04:40 06/16/25 04:41 Temperature Pulse Rate 65 63 63 Respiratory Rate 20 20 Blood Pressure Pulse Oximetry 97 98 Oxygen Delivery BiPAP BiPAP Oxygen Flow Rate Fraction of Inspired Oxygen 50 06/16/25 06:00 06/16/25 07:38 06/16/25 08:00 Temperature Pulse Rate 63 72 Respiratory Rate 20 Blood Pressure Pulse Oximetry 96 96 Oxygen Delivery High Flow Therapy with Na High Flow Therapy with Na Oxygen Flow Rate 25 25 Fraction of Inspired Oxygen 40 40 06/16/25 08:00 06/16/25 08:00 06/16/25 08:39 Temperature 97.7 F Pulse Rate 74 73 76 Respiratory Rate 20 20 Blood Pressure 134/74 Pulse Oximetry 100 Oxygen Delivery Oxygen Flow Rate Fraction of Inspired Oxygen 06/16/25 08:43 06/16/25 08:46 06/16/25 09:33 Temperature Pulse Rate 76 77 Respiratory Rate 20 Blood Pressure Pulse Oximetry 97 Oxygen Delivery High Flow Nasal Cannula Oxygen Flow Rate 5 Fraction of Inspired Oxygen 06/16/25 10:00 06/16/25 11:39 06/16/25 12:00 Temperature Pulse Rate 71 78 Respiratory Rate Blood Pressure Pulse Oximetry 96 Oxygen Delivery High Flow Therapy with Na Oxygen Flow Rate 2 Fraction of Inspired Oxygen 06/16/25 12:00 06/16/25 13:55 06/16/25 13:56 Temperature 98.5 F Pulse Rate 73 82 Respiratory Rate 20 20 Blood Pressure 123/88 Pulse Oximetry 97 92 Oxygen Delivery High Flow Nasal Cannula Oxygen Flow Rate 3 Fraction of Inspired Oxygen 06/16/25 13:57 06/16/25 14:11 Temperature Pulse Rate 81 80 Respiratory Rate 20 Blood Pressure Pulse Oximetry Oxygen Delivery Oxygen Flow Rate Fraction of Inspired Oxygen Intake/Output Intake/Output: Intake & Output 09/06/14/25 06/15/25 06/16/25 23:59 23:59 23:59 23:59 Intake Total 1228.5 1436.6 1396.8 478.7 Output Total 9240 975 5280 425 Balance -521.5 886.6 221.8 53.7 Meds/Results Medications: Active Medications Generic Name Dose Route Start Last Admin Trade Name Freq PRN Reason Stop Dose Admin Acetaminophen 650 mg 06/12/25 01:20 Acetaminophen 325 Mg Tablet PO Q4H PRN Mild Pain (1-3) or Fever Albuterol/Ipratropium 3 ml 06/12/25 08:00 06/16/25 13:55 Ipratropium 0.5 Mg/Albuterol Sulfate 2.5 Mg Ampul.Neb 3 Ml INHALATION 3 ml Q6HRT NEIL Administration Duloxetine HCl 60 mg 06/12/25 09:00 06/16/25 08:44 Duloxetine Hcl 60 Mg Capsule.Dr BY MOUTH 60 mg DAILY NEIL Administration Empagliflozin 10 mg 06/13/25 09:00 06/16/25 08:44 Empagliflozin 10 Mg Tablet PO 10 mg DAILY NEIL Administration Fluticasone Propionate 2 spray 06/12/25 09:00 06/16/25 08:49 Fluticasone Propionate 0.05% Na Spr 16 Gm Btl (*Bkc) NASAL 2 spray DAILY NEIL Administration Furosemide 40 mg 06/16/25 09:00 06/16/25 08:44 Furosemide 40 Mg Tablet PO 40 mg BID NEIL Administration Heparin Sodium (Porcine) 6,000 units 06/12/25 10:17 06/14/25 03:30 Heparin Sodium 5,000 Units/Ml Vial IV PUSH 3,000 units PRN PRN Administration aPTT less than 55 seconds Heparin Sodium (Porcine) 3,000 units 06/12/25 10:17 06/16/25 01:09 Heparin Sodium 5,000 Units/Ml Vial IV PUSH 3,000 units PRN PRN Administration aPTT 55 - 70 seconds Ceftriaxone Sodium 1 gm/ 50 mls @ 100 mls/hr 06/12/25 23:00 06/16/25 00:32 Sodium Chloride IVPB Infused Q24H NEIL Infusion Heparin Sodium/Dextrose 25,000 units in 250 mls @ 8 mls/hr 06/12/25 10:20 06/16/25 08:44 Heparin Sodium/D5w 100 Units/Ml IV CONT 800 units/hr .Q24H NEIL 8 mls/hr Protocol Titration 800 UNITS/HR Doxycycline Hyclate 100 mg/ 100 mls @ 100 mls/hr 06/14/25 11:50 06/16/25 08:44 Sodium Chloride IVPB 100 mls/hr Q12HR NEIL Administration Metronidazole 500 mg in 100 mls @ 100 mls/hr 06/14/25 12:00 06/16/25 11:52 Flagyl 500 Mg/Iso Soln 100 Ml IVPB 100 mls/hr Q8H NEIL Administration Magnesium Oxide 400 mg 06/13/25 09:00 06/16/25 08:43 Magnesium Oxide 400 Mg Tablet PO 400 mg DAILY NEIL Administration Metoprolol Succinate 50 mg 06/12/25 21:00 06/16/25 08:43 Metoprolol Succinate Ext Rel 50 Mg Tabcr PO 50 mg Q12HR NEIL Administration Ondansetron HCl 4 mg 06/12/25 01:20 Ondansetron Inj 4 Mg/2 Ml Vial IV PUSH Q4H PRN Nausea Sodium Chloride 10 ml 06/12/25 14:00 06/16/25 11:53 Central Line Flush IV PUSH 10 ml Q8HR NEIL Administration Sodium Chloride 10 ml 06/12/25 12:09 Central Line Flush IV PUSH PRN PRN with TPN bag changes Sodium Chloride 20 ml 06/12/25 12:09 06/16/25 08:00 Central Line Flush IV PUSH 20 ml PRN PRN Administration after blood draws Radiology Results: ITS Impressions Head CT 06/11/25 21:02 IMPRESSION: 1. Normal aging brain. No fracture or acute intracranial process. Cervical Spine CT 06/11/25 21:05 IMPRESSION: 1. Degenerative skeletal changes as detailed above. No acute osseous abnormality. 2. Incompletely visualized at least small left pleural effusion. Chest/Abdomen/Pelvis CTA 06/12/25 07:59 IMPRESSION: 1. Small right and moderate-sized left pleural effusions. 2. No pulmonary embolus. 3. Small volume of perihepatic ascites. 4. Heterogeneous liver enhancement, consistent with passive hepatic congestion. Venous Doppler Study 06/12/25 09:59 IMPRESSION: 1. Left-sided DVT detailed above. Right-sided superficial thrombophlebitis Chest X-Ray 06/16/25 08:57 IMPRESSION: 1. Persistent opacity left lower lung zone consistent with small pleural effusion and associated left basilar atelectasis and/or pneumonia. 2. Right perihilar bronchial wall thickening which could be seen with bronchitis or peribronchial cuffing related mild pulmonary edema. 3. Cardiomegaly. Labs Labs: Laboratory Results - last 24 hr 06/15/25 06/16/25 06/16/25 16:48 00:17 04:49 WBC RBC Hgb Hct MCV MCH MCHC RDW Plt Count MPV Immature Gran % (Auto) Neut % (Auto) Lymph % (Auto) [place] % (Auto) Eos % (Auto) Baso % (Auto) Lymph # (Auto) [place] # (Auto) Eos # (Auto) Baso # (Auto) Abs Immat Gran (auto) Absolute Neuts (auto) Absolute Nucleated RBC Nucleated RBC % % Immature Plt Fraction APTT 106.0 H 64.4 H Puncture Site Left radial ABG pH 7.348 L ABG pCO2 65.0 H* ABG pO2 126.9 H ABG PO2/FiO2 Ratio 2.54 ABG HCO3 34.9 H ABG O2 Saturation 98.3 ABG O2 Content 19.5 ABG Base Excess 7.0 A-a Gradient 156.5 Oxyhemoglobin 97.4 Carboxyhemoglobin 1.2 Methemoglobin 0.2 Reduced Hemoglobin 1.2 Total Hemoglobin 14.1 O2 Delivery Device Bipap O2 Liters/Min Not Reportable FiO2 50 Expiratory Pressure 5 Inspiratory Pressure Not Reportable Sodium Potassium Chloride Carbon Dioxide Anion Gap BUN Creatinine Estim Creat Clear Calc Estimated GFR Glucose Lactic Acid Calcium Magnesium Total Bilirubin AST ALT Alkaline Phosphatase C-Reactive Protein NT-Pro-B Natriuret Pep Total Protein Albumin Procalcitonin 06/16/25 06/16/25 06/16/25 06:27 08:07 08:08 WBC 6.7 RBC 4.42 Hgb 12.7 Hct 43.6 MCV 98.6 MCH 28.7 MCHC 29.1 L RDW 14.8 H Plt Count 143 L MPV 11.1 H Immature Gran % (Auto) 0.3 Neut % (Auto) 61.4 Lymph % (Auto) 23.4 [place] % (Auto) 10.9 H Eos % (Auto) 3.3 Baso % (Auto) 0.7 Lymph # (Auto) 1.56 [place] # (Auto) 0.7 H Eos # (Auto) 0.2 Baso # (Auto) 0.1 Abs Immat Gran (auto) 0.02 Absolute Neuts (auto) 4.1 Absolute Nucleated RBC 0.000 Nucleated RBC % 0.0 % Immature Plt Fraction 4.8 APTT 122.3 H Puncture Site ABG pH ABG pCO2 ABG pO2 ABG PO2/FiO2 Ratio ABG HCO3 ABG O2 Saturation ABG O2 Content ABG Base Excess A-a Gradient Oxyhemoglobin Carboxyhemoglobin Methemoglobin Reduced Hemoglobin Total Hemoglobin O2 Delivery Device O2 Liters/Min FiO2 Expiratory Pressure Inspiratory Pressure Sodium 137 Potassium 3.9 Chloride 97 L Carbon Dioxide 38 H Anion Gap 2 L BUN 24 H Creatinine 1.13 H Estim Creat Clear Calc 51 Estimated GFR 47 L Glucose 97 Lactic Acid 0.7 Calcium 8.6 Magnesium 1.7 Total Bilirubin 0.5 AST 23 ALT 16 Alkaline Phosphatase 43 C-Reactive Protein 1.7 H NT-Pro-B Natriuret Pep 5300 H Total Protein 5.8 L Albumin 3.2 L Procalcitonin 0.1 Quality VTE Prophylaxis VTE prophylaxis: mechanical ordered
[2025-06-16 15:16] LABS: Partial Thromboplastin Time 51.3 Seconds (22.3-36.8)
--- NOTE | 2025-06-16 15:42 | PCOTNOTE ---
Attempted to see Patient for OT treatment session. Patient sitting upright in the bedside chair. Patient refused to participate and states 2 therapies in 1 day is to much, I did therapy already and no more for today. Patient stated she wont promise to do it tomorrow but come back and try.
[2025-06-16 23:22] LABS: Partial Thromboplastin Time 146.7 Seconds (22.3-36.8)
[2025-06-17] VITALS (21 sets, daily range): BP systolic 116–144; BP diastolic 52–78; PULSE 76–90; RESP 18–22; TEMP 36.1–36.9; O2SAT 90–100
[2025-06-17] MEDS: IPRATROPIUM 0.5 MG/ALBUTEROL SULFATE 2.5 MG AMPUL.NEB 3 ML INHALATION ×4 (02:10→21:54)
--- NOTE | 2025-06-17 02:17 | PCRCNOTE ---
Patient took BIPAP off and refused to put it back on at 0140.
[2025-06-17] MEDS: metroNIDAZOLE 500 MG/ISO 100ML 500 MG/100 ML BAG 100 MG IVPB (04:07)
[2025-06-17] MEDS: CENTRAL LINE FLUSH 10 ML IV PUSH ×3 (05:52→21:10)
[2025-06-17 06:28] LABS: Hematocrit 43.5 % (37.0-47.0); Hemoglobin 12.9 g/dL (12.0-15.0); Immature Granulocyte Percent A 0.3 % (0-0.5); Immature Platelet Fraction Pct 5.1 % (0.9-11.2); Lymphocytes Absolute Auto 1.40 K/mm3 (0.9-3.2); Mean Corpuscular HGB Conc 29.7 g/dl (32-36); Mean Corpuscular Hemoglobin 29.1 pg (26-34); Mean Corpuscular Volume 98.0 fl (80-100); Nucleated Red Blood Cells Absolute Auto 0.000 K/mm3 (0.0-0.012); Nucleated Red Blood Cells Perc 0.0 % (0.0-0.2); Platelet Count Result 145 k/mm3 (150-375); Red Blood Count 4.44 M/mm3 (4.2-5.4); White Blood Count 7.0 K/mm3 (4.5-10.0)
[2025-06-17 06:38] LABS: Alanine Aminotransferase 17 U/L (6-35); Albumin Level 3.3 g/dL (3.5-5.1); Alkaline Phosphatase 46 U/L (38-126); Anion Gap 3 mmol/L (4-12); Aspartate Amino Transferase 23 U/L (14-36); Bilirubin,Total 0.6 mg/dL (0.2-1.3); Blood Urea Nitrogen 23 mg/dL (7-17); Calcium 8.8 mg/dL (8.4-10.2); Carbon Dioxide 39 mmol/L (22-30); Chloride 96 mmol/L (98-107); Estimated CRCL calculation 53 ml/min; Estimated Glomerular Filt Rate 51; Glucose 91 mg/dL (65-110); Magnesium 1.6 mg/dL (1.6-2.3); Potassium 3.9 mmol/L (3.4-5.0); Sodium 138 mmol/L (137-145); Total Protein 6.1 g/dL (6.3-8.2)
[2025-06-17 06:39] LABS: Partial Thromboplastin Time 81.0 Seconds (22.3-36.8)
--- NOTE | 2025-06-17 07:24 | P.PNIM_ITS ---
Progress Note: A&P Assessment and Plan (1) Pneumonia: Code(s): J18.9 - Pneumonia, unspecified organism Status: Acute Assessment and Plan: CXR from 06/14/25 showed RLL pnuemonia Discontinue Rocephin, Doxycycline and Flagyl Started on Augmentin Monitor cultures (2) Acute heart failure: Code(s): I50.9 - Heart failure, unspecified Status: Acute Assessment and Plan: Right heart failure Presented with fall and SOB CT chest showed bilateral pleural effusion ECHO showed normal LVF, with right heart failure and pulm hypertension Hold Lasix, Now on Acetazolamide, continue Jardiance cardiology following (3) Hypertension: Qualifiers: Hypertension type: primary hypertension Qualified Code(s): I10 - Essential (primary) hypertension Code(s): I10 - Essential (primary) hypertension Status: Acute Assessment and Plan: Blood pressure is 111/57 -lisinopril currently on hold due to the acute kidney injury -continue with metoprolol -continued for a mental (4) Major depressive disorder, single episode, in partial remission: Code(s): F32.4 - Major depressive disorder, single episode, in partial remission Status: Acute Assessment and Plan: -continue duloxetine (5) LILY (acute kidney injury): Code(s): N17.9 - Acute kidney failure, unspecified Status: Acute Assessment and Plan: likely cardiorenal . -lisinopril is on hold. Cr 1.1 from 1.49 on [id number] bid, monitor (6) UTI (urinary tract infection): Code(s): N39.0 - Urinary tract infection, site not specified Status: Acute Assessment and Plan: -the patient is currently on Rocephin -blood cultures are pending -Urine culture positive for GNB -Started on Augmentin (7) Fall: Code(s): W19.XXXA - Unspecified fall, initial encounter Status: Acute Assessment and Plan: -the patient stated that she was weak and fell and laid on the floor for 2 days. -critical care clinical nurse specialist evaluation greatly be appreciated for possible rehab -PT OT evaluation currently be appreciated. Plan LLE DVT Venous doppler showed left sided DVT Discontinued heparin started on Eliquis Monitor Acute hypoxemic resp failure Worsening OHS vs Right heart failure/Pulm hypertension vs Pneumonia CXR this morning showed RLL consolidation ECHO reviewed On Augmentin Continue diuresis on HFNC now, will continue AVAPS at [facility] monitor closely Discussed with pulmonology and patient will need ongoing nighttime BiPAP/AVAPS DVT prophylaxis on heparin infusion Subjective Date/time seen: 06/17/25 07:24 Interval history: No acute events reported. Patient denies any smoking or secondary exposure to smoking. The patient also denies any history of heart disease or CVA. The patient reports that she fell due to a balance issue. The patient may be discharged to an SNF. Blood culture and urine culture were reviewed. Patient started on Augmentin. Regarding the left lower extremity DVT, heparin drip has been stopped and started on Eliquis 10 mg p.o. b.i.d. for 7 days and continue Eliquis 5 mg p.o. b.i.d.. Creatinine improving Exam Const: General: cooperative, healthy appearing, comfortable, no acute distress, well developed, awake, Physically active, average body habitus and well nourished Nutritional Appearance: average body habitus and well nourished Orientation/consciousness: oriented to person, oriented to place, oriented to time and patient oriented x3 HENMT: Head: normal to inspection, No palpable skull fracture present, normocephalic, atraumatic and abrasion Ears: hearing grossly normal bilaterally and external ears normal Eyes: General: appearance normal, both eyes and all related structures Alignment and Position: alignment normal Periorbital: periorbital findings normal Eyelids: eyelids normal Pupils: Equal, round and reactive pupils present EOM: EOMs intact bilaterally Neck: Neck: normal visual inspection and full ROM Resp: Effort & Inspection: normal respiratory effort Auscultation: clear to auscultation bilaterally Cardio: Palpation: normal PMI Rate: regular rate Rhythm: regular rhythm Heart sounds: S1 normal heart sound present and S2 normal heart sound present Peripheral pulses: Peripheral pulses 2+ throughout GI: Inspection: normal to inspection Auscultation: normal bowel sounds Rectal Exam: deferred Skin: General skin exam: normal color Lesions: no lesions Rashes: no rashes Trauma: no lacerations or abrasions Wounds: no wounds Hair: normal Nails: normal Neuro: General: oriented to person, oriented to place, oriented to time and patient oriented x3 Cranial nerves: Yes Equal, round and reactive pupils present and Yes Normal hearing present Cognition (Neuro): normal cognition Speech: normal speech Motor exam (neuro): 5/5 motor strength present throughout Sensory Exam: normal sensation Extrem: General: normal to inspection Right upper extremity: normal to inspection and shoulder/upper arm Left upper extremity: normal to inspection and shoulder/upper arm Right lower extremity: normal to inspection Left lower extremity: normal to inspection Psych: Appearance: grossly normal Mental Status: mental status grossly normal Speech and movement: Normal speech and movement present Affect: normal affect Attitude: cooperative Thought process: Normal thought process present Objective Data Vital Signs Vital Signs: Vital Signs - 24 hr 06/16/25 07:38 06/16/25 08:00 06/16/25 08:00 Temperature 97.7 F Pulse Rate 72 74 Respiratory Rate 20 20 Blood Pressure 134/74 Pulse Oximetry 96 96 100 Oxygen Delivery High Flow Therapy with Na High Flow Therapy with Na Oxygen Flow Rate 25 25 Fraction of Inspired Oxygen 40 40 06/16/25 08:00 06/16/25 08:39 06/16/25 08:43 Temperature Pulse Rate 73 76 76 Respiratory Rate 20 Blood Pressure Pulse Oximetry Oxygen Delivery Oxygen Flow Rate Fraction of Inspired Oxygen 06/16/25 08:46 06/16/25 09:33 06/16/25 10:00 Temperature Pulse Rate 77 71 Respiratory Rate 20 Blood Pressure Pulse Oximetry 97 Oxygen Delivery High Flow Nasal Cannula Oxygen Flow Rate 5 Fraction of Inspired Oxygen 06/16/25 11:39 06/16/25 12:00 06/16/25 12:00 Temperature 98.5 F Pulse Rate 78 73 Respiratory Rate 20 Blood Pressure 123/88 Pulse Oximetry 96 97 Oxygen Delivery High Flow Therapy with Na Oxygen Flow Rate 2 Fraction of Inspired Oxygen 06/16/25 13:55 06/16/25 13:56 06/16/25 13:57 Temperature Pulse Rate 82 81 Respiratory Rate 20 Blood Pressure Pulse Oximetry 92 Oxygen Delivery High Flow Nasal Cannula Oxygen Flow Rate 3 Fraction of Inspired Oxygen 06/16/25 14:11 06/16/25 15:17 06/16/25 16:00 Temperature Pulse Rate 80 76 Respiratory Rate 20 Blood Pressure Pulse Oximetry 91 Oxygen Delivery High Flow Therapy with Na Oxygen Flow Rate 2 Fraction of Inspired Oxygen 06/16/25 16:00 06/16/25 17:35 06/16/25 20:00 Temperature 98.1 F 98.4 F Pulse Rate 74 77 88 Respiratory Rate 18 18 Blood Pressure 144/73 H 132/55 L Pulse Oximetry 99 93 Oxygen Delivery Oxygen Flow Rate Fraction of Inspired Oxygen 06/16/25 20:00 06/16/25 20:00 06/16/25 20:56 Temperature Pulse Rate 87 88 Respiratory Rate 21 H Blood Pressure Pulse Oximetry 91 95 Oxygen Delivery High Flow Therapy with Na BiPAP Oxygen Flow Rate 3 Fraction of Inspired Oxygen 06/16/25 20:56 06/16/25 21:00 06/16/25 21:30 Temperature Pulse Rate 88 85 81 Respiratory Rate 21 H 21 H Blood Pressure Pulse Oximetry Oxygen Delivery Oxygen Flow Rate Fraction of Inspired Oxygen 06/16/25 22:00 06/17/25 00:00 06/17/25 00:00 Temperature 98.5 F Pulse Rate 91 78 Respiratory Rate 20 Blood Pressure 116/54 L Pulse Oximetry 100 100 Oxygen Delivery BiPAP Oxygen Flow Rate 3 Fraction of Inspired Oxygen 06/17/25 00:00 06/17/25 02:00 06/17/25 02:11 Temperature Pulse Rate 76 81 Respiratory Rate Blood Pressure Pulse Oximetry 95 Oxygen Delivery Nasal Cannula Oxygen Flow Rate 3 Fraction of Inspired Oxygen 06/17/25 02:11 06/17/25 02:17 06/17/25 04:00 Temperature 98.2 F Pulse Rate 83 82 82 Respiratory Rate 20 20 18 Blood Pressure 123/52 L Pulse Oximetry 96 Oxygen Delivery Oxygen Flow Rate Fraction of Inspired Oxygen 06/17/25 04:00 06/17/25 04:00 06/17/25 06:00 Temperature Pulse Rate 80 78 Respiratory Rate Blood Pressure Pulse Oximetry 96 Oxygen Delivery High Flow Therapy with Na Oxygen Flow Rate 2 Fraction of Inspired Oxygen 06/17/25 07:23 06/17/25 07:23 Temperature Pulse Rate 77 77 Respiratory Rate 20 Blood Pressure Pulse Oximetry 90 Oxygen Delivery Nasal Cannula Oxygen Flow Rate 2 Fraction of Inspired Oxygen Intake/Output Intake/Output: Intake & Output 06/14/25 06/15/25 06/16/25 06/17/25 23:59 23:59 23:59 23:59 Intake Total 1436.6 1396.8 1854.0 305.5 Output Total 550 1175 2023 700 Balance 886.6 221.8 -171.0 -394.5 Meds/Results Medications: Active Medications Generic Name Dose Route Start Last Admin Trade Name Freq PRN Reason Stop Dose Admin Acetaminophen 650 mg 06/12/25 01:20 Acetaminophen 325 Mg Tablet PO Q4H PRN Mild Pain (1-3) or Fever Albuterol/Ipratropium 3 ml 06/12/25 08:00 06/17/25 07:21 Ipratropium 0.5 Mg/Albuterol Sulfate 2.5 Mg Ampul.Neb 3 Ml INHALATION 3 ml Q6HRT NEIL Administration Duloxetine HCl 60 mg 06/12/25 09:00 06/16/25 08:44 Duloxetine Hcl 60 Mg Capsule.Dr BY MOUTH 60 mg DAILY NEIL Administration Empagliflozin 10 mg 06/13/25 09:00 06/16/25 08:44 Empagliflozin 10 Mg Tablet PO 10 mg DAILY NEIL Administration Fluticasone Propionate 2 spray 06/12/25 09:00 06/16/25 08:49 Fluticasone Propionate 0.05% Na Spr 16 Gm Btl (*Bkc) NASAL 2 spray DAILY NEIL Administration Furosemide 40 mg 06/16/25 09:00 06/16/25 15:46 Furosemide 40 Mg Tablet PO 40 mg BID NEIL Administration Heparin Sodium (Porcine) 6,000 units 06/12/25 10:17 06/16/25 15:41 Heparin Sodium 5,000 Units/Ml Vial IV PUSH 6,000 units PRN PRN Administration aPTT less than 55 seconds Heparin Sodium (Porcine) 3,000 units 06/12/25 10:17 06/16/25 01:09 Heparin Sodium 5,000 Units/Ml Vial IV PUSH 3,000 units PRN PRN Administration aPTT 55 - 70 seconds Ceftriaxone Sodium 1 gm/ 50 mls @ 100 mls/hr 06/12/25 23:00 06/17/25 00:22 Sodium Chloride IVPB Infused Q24H NEIL Infusion Heparin Sodium/Dextrose 25,000 units in 250 mls @ 0 mls/hr 06/12/25 10:20 06/17/25 07:00 Heparin Sodium/D5w 100 Units/Ml IV CONT 900 units/hr .Q0M NEIL 9 mls/hr Protocol Titration Doxycycline Hyclate 100 mg/ 100 mls @ 100 mls/hr 06/14/25 11:50 06/16/25 22:30 Sodium Chloride IVPB Infused Q12HR NEIL Infusion Metronidazole 500 mg in 100 mls @ 100 mls/hr 06/14/25 12:00 06/17/25 05:07 Flagyl 500 Mg/Iso Soln 100 Ml IVPB Infused Q8H NEIL Infusion Magnesium Oxide 400 mg 06/13/25 09:00 06/16/25 08:43 Magnesium Oxide 400 Mg Tablet PO 400 mg DAILY NEIL Administration Metoprolol Succinate 50 mg 06/12/25 21:00 06/16/25 21:30 Metoprolol Succinate Ext Rel 50 Mg Tabcr PO 50 mg Q12HR NEIL Administration Ondansetron HCl 4 mg 06/12/25 01:20 Ondansetron Inj 4 Mg/2 Ml Vial IV PUSH Q4H PRN Nausea Sodium Chloride 10 ml 06/12/25 14:00 06/17/25 05:52 Central Line Flush IV PUSH 10 ml Q8HR NEIL Administration Sodium Chloride 10 ml 06/12/25 12:09 Central Line Flush IV PUSH PRN PRN with TPN bag changes Sodium Chloride 20 ml 06/12/25 12:09 06/16/25 08:00 Central Line Flush IV PUSH 20 ml PRN PRN Administration after blood draws Radiology Results: ITS Impressions Head CT 06/11/25 21:02 IMPRESSION: 1. Normal aging brain. No fracture or acute intracranial process. Cervical Spine CT 06/11/25 21:05 IMPRESSION: 1. Degenerative skeletal changes as detailed above. No acute osseous abnormality. 2. Incompletely visualized at least small left pleural effusion. Chest/Abdomen/Pelvis CTA 06/12/25 07:59 IMPRESSION: 1. Small right and moderate-sized left pleural effusions. 2. No pulmonary embolus. 3. Small volume of perihepatic ascites. 4. Heterogeneous liver enhancement, consistent with passive hepatic congestion. Venous Doppler Study 06/12/25 09:59 IMPRESSION: 1. Left-sided DVT detailed above. Right-sided superficial thrombophlebitis Chest X-Ray 06/16/25 08:57 IMPRESSION: 1. Persistent opacity left lower lung zone consistent with small pleural effusion and associated left basilar atelectasis and/or pneumonia. 2. Right perihilar bronchial wall thickening which could be seen with bronchitis or peribronchial cuffing related mild pulmonary edema. 3. Cardiomegaly. Labs Labs: Laboratory Results - last 24 hr 06/16/25 06/16/25 06/16/25 06:27 08:07 08:08 WBC 6.7 RBC 4.42 Hgb 12.7 Hct 43.6 MCV 98.6 MCH 28.7 MCHC 29.1 L RDW 14.8 H Plt Count 143 L MPV 11.1 H Immature Gran % (Auto) 0.3 Neut % (Auto) 61.4 Lymph % (Auto) 23.4 [place] % (Auto) 10.9 H Eos % (Auto) 3.3 Baso % (Auto) 0.7 Lymph # (Auto) 1.56 [place] # (Auto) 0.7 H Eos # (Auto) 0.2 Baso # (Auto) 0.1 Abs Immat Gran (auto) 0.02 Absolute Neuts (auto) 4.1 Absolute Nucleated RBC 0.000 Nucleated RBC % 0.0 % Immature Plt Fraction 4.8 APTT 122.3 H Sodium 137 Potassium 3.9 Chloride 97 L Carbon Dioxide 38 H Anion Gap 2 L BUN 24 H Creatinine 1.13 H Estim Creat Clear Calc 51 Estimated GFR 47 L Glucose 97 Lactic Acid Calcium 8.6 Magnesium 1.7 Total Bilirubin 0.5 AST 23 ALT 16 Alkaline Phosphatase 43 C-Reactive Protein 1.7 H NT-Pro-B Natriuret Pep 5300 H Total Protein 5.8 L Albumin 3.2 L Procalcitonin 0.1 06/16/25 06/16/25 06/17/25 14:47 22:18 06:16 WBC RBC Hgb Hct MCV MCH MCHC RDW Plt Count MPV Immature Gran % (Auto) Neut % (Auto) Lymph % (Auto) [place] % (Auto) Eos % (Auto) Baso % (Auto) Lymph # (Auto) [place] # (Auto) Eos # (Auto) Baso # (Auto) Abs Immat Gran (auto) Absolute Neuts (auto) Absolute Nucleated RBC Nucleated RBC % % Immature Plt Fraction APTT 51.3 H 146.7 H 81.0 H Sodium 138 Potassium 3.9 Chloride 96 L Carbon Dioxide 39 H Anion Gap 3 L BUN 23 H Creatinine 1.07 H Estim Creat Clear Calc 53 Estimated GFR 51 L Glucose 91 Lactic Acid 0.7 Calcium 8.8 Magnesium 1.6 Total Bilirubin 0.6 AST 23 ALT 17 Alkaline Phosphatase 46 C-Reactive Protein NT-Pro-B Natriuret Pep Total Protein 6.1 L Albumin 3.3 L Procalcitonin Hospitalist MIPS Advance Care Plan I have confirmed that the patient's Advanced Care Plan is present, code status is documented, or surrogate decision maker is listed in patient medical record.: Yes Medication Reconciliation I have utilized all available resources to obtain, update and review the patients current medications (includes all prescriptions, OTC, herbals, cannabis, and nutritional supplements).: Yes
--- NOTE | 2025-06-17 08:28 | PM.PNPUL ---
Progress Note: A&P Assessment and Plan (1) Obesity hypoventilation syndrome: Code(s): E66.2 - Morbid (severe) obesity with alveolar hypoventilation Status: Acute Assessment and Plan: Patient with morbid obesity, BMI 52.3, CT scan with no evidence of emphysema, interstitial lung disease. Presented with a high BNP that is improved with diuresis, normal thyroid function. ABG on presentation was 7.36/57/77. ABG on noninvasive ventilation with AVAPS mode with 7.34/75/87. Patient has obesity hypoventilation syndrome and will benefit from noninvasive ventilation to prevent further deterioration and subsequent hospitalization. She did not tolerate BiPAP. 06/13/25: patient was started on noninvasive ventilation with a BiPAP mode but had difficulty with pressures of 14/7 and low tidal volumes of 215. patient was placed on noninvasive ventilation with the AVAPS mode and settings adjusted for comfort with a rate of 14, tidal volume 500, EPAP 5, minimal inspiratory pressure 6, maximal inspiratory pressure 25 and 50% FiO2. 06/15/2025: Patient wore the noninvasive ventilation with the AVAPS mode as above with an ABG prior to removal of 7.34/75/89. 06/16/25: Patient said she wore the hospital noninvasive ventilation with the AVAPS rate of 20, tidal volume 550, EPAP 5, minimal spur favian pressure 6, maximum inspiratory pressure 25, inspiratory time 1.0, rise of 3 and 50% FiO2. She said she was able to sleep with this mask on and felt as she did well. Patient had an overnight oximetry on these settings with recording duration of 9 hours and 14 minutes, average saturation 96%, low saturation 91%, time with saturation less than or equal to 88% was 0 minutes, oxygen desaturation index 0.6. ABG prior to removal 7.35/65/127. plan: Current noninvasive ventilation with the AVAPS mode provide improved ventilation and will not try to increase her rate or tidal volume any more at this time. Overnight oximetry with adequate oxygenation. I will repeat overnight oximetry tonight on 36% FiO2. patient to be discharged to a facility and will inform care coordination that she will need an AVAPS unit on discharge to a facility. If she is scheduled to go to a SNF and then home we will initiate home noninvasive ventilation so this can be arranged when she is discharged from the SNF. 06/17/25: Overall the patient tells me she is breathing the same as yesterday. She has some shortness of breath. She denies fever, phlegm or hemoptysis. Patient was on 2 L nasal cannula saturations 95%. I decreased her to 1 L and her saturations were 92%. She is afebrile. White blood cell count 7.0, creatinine 1.07, PTT 81. Yesterday she diuresed 171 mL and since admission she has diuresed 857 mL. her weight today is 123.2. Patient attempted to wear the hospital AVAPS with full face mask and per nursing reports she only were this a few minutes. Per RT report and charting it looks like she wore for 2-3 hours. Patient says she had to take the mask off because it made her feel claustrophobic. Plan: Patient with poor tolerance. She denied that the air was being delivered in an uncomfortable way and said that she felt claustrophobic with the mask. Will continue to try to have the patient wear noninvasive ventilation with the AVAPS mode and 36% FiO2 tonight. Will perform overnight oximetry if she can tolerate the machine. patient should be discharged to SNF facility that can provide noninvasive ventilation with the AVAPS mode. 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 agree with as aggressive diuresis as tolerated and currently patient is on Lasix 40 [address]i.d.. Discussed with Dr. Way, will follow with you. (2) Left femoral vein DVT: Code(s): I82.412 - Acute embolism and thrombosis of left femoral vein Status: Acute Assessment and Plan: patient with a negative CT angiogram of the chest on 06/11/2025. On 06/12 she had a left femoral vein DVT and right superficial greater saphenous DVT. 06/16/2025: Patient has no bleeding on IV heparin, would switch to an oral anticoagulant that her insurance would cover. 06/17/2025: Patient with no active bleeding on IV heparin. Plan: Will switch to an oral anticoagulant that her sugars will cover. Subjective Date/time seen: 06/17/25 08:28 Interval history: 06/16/2025: This is a new pulmonary consult for chronic hypercarbic respiratory failure. 70-year-old with a history of hypertension, osteoarthritis, morbid obesity Patient presented on 06/12/2025 after she had fallen and then on the floor for 2 days. In the emergency department her blood pressure was 182/102, heart rate 96, respirations 24, saturations on room air were 79%. On 6 L her saturations were 93%. White blood cell count was 8.3, hemoglobin 17.6, BUN 48, creatinine 1.49, serum bicarbonate 31. BNP was 94500, troponin was 0.069, repeat 0.70. COVID influenza RSV RT PCR negative, D-dimer 3.35. TSH 2.060. CT angiogram of the chest was negative for PE, moderate left and small right pleural effusion, pulmonary congestion, edema of the body wall. Patient was treated with IV Lasix, ceftriaxone and azithromycin and bronchodilators. Regarding her baseline patient can only walk across the room. She is a never smoker but was exposed to secondhand smoke from both of her parents and secondhand smoke until 20 years ago. 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 she denies asthma, COPD or recurrent pneumonias. 06/12/2025 ABG on 4 L 7.36/57/77. Echocardiogram with LVEF 50-55%, normal diastolic function, RV severely dilated with decreased function, right atrium moderately enlarged, moderate tricuspid regurg with PASP of 50. Of note on 01/16/2024 patient had normal RV size and function, normal right atrial size and a PASP of 11. Patient had a left femoral DVT and right superficial greater saphenous DVT. 06/13/25: patient was started on noninvasive ventilation with a BiPAP mode but had difficulty with pressures of 14/7 and low tidal volumes of 215. patient was placed on noninvasive ventilation with the AVAPS mode and settings adjusted for comfort with a rate of 14, tidal volume 500, EPAP 5, minimal inspiratory pressure 6, maximal inspiratory pressure 25 and 50% FiO2. 06/15/2025: Patient wore the noninvasive ventilation with the AVAPS mode as above with an ABG prior to removal of 7.34/75/89. Nocturnal AVAPS settings were changed to a rate of 20 and a tidal volume of 550. Free T4 0.92. 06/16/2025: Patient says she is improved since admission and feels she is 60% back to her baseline. She says that her swelling is improved. She has no phlegm or no hemoptysis. She is afebrile. White blood cell count 6.7, creatinine 1.13, [place] [address] on 06/11/2025 to a value of 5300 today. Procalcitonin is unchanged from 06/15/2025 at 0.1 and remains 0.1 today. CRP is 1.7. Yesterday she is positive 221 mL. Currently she is -328 mL since admission. Her weight today is 125.5 kg with an admission weight of 118.1 kg. Chest x-ray today with retrocardiac consolidation, perihilar congestion. No change from 06/14/2025. Patient said she wore the hospital noninvasive ventilation with the AVAPS rate of 20, tidal volume 550, EPAP 5, minimal spur favian pressure 6, maximum inspiratory pressure 25, inspiratory time 1.0, rise of 3 and 50% FiO2. She said she was able to sleep with this mask on and felt as she did well. Patient had an overnight oximetry on these settings with recording duration of 9 hours and 14 minutes, average saturation 96%, low saturation 91%, time with saturation less than or equal to 88% was 0 minutes, oxygen desaturation index 0.6. ABG prior to removal 7.35/65/127. 06/17/25: Overall the patient tells me she is breathing the same as yesterday. She has some shortness of breath. She denies fever, phlegm or hemoptysis. Patient was on 2 L nasal cannula saturations 95%. I decreased her to 1 L and her saturations were 92%. She is afebrile. White blood cell count 7.0, creatinine 1.07, PTT 81. Yesterday she diuresed 171 mL and since admission she has diuresed 857 mL. her weight today is 123.2. Patient attempted to wear the hospital AVAPS with full face mask and per nursing reports she only were this a few minutes. Per RT report and charting it looks like she wore for 2-3 hours. Patient says she had to take the mask off because it made her feel claustrophobic. DATA: 06/16/25: EXAMINATION: XR chest 1V portable INDICATION: Pneumonia TECHNIQUE: frontal view of the chest was obtained. COMPARISON: Chest radiograph dated 06/14/2025 FINDINGS: Right upper extremity peripherally inserted central venous catheter (PICC) tip at the caudal superior vena cava. Persistent opacities in the left lower lung zone which likely includes a small left pleural effusion. Mild bronchial wall thickening most prominent in the right perihilar region. No pneumothorax or right-sided pleural effusion. Cardiomegaly. IMPRESSION: 1. Persistent opacity left lower lung zone consistent with small pleural effusion and associated left basilar atelectasis and/or pneumonia. 2. Right perihilar bronchial wall thickening which could be seen with bronchitis or peribronchial cuffing related mild pulmonary edema. 3. Cardiomegaly. 06/12/25: EXAMINATION: US venous doppler [facility], 06/12/2025 8:45 CDT HISTORY: Elevated D-dimer COMPARISON: None Technique: Manuel-scale and color Doppler images were attempted of the lower saphenofemoral junction, common femoral vein,superficial femoral vein, proximal deep femoral vein, proximal deep femoral vein, popliteal vein and posterior tibial veins. Findings: Deep Venous System: There is thrombus within the left femoral vein with diminished flow compression, the remaining visualized deep venous system is unremarkable Within the superficial right greater saphenous vein there is thrombus with diminished flow Probable complex Mejia's cyst right knee measures 2.3 x 1.7 cm, outpatient MRI is suggested. IMPRESSION: 1. Left-sided DVT detailed above. Right-sided superficial thrombophlebitis 06/11/25: EXAMINATION: CTA chest PE abdomen pel INDICATION: Hypoxia. Abdominal pain. COMPARISON: None. FINDINGS: CTA chest: The lungs demonstrate mild atelectasis with a dependent predominance. There are small right and moderate-sized left pleural effusions. Cardiomegaly is noted. No pericardial effusion. The central pulmonary arteries are enlarged, consistent with pulmonary arterial hypertension. There is no pulmonary embolus. There are bridging endplate osteophytes at multiple levels in the spine, consistent with diffuse idiopathic skeletal hyperostosis (DISH). CT abdomen and pelvis: There is heterogeneous liver enhancement, consistent with passive hepatic congestion. The spleen is normal. There are gallstones in the gallbladder, which is normal in size. The pancreas and adrenal glands are normal. 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 There are no dilated loops of bowel. The appendix is normal. There are no pathologically enlarged lymph nodes. There is no free intraperitoneal fluid. Body wall edema is noted. There is severe lumbar spondylosis. IMPRESSION: 1. Small right and moderate-sized left pleural effusions. 2. No pulmonary embolus. 3. Small volume of perihepatic ascites. 4. Heterogeneous liver enhancement, consistent with passive hepatic congestion. 06/12/25: Echo Summary 1. Technically suboptimal study due to poor sonographic images. 2. Definity contrast administered improved wall motion interpretation. 3. Left ventricular chamber dimension is normal. 4. D shape ventricular septum during systole suggest right pressure overload. 5. Left ventricular systolic function is preserved, estimated at 50-55. 6. There is moderate concentric increased left ventricular wall thickness. 7. The left ventricular diastolic function is normal. 8. Right ventricular chamber dimension is severely enlarged. 9. Right ventricular systolic function is significantly reduced with abnormal TAPSE 1.1 cm. 10. Right atrial chamber dimension is moderately enlarged. 11. There is mild aortic valve sclerosis. 12. There is moderate tricuspid valve regurgitation. 13. Moderate pulmonary hypertension, estimated pulmonary arterial systolic pressure is 50 mmHg. 14. There is trivial pericardial effusion. Summary 1. Technically suboptimal study due to poor sonographic images. 2. Contrast administered improved wall motion interpretation. 3. Left ventricular chamber dimension is normal. 4. Left ventricular systolic function is normal, estimated at 65-70%. 5. There is moderate concentric increased left ventricular wall thickness. 6. The left ventricular diastolic function is grade I diastolic dysfunction. 7. E/e' 8 is minimally elevated. 8. No pulmonary hypertension, estimated pulmonary arterial systolic pressure is 11 mmHg. Right Ventricle Right ventricular systolic function is normal and with normal TAPSE 2.7 cm. Right ventricular chamber dimension is normal. Right Atria Right atrial chamber dimension is normal. Review of Systems Constitutional: Constitutional: Reports no additional constitutional complaints Eyes: Eyes: Reports no additional eye complaints ENT: Reports system reviewed and no additional complaints, except as documented Cardiovascular: Cardiovascular: Reports no additional cardiovascular complaints Respiratory: Respiratory: Reports no additional respiratory complaints Gastrointestinal: Gastrointestinal: Reports no additional gastrointestinal complaints Musculoskeletal: Musculoskeletal: Reports no additional musculoskeletal complaints Neurologic: Reports system reviewed and no additional complaints, except as documented Psychiatric: Psychiatric: Reports no additional psychiatric complaints Endocrine: Endocrine: Reports no additional endocrine complaints Hematologic/Lymphatic: Hematologic/Lymphatic: Reports no additional hematologic/lymphatic complaints Allergic/Immunologic: Allergic/Immunologic: Reports no additional allergic/immunologic complaints Exam Const: General: cooperative, healthy appearing and comfortable Orientation/consciousness: oriented to person, oriented to place and oriented to time Other: morbid obesity HENMT: Head: normal to inspection Ears: hearing grossly normal bilaterally Eyes: General: appearance normal, both eyes and all related structures Neck: Neck: normal visual inspection Chest: Chest palpation & inspection: normal inspection of the chest Resp: Effort & Inspection: normal respiratory effort and able to speak in complete sentences Auscultation: no crackles, no rales, no rhonchi, no wheezes and diminished lung sounds Other: Obesity Cardio: Jugular venous distension: no JVD GI: Inspection: normal to inspection Skin: General skin exam: normal color Neuro: General: oriented to person, oriented to place and oriented to time Extrem: General: normal to inspection and no edema Psych: Appearance: grossly normal Objective Data Vital Signs Vital Signs: Vital Signs - 24 hr 06/16/25 08:39 06/16/25 08:43 06/16/25 08:46 Temperature Pulse Rate 76 76 77 Respiratory Rate 20 20 Blood Pressure Pulse Oximetry Oxygen Delivery Oxygen Flow Rate 06/16/25 09:33 06/16/25 10:00 06/16/25 11:39 Temperature Pulse Rate 71 Respiratory Rate Blood Pressure Pulse Oximetry 97 96 Oxygen Delivery High Flow Nasal Cannula High Flow Therapy with Na Oxygen Flow Rate 5 2 06/16/25 12:00 06/16/25 12:00 06/16/25 13:55 Temperature 36.9 C Pulse Rate 78 73 Respiratory Rate 20 Blood Pressure 123/88 Pulse Oximetry 97 92 Oxygen Delivery High Flow Nasal Cannula Oxygen Flow Rate 3 06/16/25 13:56 06/16/25 13:57 06/16/25 14:11 Temperature Pulse Rate 82 81 80 Respiratory Rate 20 20 Blood Pressure Pulse Oximetry Oxygen Delivery Oxygen Flow Rate 06/16/25 15:17 06/16/25 16:00 06/16/25 16:00 Temperature 36.7 C Pulse Rate 76 74 Respiratory Rate 18 Blood Pressure 144/73 H Pulse Oximetry 91 99 Oxygen Delivery High Flow Therapy with Na Oxygen Flow Rate 2 06/16/25 17:35 06/16/25 20:00 06/16/25 20:00 Temperature 36.9 C Pulse Rate 77 88 Respiratory Rate 18 Blood Pressure 132/55 L Pulse Oximetry 93 91 Oxygen Delivery High Flow Therapy with Na Oxygen Flow Rate 3 06/16/25 20:00 06/16/25 20:56 06/16/25 20:56 Temperature Pulse Rate 87 88 88 Respiratory Rate 21 H 21 H Blood Pressure Pulse Oximetry 95 Oxygen Delivery BiPAP Oxygen Flow Rate 06/16/25 21:00 06/16/25 21:30 06/16/25 22:00 Temperature Pulse Rate 85 81 91 Respiratory Rate 21 H Blood Pressure Pulse Oximetry Oxygen Delivery Oxygen Flow Rate 06/17/25 00:00 06/17/25 00:00 06/17/25 00:00 Temperature 36.9 C Pulse Rate 78 76 Respiratory Rate 20 Blood Pressure 116/54 L Pulse Oximetry 100 100 Oxygen Delivery BiPAP Oxygen Flow Rate 3 06/17/25 02:00 06/17/25 02:11 06/17/25 02:11 Temperature Pulse Rate 81 83 Respiratory Rate 20 Blood Pressure Pulse Oximetry 95 Oxygen Delivery Nasal Cannula Oxygen Flow Rate 3 06/17/25 02:17 06/17/25 04:00 06/17/25 04:00 Temperature 36.8 C Pulse Rate 82 82 Respiratory Rate 20 18 Blood Pressure 123/52 L Pulse Oximetry 96 96 Oxygen Delivery High Flow Therapy with Na Oxygen Flow Rate 2 06/17/25 04:00 06/17/25 06:00 06/17/25 07:23 Temperature Pulse Rate 80 78 77 Respiratory Rate Blood Pressure Pulse Oximetry 90 Oxygen Delivery Nasal Cannula Oxygen Flow Rate 2 06/17/25 07:23 06/17/25 07:28 06/17/25 08:10 Temperature 36.8 C Pulse Rate 77 77 79 Respiratory Rate 20 20 22 H Blood Pressure 129/78 Pulse Oximetry 94 Oxygen Delivery Oxygen Flow Rate Intake/Output Intake/Output: Intake & Output 06/14/25 06/15/25 06/16/25 06/17/25 23:59 23:59 23:59 23:59 Intake Total 1436.6 1396.8 1854.0 305.5 Output Total 550 1175 2025 700 Balance 886.6 221.8 -171.0 -394.5 Meds/Results Medications: Active Medications Generic Name Dose Route Start Last Admin Trade Name Freq PRN Reason Stop Dose Admin Acetaminophen 650 mg 06/12/25 01:20 Acetaminophen 325 Mg Tablet PO Q4H PRN Mild Pain (1-3) or Fever Albuterol/Ipratropium 3 ml 06/12/25 08:00 06/17/25 07:21 Ipratropium 0.5 Mg/Albuterol Sulfate 2.5 Mg Ampul.Neb 3 Ml INHALATION 3 ml Q6HRT NEIL Administration Duloxetine HCl 60 mg 06/12/25 09:00 06/16/25 08:44 Duloxetine Hcl 60 Mg Capsule.Dr BY MOUTH 60 mg DAILY NEIL Administration Empagliflozin 10 mg 06/13/25 09:00 06/16/25 08:44 Empagliflozin 10 Mg Tablet PO 10 mg DAILY NEIL Administration Fluticasone Propionate 2 spray 06/12/25 09:00 06/16/25 08:49 Fluticasone Propionate 0.05% Na Spr 16 Gm Btl (*Bkc) NASAL 2 spray DAILY NEIL Administration Furosemide 40 mg 06/16/25 09:00 06/16/25 15:46 Furosemide 40 Mg Tablet PO 40 mg BID NEIL Administration Heparin Sodium (Porcine) 6,000 units 06/12/25 10:17 06/16/25 15:41 Heparin Sodium 5,000 Units/Ml Vial IV PUSH 6,000 units PRN PRN Administration aPTT less than 55 seconds Heparin Sodium (Porcine) 3,000 units 06/12/25 10:17 06/16/25 01:09 Heparin Sodium 5,000 Units/Ml Vial IV PUSH 3,000 units PRN PRN Administration aPTT 55 - 70 seconds Ceftriaxone Sodium 1 gm/ 50 mls @ 100 mls/hr 06/12/25 23:00 06/17/25 00:22 Sodium Chloride IVPB Infused Q24H NEIL Infusion Heparin Sodium/Dextrose 25,000 units in 250 mls @ 0 mls/hr 06/12/25 10:20 06/17/25 07:00 Heparin Sodium/D5w 100 Units/Ml IV CONT 900 units/hr .Q0M NEIL 9 mls/hr Protocol Titration Doxycycline Hyclate 100 mg/ 100 mls @ 100 mls/hr 06/14/25 11:50 06/16/25 22:30 Sodium Chloride IVPB Infused Q12HR NEIL Infusion Magnesium Oxide 400 mg 06/13/25 09:00 06/16/25 08:43 Magnesium Oxide 400 Mg Tablet PO 400 mg DAILY NEIL Administration Metoprolol Succinate 50 mg 06/12/25 21:00 06/16/25 21:30 Metoprolol Succinate Ext Rel 50 Mg Tabcr PO 50 mg Q12HR NEIL Administration Ondansetron HCl 4 mg 06/12/25 01:20 Ondansetron Inj 4 Mg/2 Ml Vial IV PUSH Q4H PRN Nausea Sodium Chloride 10 ml 06/12/25 14:00 06/17/25 05:52 Central Line Flush IV PUSH 10 ml Q8HR NEIL Administration Sodium Chloride 10 ml 06/12/25 12:09 Central Line Flush IV PUSH PRN PRN with TPN bag changes Sodium Chloride 20 ml 06/12/25 12:09 06/16/25 08:00 Central Line Flush IV PUSH 20 ml PRN PRN Administration after blood draws Radiology Results: ITS Impressions Head CT 06/11/25 21:02 IMPRESSION: 1. Normal aging brain. No fracture or acute intracranial process. Cervical Spine CT 06/11/25 21:05 IMPRESSION: 1. Degenerative skeletal changes as detailed above. No acute osseous abnormality. 2. Incompletely visualized at least small left pleural effusion. Chest/Abdomen/Pelvis CTA 06/12/25 07:59 IMPRESSION: 1. Small right and moderate-sized left pleural effusions. 2. No pulmonary embolus. 3. Small volume of perihepatic ascites. 4. Heterogeneous liver enhancement, consistent with passive hepatic congestion. Venous Doppler Study 06/12/25 09:59 IMPRESSION: 1. Left-sided DVT detailed above. Right-sided superficial thrombophlebitis Chest X-Ray 06/16/25 08:57 IMPRESSION: 1. Persistent opacity left lower lung zone consistent with small pleural effusion and associated left basilar atelectasis and/or pneumonia. 2. Right perihilar bronchial wall thickening which could be seen with bronchitis or peribronchial cuffing related mild pulmonary edema. 3. Cardiomegaly. Labs Labs: Laboratory Results - last 24 hr 06/16/25 06/16/25 06/16/25 08:07 08:08 14:47 WBC RBC Hgb Hct MCV MCH MCHC RDW Plt Count MPV Immature Gran % (Auto) Neut % (Auto) Lymph % (Auto) [place] % (Auto) Eos % (Auto) Baso % (Auto) Lymph # (Auto) [place] # (Auto) Eos # (Auto) Baso # (Auto) Abs Immat Gran (auto) Absolute Neuts (auto) Absolute Nucleated RBC Nucleated RBC % % Immature Plt Fraction APTT 122.3 H 51.3 H Sodium Potassium Chloride Carbon Dioxide Anion Gap BUN Creatinine Estim Creat Clear Calc Estimated GFR Glucose Lactic Acid Calcium Magnesium Total Bilirubin AST ALT Alkaline Phosphatase Total Protein Albumin Procalcitonin 0.1 06/16/25 06/17/25 22:18 06:16 WBC 7.0 RBC 4.44 Hgb 12.9 Hct 43.5 MCV 98.0 MCH 29.1 MCHC 29.7 L RDW 15.0 H Plt Count 145 L MPV 10.4 Immature Gran % (Auto) 0.3 Neut % (Auto) 64.5 Lymph % (Auto) 20.1 [place] % (Auto) 11.4 H Eos % (Auto) 3.0 Baso % (Auto) 0.7 Lymph # (Auto) 1.40 [place] # (Auto) 0.8 H Eos # (Auto) 0.2 Baso # (Auto) 0.1 Abs Immat Gran (auto) 0.02 Absolute Neuts (auto) 4.5 Absolute Nucleated RBC 0.000 Nucleated RBC % 0.0 % Immature Plt Fraction 5.1 APTT 146.7 H 81.0 H Sodium 138 Potassium 3.9 Chloride 96 L Carbon Dioxide 39 H Anion Gap 3 L BUN 23 H Creatinine 1.07 H Estim Creat Clear Calc 53 Estimated GFR 51 L Glucose 91 Lactic Acid 0.7 Calcium 8.8 Magnesium 1.6 Total Bilirubin 0.6 AST 23 ALT 17 Alkaline Phosphatase 46 Total Protein 6.1 L Albumin 3.3 L Procalcitonin
[2025-06-17] MEDS: DOXYCYCLINE IV 100 MG in SODIUM CHLORIDE 0.9% IV 100 ML IVPB (08:34)
[2025-06-17] MEDS: FUROSEMIDE 40 MG TABLET PO (08:35)
[2025-06-17] MEDS: EMPAGLIFLOZIN 10 MG TABLET PO (08:35)
[2025-06-17] MEDS: METOPROLOL SUCCINATE EXT REL 50 MG TABCR PO ×2 (08:35→21:09)
[2025-06-17] MEDS: DULoxetine HCL 60 MG CAPSULE.DR BY MOUTH (08:35)
[2025-06-17] MEDS: MAGNESIUM OXIDE 400 MG TABLET PO (08:35)
[2025-06-17] MEDS: FLUTICASONE PROPIONATE 0.05% NA SPR 16 GM BTL (*BKC) 2 SPRAY NASAL (08:36)
[2025-06-17] MEDS: APIXABAN 5 MG TABLET 10 MG PO ×2 (11:25→21:09)
--- NOTE | 2025-06-17 16:45 | PC.NURSE ---
Patient was picking at picc line dressing. Attemping to self remove it. RN educated patient on importance of keeping picc line in place. Patient is only oriented to person at this time. RN changed dressing. Patient not wanting to take 1700 medication at this time.
[2025-06-18] VITALS (18 sets, daily range): BP systolic 152–160; BP diastolic 53–90; PULSE 72–96; RESP 18–20; TEMP 36.4–36.7; O2SAT 81–95
[2025-06-18] MEDS: IPRATROPIUM 0.5 MG/ALBUTEROL SULFATE 2.5 MG AMPUL.NEB 3 ML INHALATION ×2 (01:56→07:26)
[2025-06-18] MEDS: CENTRAL LINE FLUSH 10 ML IV PUSH ×3 (05:10→22:54)
[2025-06-18 05:30] LABS: Hematocrit 45.7 % (37.0-47.0); Hemoglobin 13.4 g/dL (12.0-15.0); Mean Corpuscular HGB Conc 29.3 g/dl (32-36); Mean Corpuscular Hemoglobin 28.8 pg (26-34); Mean Corpuscular Volume 98.3 fl (80-100); Platelet Count Result 147 k/mm3 (150-375); Red Blood Count 4.65 M/mm3 (4.2-5.4); White Blood Count 6.6 K/mm3 (4.5-10.0)
[2025-06-18 05:48] LABS: Alanine Aminotransferase 19 U/L (6-35); Albumin Level 3.5 g/dL (3.5-5.1); Alkaline Phosphatase 45 U/L (38-126); Anion Gap 2 mmol/L (4-12); Aspartate Amino Transferase 34 U/L (14-36); Bilirubin,Total 0.6 mg/dL (0.2-1.3); Blood Urea Nitrogen 22 mg/dL (7-17); Calcium 9.2 mg/dL (8.4-10.2); Carbon Dioxide 39 mmol/L (22-30); Chloride 97 mmol/L (98-107); Estimated CRCL calculation 52 ml/min; Estimated Glomerular Filt Rate 52; Glucose 98 mg/dL (65-110); Potassium 4.3 mmol/L (3.4-5.0); Sodium 138 mmol/L (137-145); Total Protein 6.4 g/dL (6.3-8.2)
[2025-06-18 07:18] LABS: NT Pro B Type Natriuretic Pept 10400 pg/mL (19.9-100)
--- NOTE | 2025-06-18 08:35 | PM.PNPUL ---
Progress Note: A&P Assessment and Plan (1) Obesity hypoventilation syndrome: Code(s): E66.2 - Morbid (severe) obesity with alveolar hypoventilation Status: Acute Assessment and Plan: Patient with morbid obesity, BMI 52.3, CT scan with no evidence of emphysema, interstitial lung disease. Presented with a high BNP that is improved with diuresis, normal thyroid function. ABG on presentation was 7.36/57/77. ABG on noninvasive ventilation with AVAPS mode with 7.34/75/87. Patient has obesity hypoventilation syndrome with chronic hypercarbic respiratory failure and will benefit from noninvasive ventilation to prevent further deterioration and subsequent hospitalization. She did not tolerate BiPAP. 06/13/25: patient was started on noninvasive ventilation with a BiPAP mode but had difficulty with pressures of 14/7 and low tidal volumes of 215. patient was placed on noninvasive ventilation with the AVAPS mode and settings adjusted for comfort with a rate of 14, tidal volume 500, EPAP 5, minimal inspiratory pressure 6, maximal inspiratory pressure 25 and 50% FiO2. 06/15/2025: Patient wore the noninvasive ventilation with the AVAPS mode as above with an ABG prior to removal of 7.34/75/89. 06/16/25: Patient said she wore the hospital noninvasive ventilation with the AVAPS rate of 20, tidal volume 550, EPAP 5, minimal spur favian pressure 6, maximum inspiratory pressure 25, inspiratory time 1.0, rise of 3 and 50% FiO2. She said she was able to sleep with this mask on and felt as she did well. Patient had an overnight oximetry on these settings with recording duration of 9 hours and 14 minutes, average saturation 96%, low saturation 91%, time with saturation less than or equal to 88% was 0 minutes, oxygen desaturation index 0.6. ABG prior to removal 7.35/65/127. plan: Current noninvasive ventilation with the AVAPS mode provide improved ventilation and will not try to increase her rate or tidal volume any more at this time. Overnight oximetry with adequate oxygenation. I will repeat overnight oximetry tonight on 36% FiO2. patient to be discharged to a facility and will inform care coordination that she will need an AVAPS unit on discharge to a facility. If she is scheduled to go to a SNF and then home we will initiate home noninvasive ventilation so this can be arranged when she is discharged from the SNF. 06/17/25: Overall the patient tells me she is breathing the same as yesterday. She has some shortness of breath. She denies fever, phlegm or hemoptysis. Patient was on 2 L nasal cannula saturations 95%. I decreased her to 1 L and her saturations were 92%. She is afebrile. White blood cell count 7.0, creatinine 1.07, PTT 81. Yesterday she diuresed 171 mL and since admission she has diuresed 857 mL. her weight today is 123.2. Patient attempted to wear the hospital AVAPS with full face mask and per nursing reports she only were this a few minutes. Per RT report and charting it looks like she wore for 2-3 hours. Patient says she had to take the mask off because it made her feel claustrophobic. Plan: Patient with poor tolerance. She denied that the air was being delivered in an uncomfortable way and said that she felt claustrophobic with the mask. Will continue to try to have the patient wear noninvasive ventilation with the AVAPS mode and 36% FiO2 tonight. Will perform overnight oximetry if she can tolerate the machine. patient should be discharged to SNF facility that can provide noninvasive ventilation with the AVAPS mode. Will discuss with respiratory therapy executive officer special warfare team initiating machine for home after She is discharged from the SNF facility. agree with as aggressive diuresis as tolerated and currently patient is on Lasix 40 p.o. b.i.d.. Later in day: I completed a noninvasive ventilator order request through via [employer]: Respiratory rate 20, tidal volume 550, minimal EPAP 5, maximal EPAP 15, minimal pressure support 6, maximal pressure support 25 and 4 L bleed in. 06/18/2025: Patient states she is slowly improving. She still feels weak. She says she has shortness of breath at rest. She has not done any walking in a number of weeks since her fall. She denies cough, phlegm hemoptysis. When I enter the room she was on 2 L nasal cannula saturations 97%. I decreased her to 1 L and her saturations were 91%. White blood cell count 6.6, creatinine 1.04, BNP 76727. Yesterday she diuresed 534 mL, cumulative diuresis since admission 1.0 L. Her weight is 116.4 kg. Patient did not wear the hospital noninvasive ventilator. respiratory therapy note says that she refused. The patient tells me she was never hooked up. The daytime nursing shift got no signed out from the night team. Patient tells me she will wear the machine tonight. Plan: Will have the patient wear the hospital noninvasive ventilator with 36% FiO2 and perform an overnight oximetry. If the patient refuses to wear the hospital noninvasive ventilator will perform own overnight oximetry on 4 L nasal cannula. Agree with continued diuresis, currently on Lasix 40 p.o. b.i.d.. Discussed with Dr. Way, will follow with you. (2) Left femoral vein DVT: Code(s): I82.412 - Acute embolism and thrombosis of left femoral vein Status: Acute Assessment and Plan: patient with a negative CT angiogram of the chest on 06/11/2025. On 06/12 she had a left femoral vein DVT and right superficial greater saphenous DVT. 06/16/2025: Patient has no bleeding on IV heparin, would switch to an oral anticoagulant that her insurance would cover. 06/17/2025: Patient with no active bleeding on IV heparin. Plan: Will switch to an oral anticoagulant that her sugars will cover. Later in the day the patient was started on Eliquis 10 Q 12. 06/18: patient now on Eliquis anticoagulation. Subjective Date/time seen: 06/18/25 08:35 Interval history: 06/16/2025: This is a new pulmonary consult for chronic hypercarbic respiratory failure. 70-year-old with a history of hypertension, osteoarthritis, morbid obesity Patient presented on 06/12/2025 after she had fallen and then on the floor for 2 days. In the emergency department her blood pressure was 182/102, heart rate 96, respirations 24, saturations on room air were 79%. On 6 L her saturations were 93%. White blood cell count was 8.3, hemoglobin 17.6, BUN 48, creatinine 1.49, serum bicarbonate 31. BNP was 45684, troponin was 0.069, repeat 0.70. COVID influenza RSV RT PCR negative, D-dimer 3.35. TSH 2.060. CT angiogram of the chest was negative for PE, moderate left and small right pleural effusion, pulmonary congestion, edema of the body wall. Patient was treated with IV Lasix, ceftriaxone and azithromycin and bronchodilators. Regarding her baseline patient can only walk across the room. She is a never smoker but was exposed to secondhand smoke from both of her parents and secondhand smoke until 20 years ago. 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 she denies asthma, COPD or recurrent pneumonias. 06/12/2025 ABG on 4 L 7.36/57/77. Echocardiogram with LVEF 50-55%, normal diastolic function, RV severely dilated with decreased function, right atrium moderately enlarged, moderate tricuspid regurg with PASP of 50. Of note on 01/16/2024 patient had normal RV size and function, normal right atrial size and a PASP of 11. Patient had a left femoral DVT and right superficial greater saphenous DVT. 06/13/25: patient was started on noninvasive ventilation with a BiPAP mode but had difficulty with pressures of 14/7 and low tidal volumes of 215. patient was placed on noninvasive ventilation with the AVAPS mode and settings adjusted for comfort with a rate of 14, tidal volume 500, EPAP 5, minimal inspiratory pressure 6, maximal inspiratory pressure 25 and 50% FiO2. 06/15/2025: Patient wore the noninvasive ventilation with the AVAPS mode as above with an ABG prior to removal of 7.. Nocturnal AVAPS settings were changed to a rate of 20 and a tidal volume of 550. Free T4 0.92. 06/16/2025: Patient says she is improved since admission and feels she is 60% back to her baseline. She says that her swelling is improved. She has no phlegm or no hemoptysis. She is afebrile. White blood cell count 6.7, creatinine 1.13, [place] [address] on 06/11/2025 to a value of 5300 today. Procalcitonin is unchanged from 06/15/2025 at 0.1 and remains 0.1 today. CRP is 1.7. Yesterday she is positive 221 mL. Currently she is -328 mL since admission. Her weight today is 125.5 kg with an admission weight of 118.1 kg. Chest x-ray today with retrocardiac consolidation, perihilar congestion. No change from 06/14/2025. Patient said she wore the hospital noninvasive ventilation with the AVAPS rate of 20, tidal volume 550, EPAP 5, minimal spur favian pressure 6, maximum inspiratory pressure 25, inspiratory time 1.0, rise of 3 and 50% FiO2. She said she was able to sleep with this mask on and felt as she did well. Patient had an overnight oximetry on these settings with recording duration of 9 hours and 14 minutes, average saturation 96%, low saturation 91%, time with saturation less than or equal to 88% was 0 minutes, oxygen desaturation index 0.6. ABG prior to removal 7.35/65/127. 06/17/25: Overall the patient tells me she is breathing the same as yesterday. She has some shortness of breath. She denies fever, phlegm or hemoptysis. Patient was on 2 L nasal cannula saturations 95%. I decreased her to 1 L and her saturations were 92%. She is afebrile. White blood cell count 7.0, creatinine 1.07, PTT 81. Yesterday she diuresed 171 mL and since admission she has diuresed 857 mL. her weight today is 123.2.IV heparin stopped and apixaban 10 q.12 started. Patient attempted to wear the hospital AVAPS with full face mask and per nursing reports she only were this a few minutes. Per RT report and charting it looks like she wore for 2-3 hours. Patient says she had to take the mask off because it made her feel claustrophobic. Later in day: I completed a noninvasive ventilator order request through via med: Respiratory rate 20, tidal volume 550, minimal EPAP 5, maximal EPAP 15, minimal pressure support 6, maximal pressure support 25 and 4 L bleed in. 06/18/2025: Patient states she is slowly improving. She still feels weak. She says she has shortness of breath at rest. She has not done any walking in a number of weeks since her fall. She denies cough, phlegm hemoptysis. When I enter the room she was on 2 L nasal cannula saturations 97%. I decreased her to 1 L and her saturations were 91%. White blood cell count 6.6, creatinine 1.04, BNP 84796. Yesterday she diuresed 534 mL, cumulative diuresis since admission 1.0 L. Her weight is 116.4 kg. Patient did not wear the hospital noninvasive ventilator. respiratory therapy note says that she refused. The patient tells me she was never hooked up. The daytime nursing shift got no signed out from the night team. Patient tells me she will wear the machine tonight. DATA: 06/16/25: EXAMINATION: XR chest 1V portable INDICATION: Pneumonia TECHNIQUE: frontal view of the chest was obtained. COMPARISON: Chest radiograph dated 06/14/2025 FINDINGS: Right upper extremity peripherally inserted central venous catheter (PICC) tip at the caudal superior vena cava. Persistent opacities in the left lower lung zone which likely includes a small left pleural effusion. Mild bronchial wall thickening most prominent in the right perihilar region. No pneumothorax or right-sided pleural effusion. Cardiomegaly. IMPRESSION: 1. Persistent opacity left lower lung zone consistent with small pleural effusion and associated left basilar atelectasis and/or pneumonia. 2. Right perihilar bronchial wall thickening which could be seen with bronchitis or peribronchial cuffing related mild pulmonary edema. 3. Cardiomegaly. 06/12/25: EXAMINATION: US venous doppler [facility], 06/12/2025 8:45 CDT HISTORY: Elevated D-dimer COMPARISON: None Technique: Manuel-scale and color Doppler images were attempted of the lower saphenofemoral junction, common femoral vein,superficial femoral vein, proximal deep femoral vein, proximal deep femoral vein, popliteal vein and posterior tibial veins. Findings: Deep Venous System: There is thrombus within the left femoral vein with diminished flow compression, the remaining visualized deep venous system is unremarkable Within the superficial right greater saphenous vein there is thrombus with diminished flow Probable complex Mejia's cyst right knee measures 2.3 x 1.7 cm, outpatient MRI is suggested. IMPRESSION: 1. Left-sided DVT detailed above. Right-sided superficial thrombophlebitis 06/11/25: EXAMINATION: CTA chest PE abdomen pel INDICATION: Hypoxia. Abdominal pain. COMPARISON: None. FINDINGS: CTA chest: The lungs demonstrate mild atelectasis with a dependent predominance. There are small right and moderate-sized left pleural effusions. Cardiomegaly is noted. No pericardial effusion. The central pulmonary arteries are enlarged, consistent with pulmonary arterial hypertension. There is no pulmonary embolus. There are bridging endplate osteophytes at multiple levels in the spine, consistent with diffuse idiopathic skeletal hyperostosis (DISH). CT abdomen and pelvis: There is heterogeneous liver enhancement, consistent with passive hepatic congestion. The spleen is normal. There are gallstones in the gallbladder, which is normal in size. The pancreas and adrenal glands are normal. 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 There are no dilated loops of bowel. The appendix is normal. There are no pathologically enlarged lymph nodes. There is no free intraperitoneal fluid. Body wall edema is noted. There is severe lumbar spondylosis. IMPRESSION: 1. Small right and moderate-sized left pleural effusions. 2. No pulmonary embolus. 3. Small volume of perihepatic ascites. 4. Heterogeneous liver enhancement, consistent with passive hepatic congestion. 06/12/25: Echo Summary 1. Technically suboptimal study due to poor sonographic images. 2. Definity contrast administered improved wall motion interpretation. 3. Left ventricular chamber dimension is normal. 4. D shape ventricular septum during systole suggest right pressure overload. 5. Left ventricular systolic function is preserved, estimated at 50-55. 6. There is moderate concentric increased left ventricular wall thickness. 7. The left ventricular diastolic function is normal. 8. Right ventricular chamber dimension is severely enlarged. 9. Right ventricular systolic function is significantly reduced with abnormal TAPSE 1.1 cm. 10. Right atrial chamber dimension is moderately enlarged. 11. There is mild aortic valve sclerosis. 12. There is moderate tricuspid valve regurgitation. 13. Moderate pulmonary hypertension, estimated pulmonary arterial systolic pressure is 50 mmHg. 14. There is trivial pericardial effusion. Summary 1. Technically suboptimal study due to poor sonographic images. 2. Contrast administered improved wall motion interpretation. 3. Left ventricular chamber dimension is normal. 4. Left ventricular systolic function is normal, estimated at 65-70%. 5. There is moderate concentric increased left ventricular wall thickness. 6. The left ventricular diastolic function is grade I diastolic dysfunction. 7. E/e' 8 is minimally elevated. 8. No pulmonary hypertension, estimated pulmonary arterial systolic pressure is 11 mmHg. Right Ventricle Right ventricular systolic function is normal and with normal TAPSE 2.7 cm. Right ventricular chamber dimension is normal. Right Atria Right atrial chamber dimension is normal. Review of Systems Constitutional: Constitutional: Reports no additional constitutional complaints Eyes: Eyes: Reports no additional eye complaints ENT: Reports system reviewed and no additional complaints, except as documented Cardiovascular: Cardiovascular: Reports no additional cardiovascular complaints Respiratory: Respiratory: Reports no additional respiratory complaints Gastrointestinal: Gastrointestinal: Reports no additional gastrointestinal complaints Musculoskeletal: Musculoskeletal: Reports no additional musculoskeletal complaints Neurologic: Reports system reviewed and no additional complaints, except as documented Psychiatric: Psychiatric: Reports no additional psychiatric complaints Endocrine: Endocrine: Reports no additional endocrine complaints Hematologic/Lymphatic: Hematologic/Lymphatic: Reports no additional hematologic/lymphatic complaints Allergic/Immunologic: Allergic/Immunologic: Reports no additional allergic/immunologic complaints Exam Const: General: cooperative, healthy appearing and comfortable Orientation/consciousness: oriented to person, oriented to place and oriented to time Other: morbid obesity HENMT: Head: normal to inspection Ears: hearing grossly normal bilaterally Eyes: General: appearance normal, both eyes and all related structures Neck: Neck: normal visual inspection Chest: Chest palpation & inspection: normal inspection of the chest Resp: Effort & Inspection: normal respiratory effort and able to speak in complete sentences Auscultation: no crackles, no rales, no rhonchi, no wheezes and diminished lung sounds Other: Obesity Cardio: Jugular venous distension: no JVD GI: Inspection: normal to inspection Skin: General skin exam: normal color Neuro: General: oriented to person, oriented to place and oriented to time Extrem: General: normal to inspection and no edema Psych: Appearance: grossly normal Objective Data Vital Signs Vital Signs: Vital Signs - 24 hr 06/17/25 10:00 06/17/25 12:00 06/17/25 13:53 Temperature Pulse Rate 79 82 88 Respiratory Rate 20 Blood Pressure Pulse Oximetry Oxygen Delivery Oxygen Flow Rate 06/17/25 13:59 06/17/25 16:00 06/17/25 16:00 Temperature 36.8 C Pulse Rate 85 87 85 Respiratory Rate 20 18 Blood Pressure 144/76 H Pulse Oximetry 93 Oxygen Delivery Oxygen Flow Rate 06/17/25 20:00 06/17/25 21:09 06/17/25 21:56 Temperature Pulse Rate 84 87 Respiratory Rate Blood Pressure Pulse Oximetry 90 Oxygen Delivery Nasal Cannula Oxygen Flow Rate 2 06/17/25 21:56 06/17/25 22:01 06/17/25 22:27 Temperature 36.1 C L Pulse Rate 89 90 86 Respiratory Rate 20 20 20 Blood Pressure 129/72 Pulse Oximetry 93 Oxygen Delivery Oxygen Flow Rate 06/18/25 00:00 06/18/25 01:57 06/18/25 02:04 Temperature Pulse Rate 85 83 85 Respiratory Rate 20 18 Blood Pressure Pulse Oximetry Oxygen Delivery Oxygen Flow Rate 06/18/25 04:00 06/18/25 05:03 06/18/25 07:27 Temperature 36.7 C Pulse Rate 78 82 Respiratory Rate 20 Blood Pressure 160/84 H Pulse Oximetry 92 92 Oxygen Delivery Nasal Cannula Oxygen Flow Rate 2 06/18/25 07:27 06/18/25 07:36 Temperature Pulse Rate 80 78 Respiratory Rate 18 18 Blood Pressure Pulse Oximetry Oxygen Delivery Oxygen Flow Rate Intake/Output Intake/Output: Intake & Output 06/15/25 06/16/25 06/17/25 06/18/25 23:59 23:59 23:59 23:59 Intake Total 1396.8 1854.0 1265.5 250 Output Total 1175 2025 1800 350 Balance 221.8 -171.0 -534.5 -100 Meds/Results Medications: Active Medications Generic Name Dose Route Start Last Admin Trade Name Freq PRN Reason Stop Dose Admin Acetaminophen 650 mg 06/12/25 01:20 Acetaminophen 325 Mg Tablet PO Q4H PRN Mild Pain (1-3) or Fever Albuterol/Ipratropium 3 ml 06/12/25 08:00 06/18/25 07:26 Ipratropium 0.5 Mg/Albuterol Sulfate 2.5 Mg Ampul.Neb 3 Ml INHALATION 3 ml Q6HRT NEIL Administration Amoxicillin/Clavulanate Potassium 1 tablet 06/17/25 21:00 06/17/25 21:09 Amoxicillin/Clavulanate K 875-125 Mg Tab PO 06/24/25 20:59 1 tablet Q12HR NEIL Administration Apixaban 10 mg 06/17/25 11:00 06/17/25 21:09 Apixaban 5 Mg Tablet PO 06/21/25 22:00 10 mg Q12HR NEIL Administration Apixaban 5 mg 06/22/25 09:00 Apixaban 5 Mg Tablet PO Q12HR NEIL Duloxetine HCl 60 mg 06/12/25 09:00 06/17/25 08:35 Duloxetine Hcl 60 Mg Capsule.Dr BY MOUTH 60 mg DAILY NEIL Administration Empagliflozin 10 mg 06/13/25 09:00 06/17/25 08:35 Empagliflozin 10 Mg Tablet PO 10 mg DAILY NEIL Administration Fluticasone Propionate 2 spray 06/12/25 09:00 06/17/25 08:36 Fluticasone Propionate 0.05% Na Spr 16 Gm Btl (*Bkc) NASAL 2 spray DAILY NEIL Administration Furosemide 40 mg 06/16/25 09:00 06/17/25 16:30 Furosemide 40 Mg Tablet PO Not Given BID NEIL Magnesium Oxide 400 mg 06/13/25 09:00 06/17/25 08:35 Magnesium Oxide 400 Mg Tablet PO 400 mg DAILY NEIL Administration Metoprolol Succinate 50 mg 06/12/25 21:00 06/17/25 21:09 Metoprolol Succinate Ext Rel 50 Mg Tabcr PO 50 mg Q12HR NEIL Administration Ondansetron HCl 4 mg 06/12/25 01:20 Ondansetron Inj 4 Mg/2 Ml Vial IV PUSH Q4H PRN Nausea Sodium Chloride 10 ml 06/12/25 14:00 06/18/25 05:10 Central Line Flush IV PUSH 10 ml Q8HR NEIL Administration Sodium Chloride 10 ml 06/12/25 12:09 Central Line Flush IV PUSH PRN PRN with TPN bag changes Sodium Chloride 20 ml 06/12/25 12:09 06/16/25 08:00 Central Line Flush IV PUSH 20 ml PRN PRN Administration after blood draws Radiology Results: ITS Impressions Head CT 06/11/25 21:02 IMPRESSION: 1. Normal aging brain. No fracture or acute intracranial process. Cervical Spine CT 06/11/25 21:05 IMPRESSION: 1. Degenerative skeletal changes as detailed above. No acute osseous abnormality. 2. Incompletely visualized at least small left pleural effusion. Chest/Abdomen/Pelvis CTA 06/12/25 07:59 IMPRESSION: 1. Small right and moderate-sized left pleural effusions. 2. No pulmonary embolus. 3. Small volume of perihepatic ascites. 4. Heterogeneous liver enhancement, consistent with passive hepatic congestion. Venous Doppler Study 06/12/25 09:59 IMPRESSION: 1. Left-sided DVT detailed above. Right-sided superficial thrombophlebitis Chest X-Ray 06/16/25 08:57 IMPRESSION: 1. Persistent opacity left lower lung zone consistent with small pleural effusion and associated left basilar atelectasis and/or pneumonia. 2. Right perihilar bronchial wall thickening which could be seen with bronchitis or peribronchial cuffing related mild pulmonary edema. 3. Cardiomegaly. Labs Labs: Laboratory Results - last 24 hr 06/18/25 05:05 WBC 6.6 RBC 4.65 Hgb 13.4 Hct 45.7 MCV 98.3 MCH 28.8 MCHC 29.3 L RDW 15.0 H Plt Count 147 L MPV 11.1 H Sodium 138 Potassium 4.3 Chloride 97 L Carbon Dioxide 39 H Anion Gap 2 L BUN 22 H Creatinine 1.04 H Estim Creat Clear Calc 52 Estimated GFR 52 L Glucose 98 Calcium 9.2 Total Bilirubin 0.6 AST 34 ALT 19 Alkaline Phosphatase 45 NT-Pro-B Natriuret Pep 22586 H Total Protein 6.4 Albumin 3.5
[2025-06-18] MEDS: APIXABAN 5 MG TABLET 10 MG PO ×2 (09:50→20:39)
[2025-06-18] MEDS: MAGNESIUM OXIDE 400 MG TABLET PO (09:50)
[2025-06-18] MEDS: EMPAGLIFLOZIN 10 MG TABLET PO (09:50)
[2025-06-18] MEDS: FUROSEMIDE 40 MG TABLET PO ×2 (09:51→17:10)
[2025-06-18] MEDS: DULoxetine HCL 60 MG CAPSULE.DR BY MOUTH (09:51)
[2025-06-18] MEDS: METOPROLOL SUCCINATE EXT REL 50 MG TABCR PO ×2 (09:52→20:39)
--- NOTE | 2025-06-18 15:22 | P.PNIM_ITS ---
Progress Note: A&P Assessment and Plan (1) Pneumonia: Code(s): J18.9 - Pneumonia, unspecified organism Status: Acute Assessment and Plan: CXR from 06/14/25 showed RLL pnuemonia Discontinue Rocephin, Doxycycline and Flagyl DC Augmentin Monitor cultures (2) Acute heart failure: Code(s): I50.9 - Heart failure, unspecified Status: Acute Assessment and Plan: Right heart failure Presented with fall and SOB CT chest showed bilateral pleural effusion ECHO showed normal LVF, with right heart failure and pulm hypertension Hold Lasix, Now on Acetazolamide, continue Jardiance cardiology following (3) Hypertension: Qualifiers: Hypertension type: primary hypertension Qualified Code(s): I10 - Essential (primary) hypertension Code(s): I10 - Essential (primary) hypertension Status: Acute Assessment and Plan: Blood pressure is 111/57 -lisinopril currently on hold due to the acute kidney injury -continue with metoprolol -continued for a mental (4) Major depressive disorder, single episode, in partial remission: Code(s): F32.4 - Major depressive disorder, single episode, in partial remission Status: Acute Assessment and Plan: -continue duloxetine (5) LILY (acute kidney injury): Code(s): N17.9 - Acute kidney failure, unspecified Status: Acute Assessment and Plan: likely cardiorenal . -lisinopril is on hold. Cr 1.1 from 1.49 on [id number] bid, monitor (6) UTI (urinary tract infection): Code(s): N39.0 - Urinary tract infection, site not specified Status: Acute Assessment and Plan: -the patient is currently on Rocephin -blood cultures are pending -Urine culture positive for GNB -Started on Augmentin (7) Fall: Code(s): W19.XXXA - Unspecified fall, initial encounter Status: Acute Assessment and Plan: -the patient stated that she was weak and fell and laid on the floor for 2 days. -managed care specialist evaluation greatly be appreciated for possible rehab -PT OT evaluation currently be appreciated. Plan LLE DVT Venous doppler showed left sided DVT Discontinued heparin started on Eliquis Monitor Acute hypoxemic resp failure Worsening OHS vs Right heart failure/Pulm hypertension vs Pneumonia CXR this morning showed RLL consolidation ECHO reviewed Continue diuresis on HFNC now, will continue AVAPS at secured entrance monitor closely Discussed with pulmonology and patient will need ongoing nighttime BiPAP/AVAPS DVT prophylaxis on heparin infusion Subjective Date/time seen: 06/18/25 15:22 Interval history: No acute events overnight. As per nursing team patient denies using NIV during night. Patient reports that she will try today. Exam Const: General: cooperative, healthy appearing, comfortable, no acute distress, well developed, awake, Physically active, average body habitus and well nourished Nutritional Appearance: average body habitus and well nourished Orientation/consciousness: oriented to person, oriented to place, oriented to time and patient oriented x3 HENMT: Head: normal to inspection, No palpable skull fracture present, nor mocephalic, atraumatic and abrasion Ears: hearing grossly normal bilaterally and external ears normal Eyes: General: appearance normal, both eyes and all related structures Alignment and Position: alignment normal Periorbital: periorbital findings normal Eyelids: eyelids normal Pupils: Equal, round and reactive pupils present EOM: EOMs intact bilaterally Neck: Neck: normal visual inspection and full ROM Resp: Effort & Inspection: normal respiratory effort Auscultation: clear to auscultation bilaterally Cardio: Palpation: normal PMI Rate: regular rate Rhythm: regular rhythm Heart sounds: S1 normal heart sound present and S2 normal heart sound present Peripheral pulses: Peripheral pulses 2+ throughout GI: Inspection: normal to inspection Auscultation: normal bowel sounds Rectal Exam: deferred Skin: General skin exam: normal color Lesions: no lesions Rashes: no rashes Trauma: no lacerations or abrasions Wounds: no wounds Hair: normal Nails: normal Neuro: General: oriented to person, oriented to place, oriented to time and patient oriented x3 Cranial nerves: Yes Equal, round and reactive pupils present and Yes Normal hearing present Cognition (Neuro): normal cognition Speech: normal speech Motor exam (neuro): 5/5 motor strength present throughout Sensory Exam: normal sensation Extrem: General: normal to inspection Right upper extremity: normal to inspection and shoulder/upper arm Left upper extremity: normal to inspection and shoulder/upper arm Right lower extremity: normal to inspection Left lower extremity: normal to inspection Psych: Appearance: grossly normal Mental Status: mental status grossly normal Speech and movement: Normal speech and movement present Affect: normal affect Attitude: cooperative Thought process: Normal thought process present Objective Data Vital Signs Vital Signs: Vital Signs - 24 hr 06/17/25 16:00 06/17/25 16:00 06/17/25 20:00 Temperature 98.2 F Pulse Rate 87 85 84 Respiratory Rate 18 Blood Pressure 144/76 H Pulse Oximetry 93 Oxygen Delivery Oxygen Flow Rate 06/17/25 21:09 06/17/25 21:56 06/17/25 21:56 Temperature Pulse Rate 87 89 Respiratory Rate 20 Blood Pressure Pulse Oximetry 90 Oxygen Delivery Nasal Cannula Oxygen Flow Rate 2 06/17/25 22:01 06/17/25 22:27 06/18/25 00:00 Temperature 97 F L Pulse Rate 90 86 85 Respiratory Rate 20 20 Blood Pressure 129/72 Pulse Oximetry 93 Oxygen Delivery Oxygen Flow Rate 06/18/25 01:57 06/18/25 02:04 06/18/25 04:00 Temperature Pulse Rate 83 85 78 Respiratory Rate 20 18 Blood Pressure Pulse Oximetry Oxygen Delivery Oxygen Flow Rate 06/18/25 05:03 06/18/25 07:27 06/18/25 07:27 Temperature 98.1 F Pulse Rate 82 80 Respiratory Rate 20 18 Blood Pressure 160/84 H Pulse Oximetry 92 92 Oxygen Delivery Nasal Cannula Oxygen Flow Rate 2 06/18/25 07:36 06/18/25 08:00 06/18/25 09:25 Temperature Pulse Rate 78 82 79 Respiratory Rate 18 18 Blood Pressure Pulse Oximetry 92 Oxygen Delivery Nasal Cannula Oxygen Flow Rate 1 06/18/25 09:52 06/18/25 13:00 Temperature Pulse Rate 82 86 Respiratory Rate Blood Pressure Pulse Oximetry Oxygen Delivery Oxygen Flow Rate Intake/Output Intake/Output: Intake & Output 06/15/25 06/16/25 06/17/25 06/18/25 23:59 23:59 23:59 23:59 Intake Total 1396.8 1854.0 1265.5 370 Output Total 1175 2025 1800 350 Balance 221.8 -171.0 -534.5 20 Meds/Results Medications: Active Medications Generic Name Dose Route Start Last Admin Trade Name Freq PRN Reason Stop Dose Admin Acetaminophen 650 mg 06/12/25 01:20 Acetaminophen 325 Mg Tablet PO Q4H PRN Mild Pain (1-3) or Fever Apixaban 10 mg 06/17/25 11:00 06/18/25 09:50 Apixaban 5 Mg Tablet PO 06/21/25 22:00 10 mg Q12HR NEIL Administration Apixaban 5 mg 06/22/25 09:00 Apixaban 5 Mg Tablet PO Q12HR [facility] Duloxetine HCl 60 mg 06/12/25 09:00 06/18/25 09:51 Duloxetine Hcl 60 Mg Capsule.Dr BY MOUTH 60 mg DAILY NEIL Administration Empagliflozin 10 mg 06/13/25 09:00 06/18/25 09:50 Empagliflozin 10 Mg Tablet PO 10 mg DAILY NEIL Administration Fluticasone Propionate 2 spray 06/12/25 09:00 06/18/25 09:53 Fluticasone Propionate 0.05% Na Spr 16 Gm Btl (*Bkc) NASAL Not Given DAILY [facility] Furosemide 40 mg 06/16/25 09:00 06/18/25 09:51 Furosemide 40 Mg Tablet PO 40 mg BID NEIL Administration Magnesium Oxide 400 mg 06/13/25 09:00 06/18/25 09:50 Magnesium Oxide 400 Mg Tablet PO 400 mg DAILY [facility] Administration Metoprolol Succinate 50 mg 06/12/25 21:00 06/18/25 09:52 Metoprolol Succinate Ext Rel 50 Mg Tabcr PO 50 mg Q12HR NEIL Administration Ondansetron HCl 4 mg 06/12/25 01:20 Ondansetron Inj 4 Mg/2 Ml Vial IV PUSH Q4H PRN Nausea Sodium Chloride 10 ml 06/12/25 14:00 06/18/25 05:10 Central Line Flush IV PUSH 10 ml Q8HR NEIL Administration Sodium Chloride 10 ml 06/12/25 12:09 Central Line Flush IV PUSH PRN PRN with TPN bag changes Sodium Chloride 20 ml 06/12/25 12:09 06/16/25 08:00 Central Line Flush IV PUSH 20 ml PRN PRN Administration after blood draws Umeclidinium/Vilanterol 1 puff 06/18/25 08:45 06/18/25 15:01 Umeclidinium/Vilanterol 62.5-25 Mcg Ellipta INHALATION Not Given DAILYRT [facility] Radiology Results: ITS Impressions Head CT 06/11/25 21:02 IMPRESSION: 1. Normal aging brain. No fracture or acute intracranial process. Cervical Spine CT 06/11/25 21:05 IMPRESSION: 1. Degenerative skeletal changes as detailed above. No acute osseous abnormality. 2. Incompletely visualized at least small left pleural effusion. Chest/Abdomen/Pelvis CTA 06/12/25 07:59 IMPRESSION: 1. Small right and moderate-sized left pleural effusions. 2. No pulmonary embolus. 3. Small volume of perihepatic ascites. 4. Heterogeneous liver enhancement, consistent with passive hepatic congestion. Venous Doppler Study 06/12/25 09:59 IMPRESSION: 1. Left-sided DVT detailed above. Right-sided superficial thrombophlebitis Chest X-Ray 06/16/25 08:57 IMPRESSION: 1. Persistent opacity left lower lung zone consistent with small pleural effusi on and associated left basilar atelectasis and/or pneumonia. 2. Right perihilar bronchial wall thickening which could be seen with bronchitis or peribronchial cuffing related mild pulmonary edema. 3. Cardiomegaly. Labs Labs: Laboratory Results - last 24 hr 06/18/25 05:05 WBC 6.6 RBC 4.65 Hgb 13.4 Hct 45.7 MCV 98.3 MCH 28.8 MCHC 29.3 L RDW 15.0 H Plt Count 147 L MPV 11.1 H Sodium 138 Potassium 4.3 Chloride 97 L Carbon Dioxide 39 H Anion Gap 2 L BUN 22 H Creatinine 1.04 H Estim Creat Clear Calc 52 Estimated GFR 52 L Glucose 98 Calcium 9.2 Total Bilirubin 0.6 AST 34 ALT 19 Alkaline Phosphatase 45 NT-Pro-B Natriuret Pep 82960 H Total Protein 6.4 Albumin 3.5 Quality VTE Prophylaxis VTE prophylaxis: mechanical ordered Hospitalist MIPS Advance Care Plan I have confirmed that the patient's Advanced Care Plan is present, code status is documented, or surrogate decision maker is listed in patient medical record.: Yes Medication Reconciliation I have utilized all available resources to obtain, update and review the patients current medications (includes all prescriptions, OTC, herbals, cannabis, and nutritional supplements).: Yes
--- NOTE | 2025-06-18 22:48 | PC.NURSE ---
Addendum entered by Ruby Lundy RN 06/18/25 22:59: Dope Maintenance Worker spoke with patient a second time and provided education , patient still verbalized no, its very binding. Original Note: Respiratory set patient up on Avap and within 5 minutes of therapist leaving the room, patient called out and ask for mask to be removed. Patient verbalized no, and take it off.
[2025-06-19 06:40] LABS: Hematocrit 46.2 % (37.0-47.0); Hemoglobin 14.0 g/dL (12.0-15.0); Mean Corpuscular HGB Conc 30.3 g/dl (32-36); Mean Corpuscular Hemoglobin 29.4 pg (26-34); Mean Corpuscular Volume 97.1 fl (80-100); Platelet Count Result 148 k/mm3 (150-375); Red Blood Count 4.76 M/mm3 (4.2-5.4); White Blood Count 6.7 K/mm3 (4.5-10.0)
[2025-06-19 07:00] VITALS: BP 162/85; PULSE 80; RESP 20; TEMP 36.3; O2SAT 92
[2025-06-19 07:00] LABS: Alanine Aminotransferase 22 U/L (6-35); Albumin Level 3.5 g/dL (3.5-5.1); Alkaline Phosphatase 43 U/L (38-126); Aspartate Amino Transferase 40 U/L (14-36); Bilirubin,Total 0.8 mg/dL (0.2-1.3); Blood Urea Nitrogen 20 mg/dL (7-17); Calcium 9.3 mg/dL (8.4-10.2); Chloride 93 mmol/L (98-107); Estimated CRCL calculation 62 ml/min; Estimated Glomerular Filt Rate > 60; Glucose 86 mg/dL (65-110); Potassium 4.2 mmol/L (3.4-5.0); Sodium 135 mmol/L (137-145); Total Protein 6.4 g/dL (6.3-8.2)
[2025-06-19 07:05] LABS: Carbon Dioxide > 40 mmol/L (22-30)
[2025-06-19] MEDS: UMECLIDINIUM/VILANTEROL 62.5-25 MCG ELLIPTA 1 PUFF INHALATION (07:15)
[2025-06-19 08:00] VITALS: O2SAT 92
--- NOTE | 2025-06-19 09:06 | PM.PNPUL ---
Progress Note: A&P Assessment and Plan (1) Obesity hypoventilation syndrome: Code(s): E66.2 - Morbid (severe) obesity with alveolar hypoventilation Status: Acute Assessment and Plan: Patient with morbid obesity, BMI 52.3, CT scan with no evidence of emphysema, interstitial lung disease. Presented with a high BNP that is improved with diuresis, normal thyroid function. ABG on presentation was 7.36/57/77. ABG on noninvasive ventilation with AVAPS mode with 7.34/75/87. Patient has obesity hypoventilation syndrome with chronic hypercarbic respiratory failure and will benefit from noninvasive ventilation to prevent further deterioration and subsequent hospitalization. She did not tolerate BiPAP. 06/13/25: patient was started on noninvasive ventilation with a BiPAP mode but had difficulty with pressures of 14/7 and low tidal volumes of 215. patient was placed on noninvasive ventilation with the AVAPS mode and settings adjusted for comfort with a rate of 14, tidal volume 500, EPAP 5, minimal inspiratory pressure 6, maximal inspiratory pressure 25 and 50% FiO2. 06/15/2025: Patient wore the noninvasive ventilation with the AVAPS mode as above with an ABG prior to removal of 7.34/75/89. 06/16/25: Patient said she wore the hospital noninvasive ventilation with the AVAPS rate of 20, tidal volume 550, EPAP 5, minimal spur favian pressure 6, maximum inspiratory pressure 25, inspiratory time 1.0, rise of 3 and 50% FiO2. She said she was able to sleep with this mask on and felt as she did well. Patient had an overnight oximetry on these settings with recording duration of 9 hours and 14 minutes, average saturation 96%, low saturation 91%, time with saturation less than or equal to 88% was 0 minutes, oxygen desaturation index 0.6. ABG prior to removal 7.35/65/127. plan: Current noninvasive ventilation with the AVAPS mode provide improved ventilation and will not try to increase her rate or tidal volume any more at this time. Overnight oximetry with adequate oxygenation. I will repeat overnight oximetry tonight on 36% FiO2. patient to be discharged to a facility and will inform care coordination that she will need an AVAPS unit on discharge to a facility. If she is scheduled to go to a SNF and then home we will initiate home noninvasive ventilation so this can be arranged when she is discharged from the SNF. 06/17/25: Overall the patient tells me she is breathing the same as yesterday. She has some shortness of breath. She denies fever, phlegm or hemoptysis. Patient was on 2 L nasal cannula saturations 95%. I decreased her to 1 L and her saturations were 92%. She is afebrile. White blood cell count 7.0, creatinine 1.07, PTT 81. Yesterday she diuresed 171 mL and since admission she has diuresed 857 mL. her weight today is 123.2. Patient attempted to wear the hospital AVAPS with full face mask and per nursing reports she only were this a few minutes. Per RT report and charting it looks like she wore for 2-3 hours. Patient says she had to take the mask off because it made her feel claustrophobic. Plan: Patient with poor tolerance. She denied that the air was being delivered in an uncomfortable way and said that she felt claustrophobic with the mask. Will continue to try to have the patient wear noninvasive ventilation with the AVAPS mode and 36% FiO2 tonight. Will perform overnight oximetry if she can tolerate the machine. patient should be discharged to SNF facility that can provide noninvasive ventilation with the AVAPS mode. 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 agree with as aggressive diuresis as tolerated and currently patient is on Lasix 40 p.o. b.i.d.. Later in day: I completed a noninvasive ventilator order request through [facility]: Respiratory rate 20, tidal volume 550, minimal EPAP 5, maximal EPAP 15, minimal pressure support 6, maximal pressure support 25 and 4 L bleed in. 06/18/2025: Patient states she is slowly improving. She still feels weak. She says she has shortness of breath at rest. She has not done any walking in a number of weeks since her fall. She denies cough, phlegm hemoptysis. When I enter the room she was on 2 L nasal cannula saturations 97%. I decreased her to 1 L and her saturations were 91%. White blood cell count 6.6, creatinine 1.04, BNP 29768. Yesterday she diuresed 534 mL, cumulative diuresis since admission 1.0 L. Her weight is 116.4 kg. Patient did not wear the hospital noninvasive ventilator. respiratory therapy note says that she refused. The patient tells me she was never hooked up. The daytime nursing shift got no signed out from the night team. Patient tells me she will wear the machine tonight. Plan: Will have the patient wear the hospital noninvasive ventilator with 36% FiO2 and perform an overnight oximetry. If the patient refuses to wear the hospital noninvasive ventilator will perform own overnight oximetry on 4 L nasal cannula. Agree with continued diuresis, currently on Lasix 40 p.o. b.i.d.. 06/19/25:Is breathing fine. States she is 80% back to her normal. She denies cough, phlegm, hemoptysis. When I enter the room the patient was on 3 L nasal cannula saturations 100%. I decreased her to 1 L nasal cannula her saturations were 93%. White blood cell count 6.7, creatinine 0.85. Yesterday she was positive 120 mL. Cumulative she has diuresed 1.1 L since admission. Her weight today was 114.3 kg. Patient wore the hospital noninvasive ventilator with the AVAPS mode for 10 minutes and then said that she was claustrophobic, and hurt her face but the air delivery was okay. She had an overnight oximetry on 4 L nasal cannula and the nurses note says that at time she took her oxygen off. Recording duration 6 hours and 32 minutes. Average saturation 89%. Low saturation 77%. Time with saturation less than or equal to 88% was 131 minutes and this occurred at 2 distinct times with tracings 90-94% between these episodes. Oxygen desaturation index 2.6. Plan: The patient tells me she will try to wear the AVAPS mode at her SNF facility which is [facility]. She also would like to try to get a home noninvasive ventilator at home after discharge from the SNF facility. Overnight oximetry on 4 L when she is wearing the 4 L her tracing looks acceptable and will continue this at night. From a pulmonary perspective patient is ready to be discharged on these pulmonary medications: Anoro Ellipta 62.5-25 at 1 puff q.day Rescue albuterol 2 puffs q.4 hours p.r.n. shortness of breath or wheezing Apixaban 10 mg p.o. b.i.d. through 06/21 then 5 mg p.o. b.i.d. Diuretics per hospitalist team. Currently she is on Lasix 40 p.o. b.i.d., she has diuresed 1.1 L since admission and her weight is decreased from 118.1 kg on admission to 114.3 kg today. Her BNP remains elevated at 10,400 on 06/18/2025. Follow-up in the Pulmonary Clinic in 4 weeks. 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 She will need outpatient compliance download, PFTs, [address]iscussed with Dr. Way, will sign off, call with questions. (2) Left femoral vein DVT: Code(s): I82.412 - Acute embolism and thrombosis of left femoral vein Status: Acute Assessment and Plan: patient with a negative CT angiogram of the chest on 06/11/2025. On 06/12 she had a left femoral vein DVT and right superficial greater saphenous DVT. 06/16/2025: Patient has no bleeding on IV heparin, would switch to an oral anticoagulant that her insurance would cover. 06/17/2025: Patient with no active bleeding on IV heparin. Plan: Will switch to an oral anticoagulant that her sugars will cover. Later in the day the patient was started on Eliquis 10 Q 12. 06/18: patient now on Eliquis anticoagulation. 06/19: plan: Apixaban 10 mg p.o. b.i.d. through 06/21/2025, then 5 mg p.o. b.i.d. Subjective Date/time seen: 06/19/25 09:06 Interval history: 06/16/2025: This is a new pulmonary consult for chronic hypercarbic respiratory failure. 70-year-old with a history of hypertension, osteoarthritis, morbid obesity Patient presented on 06/12/2025 after she had fallen and then on the floor for 2 days. In the emergency department her blood pressure was 182/102, heart rate 96, respirations 24, saturations on room air were 79%. On 6 L her saturations were 93%. White blood cell count was 8.3, hemoglobin 17.6, BUN 48, creatinine 1.49, serum bicarbonate 31. BNP was 87556, troponin was 0.069, repeat 0.70. COVID influenza RSV RT PCR negative, D-dimer 3.35. TSH 2.060. CT angiogram of the chest was negative for PE, moderate left and small right pleural effusion, pulmonary congestion, edema of the body wall. Patient was treated with IV Lasix, ceftriaxone and azithromycin and bronchodilators. Regarding her baseline patient can only walk across the room. She is a never smoker but was exposed to secondhand smoke from both of her parents and secondhand smoke until 20 years ago. 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 she denies asthma, COPD or recurrent pneumonias. 06/12/2025 ABG on 4 L 7.36/57/77. Echocardiogram with LVEF 50-55%, normal diastolic function, RV severely dilated with decreased function, right atrium moderately enlarged, moderate tricuspid regurg with PASP of 50. Of note on 01/16/2024 patient had normal RV size and function, normal right atrial size and a PASP of 11. Patient had a left femoral DVT and right superficial greater saphenous DVT. 06/13/25: patient was started on noninvasive ventilation with a BiPAP mode but had difficulty with pressures of 14/7 and low tidal volumes of 215. patient was placed on noninvasive ventilation with the AVAPS mode and settings adjusted for comfort with a rate of 14, tidal volume 500, EPAP 5, minimal inspiratory pressure 6, maximal inspiratory pressure 25 and 50% FiO2. 06/15/2025: Patient wore the noninvasive ventilation with the AVAPS mode as above with an ABG prior to removal of 7.34/75/89. Nocturnal AVAPS settings were changed to a rate of 20 and a tidal volume of 550. Free T4 0.92. 06/16/2025: Patient says she is improved since admission and feels she is 60% back to her baseline. She says that her swelling is improved. She has no phlegm or no hemoptysis. She is afebrile. White blood cell count 6.7, creatinine 1.13, BNP [place] [address]270 on 06/11/2025 to a value of 5300 today. Procalcitonin is unchanged from 06/15/2025 at 0.1 and remains 0.1 today. CRP is 1.7. Yesterday she is positive 221 mL. Currently she is -328 mL since admission. Her weight today is 125.5 kg with an admission weight of 118.1 kg. Chest x-ray today with retrocardiac consolidation, perihilar congestion. No change from 06/14/2025. Patient said she wore the hospital noninvasive ventilation with the AVAPS rate of 20, tidal volume 550, EPAP 5, minimal spur favian pressure 6, maximum inspiratory pressure 25, inspiratory time 1.0, rise of 3 and 50% FiO2. She said she was able to sleep with this mask on and felt as she did well. Patient had an overnight oximetry on these settings with recording duration of 9 hours and 14 minutes, average saturation 96%, low saturation 91%, time with saturation less than or equal to 88% was 0 minutes, oxygen desaturation index 0.6. ABG prior to removal 7.35/65/127. 06/17/25: Overall the patient tells me she is breathing the same as yesterday. She has some shortness of breath. She denies fever, phlegm or hemoptysis. Patient was on 2 L nasal cannula saturations 95%. I decreased her to 1 L and her saturations were 92%. She is afebrile. White blood cell count 7.0, creatinine 1.07, PTT 81. Yesterday she diuresed 171 mL and since admission she has diuresed 857 mL. her weight today is 123.2.IV heparin stopped and apixaban 10 q.12 started. Patient attempted to wear the hospital AVAPS with full face mask and per nursing reports she only were this a few minutes. Per RT report and charting it looks like she wore for 2-3 hours. Patient says she had to take the mask off because it made her feel claustrophobic. Later in day: I completed a noninvasive ventilator order request through via [facility]: Respiratory rate 20, tidal volume 550, minimal EPAP 5, maximal EPAP 15, minimal pressure support 6, maximal pressure support 25 and 4 L bleed in. 06/18/2025: Patient states she is slowly improving. She still feels weak. She says she has shortness of breath at rest. She has not done any walking in a number of weeks since her fall. She denies cough, phlegm hemoptysis. When I enter the room she was on 2 L nasal cannula saturations 97%. I decreased her to 1 L and her saturations were 91%. White blood cell count 6.6, creatinine 1.04, BNP 50233. Yesterday she diuresed 534 mL, cumulative diuresis since admission 1.0 L. Her weight is 116.4 kg. Patient did not wear the hospital noninvasive ventilator. respiratory therapy note says that she refused. The patient tells me she was never hooked up. The daytime nursing shift got no signed out from the night team. Patient tells me she will wear the machine tonight. 06/19/25:Is breathing fine. States she is 80% back to her normal. She denies cough, phlegm, hemoptysis. When I enter the room the patient was on 3 L nasal cannula saturations 100%. I decreased her to 1 L nasal cannula her saturations were 93%. White blood cell count 6.7, creatinine 0.85. Yesterday she was positive 120 mL. Cumulative she has diuresed 1.1 L since admission. Her weight today was 114.3 kg. Patient wore the hospital noninvasive ventilator with the AVAPS mode for 10 minutes and then said that she was claustrophobic, and hurt her face but the air delivery was okay. She had an overnight oximetry on 4 L nasal cannula and the nurses note says that at time she took her oxygen off. Recording duration 6 hours and 32 minutes. Average saturation 89%. Low saturation 77%. Time with saturation less than or equal to 88% was 131 minutes and this occurred at 2 distinct times with tracings 90-94% between these episodes. Oxygen desaturation index 2.6. DATA: 06/16/25: EXAMINATION: XR chest 1V portable INDICATION: Pneumonia TECHNIQUE: frontal view of the chest was obtained. COMPARISON: Chest radiograph dated 06/14/2025 FINDINGS: Right upper extremity peripherally inserted central venous catheter (PICC) tip at the caudal superior vena cava. Persistent opacities in the left lower lung zone which likely includes a small left pleural effusion. Mild bronchial wall thickening most prominent in the right perihilar region. No pneumothorax or right-sided pleural effusion. Cardiomegaly. IMPRESSION: 1. Persistent opacity left lower lung zone consistent with small pleural effusion and associated left basilar atelectasis and/or pneumonia. 2. Right perihilar bronchial wall thickening which could be seen with bronchitis or peribronchial cuffing related mild pulmonary edema. 3. Cardiomegaly. 06/12/25: EXAMINATION: US venous doppler TIMI VÁSQUEZ, 06/12/2025 8:45 CDT HISTORY: Elevated D-dimer COMPARISON: None Technique: Manuel-scale and color Doppler images were attempted of the lower saphenofemoral junction, common femoral vein,superficial femoral vein, proximal deep femoral vein, proximal deep femoral vein, popliteal vein and posterior tibial veins. Findings: Deep Venous System: There is thrombus within the left femoral vein with diminished flow compression, the remaining visualized deep venous system is unremarkable Within the superficial right greater saphenous vein there is thrombus with diminished flow Probable complex Mejia's cyst right knee measures 2.3 x 1.7 cm, outpatient MRI is suggested. IMPRESSION: 1. Left-sided DVT detailed above. Right-sided superficial thrombophlebitis 06/11/25: EXAMINATION: CTA chest PE abdomen pel INDICATION: Hypoxia. Abdominal pain. COMPARISON: None. FINDINGS: CTA chest: The lungs demonstrate mild atelectasis with a dependent predominance. There are small right and moderate-sized left pleural effusions. Cardiomegaly is noted. No pericardial effusion. The central pulmonary arteries are enlarged, consistent with pulmonary arterial hypertension. There is no pulmonary embolus. There are bridging endplate osteophytes at multiple levels in the spine, consistent with diffuse idiopathic skeletal hyperostosis (DISH). CT abdomen and pelvis: There is heterogeneous liver enhancement, consistent with passive hepatic congestion. The spleen is normal. There are gallstones in the gallbladder, which is normal in size. The pancreas and adrenal glands are normal. 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 There are no dilated loops of bowel. The appendix is normal. There are no pathologically enlarged lymph nodes. There is no free intraperitoneal fluid. Body wall edema is noted. There is severe lumbar spondylosis. IMPRESSION: 1. Small right and moderate-sized left pleural effusions. 2. No pulmonary embolus. 3. Small volume of perihepatic ascites. 4. Heterogeneous liver enhancement, consistent with passive hepatic congestion. 06/12/25: Echo Summary 1. Technically suboptimal study due to poor sonographic images. 2. Definity contrast administered improved wall motion interpretation. 3. Left ventricular chamber dimension is normal. 4. D shape ventricular septum during systole suggest right pressure overload. 5. Left ventricular systolic function is preserved, estimated at 50-55. 6. There is moderate concentric increased left ventricular wall thickness. 7. The left ventricular diastolic function is normal. 8. Right ventricular chamber dimension is severely enlarged. 9. Right ventricular systolic function is significantly reduced with abnormal TAPSE 1.1 cm. 10. Right atrial chamber dimension is moderately enlarged. 11. There is mild aortic valve sclerosis. 12. There is moderate tricuspid valve regurgitation. 13. Moderate pulmonary hypertension, estimated pulmonary arterial systolic pressure is 50 mmHg. 14. There is trivial pericardial effusion. Summary 1. Technically suboptimal study due to poor sonographic images. 2. Contrast administered improved wall motion interpretation. 3. Left ventricular chamber dimension is normal. 4. Left ventricular systolic function is normal, estimated at 65-70%. 5. There is moderate concentric increased left ventricular wall thickness. 6. The left ventricular diastolic function is grade I diastolic dysfunction. 7. E/e' 8 is minimally elevated. 8. No pulmonary hypertension, estimated pulmonary arterial systolic pressure is 11 mmHg. Right Ventricle Right ventricular systolic function is normal and with normal TAPSE 2.7 cm. Right ventricular chamber dimension is normal. Right Atria Right atrial chamber dimension is normal. Review of Systems Constitutional: Constitutional: Reports no additional constitutional complaints Eyes: Eyes: Reports no additional eye complaints ENT: Reports system reviewed and no additional complaints, except as documented Cardiovascular: Cardiovascular: Reports no additional cardiovascular complaints Respiratory: Respiratory: Reports no additional respiratory complaints Gastrointestinal: Gastrointestinal: Reports no additional gastrointestinal complaints Musculoskeletal: Musculoskeletal: Reports no additional musculoskeletal complaints Neurologic: Reports system reviewed and no additional complaints, except as documented Psychiatric: Psychiatric: Reports no additional psychiatric complaints Endocrine: Endocrine: Reports no additional endocrine complaints Hematologic/Lymphatic: Hematologic/Lymphatic: Reports no additional hematologic/lymphatic complaints Allergic/Immunologic: Allergic/Immunologic: Reports no additional allergic/immunologic complaints Exam Const: General: cooperative, healthy appearing and comfortable Orientation/consciousness: oriented to person, oriented to place and oriented to time Other: morbid obesity HENMT: Head: normal to inspection Ears: hearing grossly normal bilaterally Eyes: General: appearance normal, both eyes and all related structures Neck: Neck: normal visual inspection Chest: Chest palpation & inspection: normal inspection of the chest Resp: Effort & Inspection: normal respiratory effort and able to speak in complete sentences Auscultation: no crackles, no rales, no rhonchi, no wheezes and diminished lung sounds Other: Obesity Cardio: Jugular venous distension: no JVD GI: Inspection: normal to inspection Skin: General skin exam: normal color Neuro: General: oriented to person, oriented to place and oriented to time Extrem: General: normal to inspection and no edema Psych: Appearance: grossly normal Objective Data Vital Signs Vital Signs: Vital Signs - 24 hr 06/18/25 09:25 06/18/25 09:52 06/18/25 13:00 Temperature Pulse Rate 79 82 86 Respiratory Rate Blood Pressure Pulse Oximetry Oxygen Delivery Oxygen Flow Rate Fraction of Inspired Oxygen 06/18/25 16:00 06/18/25 16:40 06/18/25 20:25 Temperature 36.4 C Pulse Rate 87 87 Respiratory Rate 19 Blood Pressure 152/53 H Pulse Oximetry 93 91 Oxygen Delivery Nasal Cannula Oxygen Flow Rate 3 Fraction of Inspired Oxygen 06/18/25 20:39 06/18/25 22:17 06/18/25 22:35 Temperature 36.7 C Pulse Rate 85 85 72 Respiratory Rate 18 20 Blood Pressure 157/90 H Pulse Oximetry 95 94 Oxygen Delivery BiPAP Oxygen Flow Rate Fraction of Inspired Oxygen 06/18/25 22:35 06/18/25 23:00 06/18/25 23:00 Temperature Pulse Rate 72 96 Respiratory Rate Blood Pressure Pulse Oximetry 94 81 L Oxygen Delivery BiPAP Nasal Cannula Nasal Cannula Oxygen Flow Rate 4 Fraction of Inspired Oxygen 36 06/19/25 07:00 Temperature 36.3 C L Pulse Rate 80 Respiratory Rate 20 Blood Pressure 162/85 H Pulse Oximetry 92 Oxygen Delivery Oxygen Flow Rate Fraction of Inspired Oxygen Intake/Output Intake/Output: Intake & Output 06/16/25 06/17/25 06/18/25 06/19/25 23:59 23:59 23:59 23:59 Intake Total 1854.0 1265.5 970 450 Output Total 2024 1800 850 800 Balance -171.0 -534.5 120 -350 Meds/Results Medications: Active Medications Generic Name Dose Route Start Last Admin Trade Name Freq PRN Reason Stop Dose Admin Acetaminophen 650 mg 06/12/25 01:20 Acetaminophen 325 Mg Tablet PO Q4H PRN Mild Pain (1-3) or Fever Apixaban 10 mg 06/17/25 11:00 06/18/25 20:39 Apixaban 5 Mg Tablet PO 06/21/25 22:00 10 mg Q12HR NEIL Administration Apixaban 5 mg 06/22/25 09:00 Apixaban 5 Mg Tablet PO Q12HR NEIL Duloxetine HCl 60 mg 06/12/25 09:00 06/18/25 09:51 Duloxetine Hcl 60 Mg Capsule.Dr BY MOUTH 60 mg DAILY NEIL Administration Empagliflozin 10 mg 06/13/25 09:00 06/18/25 09:50 Empagliflozin 10 Mg Tablet PO 10 mg DAILY NEIL Administration Fluticasone Propionate 2 spray 06/12/25 09:00 06/18/25 09:53 Fluticasone Propionate 0.05% Na Spr 16 Gm Btl (*Bkc) NASAL Not Given DAILY NEIL Furosemide 40 mg 06/16/25 09:00 06/18/25 17:10 Furosemide 40 Mg Tablet PO 40 mg BID NEIL Administration Magnesium Oxide 400 mg 06/13/25 09:00 06/18/25 09:50 Magnesium Oxide 400 Mg Tablet PO 400 mg DAILY NEIL Administration Metoprolol Succinate 50 mg 06/12/25 21:00 06/18/25 20:39 Metoprolol Succinate Ext Rel 50 Mg Tabcr PO 50 mg Q12HR NEIL Administration Ondansetron HCl 4 mg 06/12/25 01:20 Ondansetron Inj 4 Mg/2 Ml Vial IV PUSH Q4H PRN Nausea Sodium Chloride 10 ml 06/12/25 14:00 06/18/25 22:54 Central Line Flush IV PUSH 10 ml Q8HR NEIL Administration Sodium Chloride 10 ml 06/12/25 12:09 Central Line Flush IV PUSH PRN PRN with TPN bag changes Sodium Chloride 20 ml 06/12/25 12:09 06/16/25 08:00 Central Line Flush IV PUSH 20 ml PRN PRN Administration after blood draws Umeclidinium/Vilanterol 1 puff 06/18/25 08:45 06/19/25 07:15 Umeclidinium/Vilanterol 62.5-25 Mcg Ellipta INHALATION 1 puff DAILYRT NEIL Administration Radiology Results: ITS Impressions Head CT 06/11/25 21:02 IMPRESSION: 1. Normal aging brain. No fracture or acute intracranial process. Cervical Spine CT 06/11/25 21:05 IMPRESSION: 1. Degenerative skeletal changes as detailed above. No acute osseous abnormality. 2. Incompletely visualized at least small left pleural effusion. Chest/Abdomen/Pelvis CTA 06/12/25 07:59 IMPRESSION: 1. Small right and moderate-sized left pleural effusions. 2. No pulmonary embolus. 3. Small volume of perihepatic ascites. 4. Heterogeneous liver enhancement, consistent with passive hepatic congestion. Venous Doppler Study 06/12/25 09:59 IMPRESSION: 1. Left-sided DVT detailed above. Right-sided superficial thrombophlebitis Chest X-Ray 06/16/25 08:57 IMPRESSION: 1. Persistent opacity left lower lung zone consistent with small pleural effusion and associated left basilar atelectasis and/or pneumonia. 2. Right perihilar bronchial wall thickening which could be seen with bronchitis or peribronchial cuffing related mild pulmonary edema. 3. Cardiomegaly. Labs Labs: Laboratory Results - last 24 hr 06/19/25 06:10 WBC 6.7 RBC 4.76 Hgb 14.0 Hct 46.2 MCV 97.1 MCH 29.4 MCHC 30.3 L RDW 14.8 H Plt Count 148 L MPV 11.3 H Sodium 135 L Potassium 4.2 Chloride 93 L Carbon Dioxide > 40 H Anion Gap BUN 20 H Creatinine 0.85 Estim Creat Clear Calc 62 Estimated GFR > 60 Glucose 86 Calcium 9.3 Total Bilirubin 0.8 AST 40 H ALT 22 Alkaline Phosphatase 43 Total Protein 6.4 Albumin 3.5
[2025-06-19] MEDS: FUROSEMIDE 40 MG TABLET PO (09:37)
[2025-06-19] MEDS: EMPAGLIFLOZIN 10 MG TABLET PO (09:37)
[2025-06-19] MEDS: MAGNESIUM OXIDE 400 MG TABLET PO (09:37)
[2025-06-19] MEDS: CENTRAL LINE FLUSH 10 ML IV PUSH (09:37)
[2025-06-19] MEDS: APIXABAN 5 MG TABLET 10 MG PO (09:37)
[2025-06-19] MEDS: DULoxetine HCL 60 MG CAPSULE.DR BY MOUTH (09:37)
[2025-06-19 09:38] VITALS: PULSE 82
[2025-06-19] MEDS: FLUTICASONE PROPIONATE 0.05% NA SPR 16 GM BTL (*BKC) 2 SPRAY NASAL (09:38)
[2025-06-19] MEDS: METOPROLOL SUCCINATE EXT REL 50 MG TABCR PO (09:38)
--- NOTE | 2025-06-19 13:33 | P.DS_ITS ---
DS: Admitting Diagnosis Discharge Date 06/19/2025 Admitting Diagnosis Dizziness DS: Discharge Diagnosis Discharge Diagnosis (1) Pneumonia: Code(s): J18.9 - Pneumonia, unspecified organism Status: Acute Assessment and Plan: Please refer to hospital course for brief summary CXR from 06/14/25 showed RLL pnuemonia Discontinue Rocephin, Doxycycline and Flagyl DC Augmentin Monitor cultures (2) Acute heart failure: Code(s): I50.9 - Heart failure, unspecified Status: Acute Assessment and Plan: Right heart failure Presented with fall and SOB CT chest showed bilateral pleural effusion ECHO showed normal LVF, with right heart failure and pulm hypertension Hold Lasix, Now on Acetazolamide, continue Jardiance cardiology following (3) Hypertension: Qualifiers: Hypertension type: primary hypertension Qualified Code(s): I10 - Essential (primary) hypertension Code(s): I10 - Essential (primary) hypertension Status: Acute Assessment and Plan: Blood pressure is 111/57 -lisinopril currently on hold due to the acute kidney injury -continue with metoprolol -continued for a mental (4) Major depressive disorder, single episode, in partial remission: Code(s): F32.4 - Major depressive disorder, single episode, in partial remission Status: Acute Assessment and Plan: -continue duloxetine (5) LILY (acute kidney injury): Code(s): N17.9 - Acute kidney failure, unspecified Status: Acute Assessment and Plan: likely cardiorenal . -lisinopril is on hold. Cr 1.1 from 1.49 on [id number] bid, monitor (6) UTI (urinary tract infection): Code(s): N39.0 - Urinary tract infection, site not specified Status: Acute Assessment and Plan: -the patient is currently on Rocephin -blood cultures are pending -Urine culture positive for GNB -Started on Augmentin (7) Fall: Code(s): W19.XXXA - Unspecified fall, initial encounter Status: Acute Assessment and Plan: -the patient stated that she was weak and fell and laid on the floor for 2 days. -nurse behavioral health care evaluation greatly be appreciated for possible rehab -PT OT evaluation currently be appreciated. Plan LLE DVT Venous doppler showed left sided DVT Discontinued heparin started on Eliquis Monitor Acute hypoxemic resp failure Worsening OHS vs Right heart failure/Pulm hypertension vs Pneumonia CXR this morning showed RLL consolidation ECHO reviewed Continue diuresis on HFNC now, will continue AVAPS at electronic device monitor closely Discussed with pulmonology and patient will need ongoing nighttime BiPAP/AVAPS DVT prophylaxis on heparin infusion DS: Summary Hospital Course Hospital Course: 70-year-old with a history of hypertension, osteoarthritis, morbid obesity.Patient presented on 06/12/2025 after she had fallen and then on the floor for 2 days. In the emergency department her blood pressure was 182/102, heart rate 96, respirations 24, saturations on room air were 79%. On 6 L her sa turations were 93%. White blood cell count was 8.3, hemoglobin 17.6, BUN 48, creatinine 1.49, serum bicarbonate 31. B[place] [address], troponin was 0.069, repeat 0.70. COVID influenza RSV RT PCR negative, D-dimer 3.35. TSH 2.060. CT angiogram of the chest was negative for PE, moderate left and small right pleural effusion, pulmonary congestion, edema of the body wall. Patient was treated with IV Lasix, ceftriaxone and azithromycin and bronchodilators. Regarding her baseline patient can only walk across the room. She is a never smoker but was exposed to secondhand smoke from both of her parents and secondhand smoke until 20 years ago. 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 Echocardiogram with LVEF 50-55%, normal diastolic function, RV severely dilated with decreased function, right atrium moderately enlarged, moderate tricuspid regurg with PASP of 50. Patient will benefit from noninvasive ventilation but unfortunately she is unable to tolerate noninvasive ventilator. She will be discharged with 4 L oxygen nasal cannula. As per pulmonology patient will try a home noninvasive ventilator when she is at home as this machine may be more comfortable for her. Will continue to pursue noninvasive ventilator through [facility]: Respiratory rate 20, tidal volume 550, minimal EPAP 5, maximal EPAP 15, minimal pressure support 6, maximal pressure support 25 and 4 L bleed in. From a pulmonary perspective patient is ready to be discharged on these pulmonary medications: Anoro Ellipta 62.5-25 at 1 puff q.day Rescue albuterol 2 puffs q.4 hours p.r.n. shortness of breath or wheezing During the hospitalization patient was diagnosed with left lower extremity DVT and patient will be on Apixaban 10 mg p.o. b.i.d. through 06/21 then 5 mg p.o. b.i.d. in regards to urine culture patient completed her antibiotic. On the day of discharge, the patient was seen and examined. Vital signs were stable. Physical exam were stable and labs were reviewed at length. Discharge instructions, medications, and follow-up appointments were discussed with the patient at length and all day questions were answered. ER warnings were given. Status at Discharge Cognitive/behavioral status at discharge: Stable Time Spent with Patient Time attestation: Total time spent providing and/or coordinating discharge services: 45 minute Exam Const: General: cooperative, healthy appearing, comfortable, no acute distress, well developed, awake, Physically active, average body habitus and well nourished Nutritional Appearance: average body habitus and well nourished Orientation/consciousness: oriented to person, oriented to place, oriented to time and patient oriented x3 HENMT: Head: normal to inspection, No palpable skull fracture present, normocephalic, atraumatic and abrasion Ears: hearing grossly normal bi laterally and external ears normal Eyes: General: appearance normal, both eyes and all related structures Alignment and Position: alignment normal Periorbital: periorbital findings normal Eyelids: eyelids normal Pupils: Equal, round and reactive pupils present EOM: EOMs intact bilaterally Neck: Neck: normal visual inspection and full ROM Resp: Effort & Inspection: normal respiratory effort Auscultation: clear to auscultation bilaterally Cardio: Palpation: normal PMI Rate: regular rate Rhythm: regular rhythm Heart sounds: S1 normal heart sound present and S2 normal heart sound present Peripheral pulses: Peripheral pulses 2+ throughout GI: Inspection: normal to inspection Auscultation: normal bowel sounds Rectal Exam: deferred Skin: General skin exam: normal color Lesions: no lesions Rashes: no rashes Trauma: no lacerations or abrasions Wounds: no wounds Hair: normal Nails: normal Neuro: General: oriented to person, oriented to place, oriented to time and patient oriented x3 Cranial nerves: Yes Equal, round and reactive pupils present and Yes Normal hearing present Cognition (Neuro): normal cognition Speech: normal speech Motor exam (neuro): 5/5 motor strength present throughout Sensory Exam: normal sensation Extrem: General: normal to inspection Right upper extremity: normal to inspection and shoulder/upper arm Left upper extremity: normal to inspection and shoulder/upper arm Right lower extremity: normal to inspection Left lower extremity: normal to inspection Psych: Appearance: grossly normal Mental Status: mental status grossly no rmal Speech and movement: Normal speech and movement present Affect: normal affect Attitude: cooperative Thought process: Normal thought process present DS: Data Data Completed and Pending Labs on day of discharge: Labs from last 24 hours 06/19/25 06:10 WBC 6.7 RBC 4.76 Hgb 14.0 Hct 46.2 MCV 97.1 MCH 29.4 MCHC 30.3 L RDW 14.8 H Plt Count 148 L MPV 11.3 H Sodium 135 L Potassium 4.2 Chloride 93 L Carbon Dioxide > 40 H Anion Gap BUN 20 H Creatinine 0.85 Estim Creat Clear Calc 62 Estimated GFR > 60 Glucose 86 Calcium 9.3 Total Bilirubin 0.8 AST 40 H ALT 22 Alkaline Phosphatase 43 Total Protein 6.4 Albumin 3.5 Discharge Plan Discharge Attending physician on discharge: Rafy Way Consulting providers: Sony De La Cruz; Ronnell Mendez; Ronnell King Discharging Clinician: Rafy Way Anticipated Discharge Date/Time: 06/19/25 13:41 Patient Disposition: Inpatient Rehab Facility Activity: as tolerated Diet: heart healthy Discharge Instructions: Please take Apixaban 10 mg p.o. b.i.d. through 06/21 then 5 mg p.o. b.i.d. and follow-up with her PCP Follow-up with the hat finisher in 4 weeks Please for 4 L oxygen during night and as needed during the day. In regards to oxygen needs please follow-up with PCP and hat finisher Check blood pressure 1 to 2 times a day. Record and bring into your doctor for review. Call your doctor if your blood pressure is greater than 180/110 or less than 90/45. Walk with cane or other assist device. Take precautions to avoid falls. Rise slowly from a lying or sitting position. Pause before standing or walking. Contact your doctor or call 911 and come to the Emergency Room if you have any type of trauma, lightheadedness with standing or other worrisome symptoms. Avoid NSAIDs (ibuprofen, naproxen, Aleve). Tylenol is safe to take. Follow-up with your primary care provider in 1-2 weeks. Please call for appointment. Follow-up with Cardiology in 2-4 weeks. Please call for an appointment. Thank you for using [facility] for your health care needs. Patient Instructions: Heart Failure (GEN) Patient Language: Divehi Stand Alone Forms: General Discharge Information Follow-up/Referrals: Sony De La Cruz DO [Physician, Cardiology] Ronnell Figueroa MD [Primary Care Provider, Internal Medicine] Ronnell King MD [Physician, Pulmonology] Discharge Medications: New Eliquis 5 mg Tablet 10 mg PO Q12HR Qty: 12 0RF Rx Instructions: Please take Eliquis 10 mg p.o. b.i.d. until 0 06/21 Eliquis 5 mg Tablet 5 mg PO Q12HR Qty: 30 0RF Rx Instructions: Please take Eliquis 5 mg p.o. b.i.d. from 06/22/2025 furosemide 40 mg Tablet 40 mg PO BID Qty: 60 0RF umeclidinium-vilanterol [Anoro Ellipta] 62.5-25 mcg/actuation Blister With Device 1 inh inhalation DAILYRT Qty: 60 0RF Jardiance 10 mg Tablet 10 mg PO DAILY Qty: 30 0RF Continued duloxetine 60 mg capsule,delayed release(DR/EC) See Rx Instructions .ROUTE .COMPLEX Qty: 90 2RF Dose Instruction: TAKE 1 CAPSULE BY MOUTH EVERY DAY Rx Instructions: TAKE 1 CAPSULE BY MOUTH EVERY DAY albuterol sulfate 90 mcg/actuation HFA aerosol inhaler See Rx Instructions .ROUTE .COMPLEX Qty: 8.5 2RF Dose Instruction: 1 PUFF INHALED EVERY 4 HOURS Rx Instructions: 1 PUFF INHALED EVERY 4 HOURS fluticasone propionate 50 mcg/actuation spray,suspension See Rx Instructions .ROUTE .COMPLEX Qty: 48 2RF Dose Instruction: INSTILL 1 SPRAY INTO EACH NOSTRIL ONCE DAILY Rx Instructions: INSTILL 1 SPRAY INTO EACH NOSTRIL ONCE DAILY cholecalciferol (vitamin D3) 50 mcg (2,000 unit) tablet See Rx Instructions .ROUTE .COMPLEX Qty: 90 2RF Dose Instruction: TAKE 1 TABLET BY MOUTH EVERY DAY Rx Instructions: TAKE 1 TABLET BY MOUTH EVERY DAY metoprolol succinate [Toprol XL] 50 mg tablet extended release 24 hr 50 mg PO DAILY Qty: 90 2RF Discontinued lisinopril 20 mg tablet See Rx Instructions .ROUTE .COMPLEX Qty: 90 2RF Dose Instruction: TAKE 1 TABLET BY MOUTH EVERY DAY Rx Instructions: TAKE 1 TABLET BY MOUTH EVERY DAY verapamil 240 mg tablet extended release See Rx Instructions .ROUTE .COMPLEX Qty: 90 2RF Dose Instruction: TAKE 1 TABLET BY MOUTH EVERY DAY WITH FOOD Rx Instructions: TAKE 1 TABLET BY MOUTH EVERY DAY WITH FOOD celecoxib 200 mg capsule See Rx Instructions .ROUTE .COMPLEX Qty: 90 2RF Dose Instruction: TAKE 1 CAPSULE BY MOUTH EVERY DAY NEEDED Rx Instructions: TAKE 1 CAPSULE BY MOUTH EVERY DAY NEEDED Date of admission: 06/12/25 09:35 Primary Care Provider: Ronnell Figueroa Admitting Provider: Kiko Contreras Attending physician on admission: Kiko Contreras Condition: Stable
[2025-06-19 14:36] VITALS: BP 153/73; PULSE 80; RESP 18; TEMP 36.8; O2SAT 89
== END 2025-06-19 14:15 | DRG 193 ==
LOC: ANHED 06-12 01:14 → ANHIMU 06-12 02:11 → ANH3MED 06-19 13:43 → ANHIMU 06-20 07:51
PROVIDERS: General Practice; Internal Medicine; Internal Medicine Pulmonary Disease; Nurse Practitioner; Nurse Practitioner Gerontology; Student in an Organized Health Care Education/Training Program; Admitting Provider Family Medicine; Emergency Provider Student in an Organized Health Care Education/Training Program; PCP Emergency Medicine; Visit Provider General Practice
DX: J18.9 Pneumonia, unspecified organism (principal); I50.33 Acute on chronic diastolic (congestive) heart failure; J96.01 Acute respiratory failure with hypoxia; I82.412 Acute embolism and thrombosis of left femoral vein; I47.29 Other ventricular tachycardia; N39.0 Urinary tract infection, site not specified; N17.9 Acute kidney failure, unspecified; J96.12 Chronic respiratory failure with hypercapnia; E66.2 Morbid (severe) obesity with alveolar hypoventilation; Z68.43 Body mass index [BMI] 50.0-59.9, adult; I11.0 Hypertensive heart disease with heart failure; I27.20 Pulmonary hypertension, unspecified; E55.9 Vitamin D deficiency, unspecified; M15.0 Primary generalized (osteo)arthritis; F32.4 Major depressive disorder, single episode, in partial remission; Z20.822 Contact with and (suspected) exposure to COVID-19
CPT/HCPCS: 36415; 36569; 36600; 70450; 71045; 71275; 72125; 74177; 80048; 80053; 81001; 82248; 82375; 82550; 82805; 83050; 83605; 83690; 83735; 83880; 84145; 84439; 84443; 84484; 85018; 85025; 85027; 85055; 85380; 85610; 85730; 86140; 87040; 87086; 87186; 87637; 93005; 93970; 94002; 94003; 94640; 94762; 96365; 96367; 96375; 97110; 97161; 97165; 97530; 97535; 99285; A9270; C1751; C8929; G0378; J0456; J0696; J1120; J1644; J1836; J1938; J2003; J3475; J7040; J7050; P9047; Q9957; Q9967